=== PATIENT | female | born 1945 | race Caucasian/White ===

== ENCOUNTER 2016-12-07 18:54 | Inpatient (IN) | payer MEDICARE, OTHER ==
[~2016-12-07] VITALS: Ht 165.1 cm; Wt 126.6 kg
[~2016-12-07 18:54] MED LIST: ACET1TAB33 PO; CAPT12.52 PO; CARV3.12 PO; CARV3.122 PO; CLOP75TA PO; DIAZ2TAB PO; DIAZ5TAB PO; DIAZ5TAB4 PO; DIPH25CA58 PO; DULO60CA6 PO; FAMO-63 PO; FAMO20TA5 PO; FENO145T2 PO; FENO48TA16 PO; FURO-69 PO; FURO20TA3 PO; LANS30CA PO; LEXAPRO5 MG PO; POTA20TA12 PO; POTA20TA4 PO; POTA2IV.2 IV; PRED20TA PO; SIMV5TAB PO; SIMV5TAB5 PO; [UNRECOGNIZED DRUG - CODE] MC
[2016-12-07] MEDS ORDERED: IV NORMAL SALINE 1000ML BAG 1,000 ML IV ONE (19:30)
--- NOTE | 2016-12-07 19:30 | PHYS DOC ---
Past Medical History Past Medical History: CAD, CHF, GERD, Hypertension Past Surgical History: Other Additional Past Surgical Histo: COLOSTOMY Alcohol Use: None Drug Use: None Adult General Chief Complaint Chief Complaint: SHORTNESS OF BREATH HPI HPI Patient is a 71 year old female who presents with altered mental status and hypoxia from the fpc. Patient was transferred to us from [facility] for hypoxia with O2 saturations in the 70s. The fpc was a poor historian and does not know much about the patient. Reported no fevers. In the emergency room the patient was 77% on room air and on 4 L now patient's above 90 %. Patient had a left mastectomy and colostomy. Pertinent exam findings: Alert and oriented to person and place Tachycardia with no murmurs Decreased breath sounds bilaterally ED course: Patient was seen and evaluated and a septic workup was ordered 1915: EKG shows sinus tach rate of 104 no STEMI 2034: Discussed CC/HP/PMH with Dr. Merrill and recommends admit 2052: Pt PCP is Dr. Wyman who admits his own, therefore paged Dr. Wyman 2057: Discussed CC/HP/PMH with Dr. Wyman and recommends admit and consult pulmonary [] Pertinent results: Troponin negative CBC unremarkable CO2 of 40 CXR atelectasis at the bases CT angiogram pending MDM: After reviewing the chart, CC/HPI/PMH, physical exam, [lab results], [ radiological results], I will admit the patient for altered mental status and hypoxia and appears the patient has possible pneumonia on CT scan therefore we' ll start the patient on antibiotics. Review of Systems Review of Systems Review of systems are limited secondary to patient's clinical condition Current Medications Current Medications Current Medications Medications (Trade) Dose Ordered Sig/Meghana Start Time Stop Time Status Last Admin Dose Admin Iohexol (Omnipaque 300 Mg/ml) 75 ml 1X ONCE 12/07/16 20:15 12/07/16 20:17 DC 12/07/16 20:37 75 ML Sodium Chloride 1,000 ml @ 1,000 mls/hr 1X ONCE 12/07/16 19:30 12/07/16 20:29 DC 12/07/16 19:30 1,000 MLS/HR Allergies Allergies Allergies Coded Allergies Type Severity Reaction Last Updated Verified KAMERON Inhibitors Allergy Severe angioedema 07/09/16 Yes aspirin Allergy Intermediate 09/10/15 Yes Physical Exam Physical Exam GEN.: No apparent distress. Alert and oriented 2 HEENT: Head is normocephalic, atraumatic NECK: Supple. LUNGS: Decreased breath sounds bilaterally. HEART: Tachycardia, S1, S2 present. Peripheral pulses intact ABDOMEN: Soft, nontender. Positive bowel sounds. EXTREMITIES: Without any cyanosis. NEUROLOGIC: No focal neurological deficits PSYCHIATRIC: Confused. SKIN: No ulcerations, dry mucous membranes Current Patient Data Vital Signs Vital Signs Date Time Temp Pulse Resp B/P (MAP) Pulse Ox O2 Delivery O2 Flow Rate FiO2 12/07/16 18:59 98.6 107 24 143/96 (112) 77 Room Air 98.6 Lab Values Laboratory Tests Test 12/07/16 19:45 White Blood Count 10.4 x10^3/uL (4.0-11.0) Red Blood Count 4.69 x10^6/uL (3.50-5.40) Hemoglobin 13.2 g/dL (12.0-15.5) Hematocrit 40.1 % (36.0-47.0) Mean Corpuscular Volume 86 fL (79-100) Mean Corpuscular Hemoglobin 28 pg (25-35) Mean Corpuscular Hemoglobin Concent 33 g/dL (31-37) Red Cell Distribution Width 14.3 % (11.5-14.5) Platelet Count 315 x10^3/uL (140-400) Neutrophils (%) (Auto) 74 % (31-73) H Lymphocytes (%) (Auto) 14 % (24-48) L Monocytes (%) (Auto) 10 % (0-9) H Eosinophils (%) (Auto) 2 % (0-3) Basophils (%) (Auto) 1 % (0-3) Neutrophils # (Auto) 7.7 x10^3uL (1.8-7.7) Lymphocytes # (Auto) 1.5 x10^3/uL (1.0-4.8) Monocytes # (Auto) 1.1 x10^3/uL (0.0-1.1) Eosinophils # (Auto) 0.2 x10^3/uL (0.0-0.7) Basophils # (Auto) 0.1 x10^3/uL (0.0-0.2) Sodium Level 144 mmol/L (136-145) Potassium Level 3.8 mmol/L (3.5-5.1) Chloride Level 101 mmol/L (98-107) Carbon Dioxide Level 40 mmol/L (21-32) H Anion Gap 3 (6-14) L Blood Urea Nitrogen 12 mg/dL (7-20) Creatinine 0.7 mg/dL (0.6-1.0) Estimated GFR (Cockcroft-Gault) 82.0 BUN/Creatinine Ratio 17 (6-20) Glucose Level 134 mg/dL (70-99) H Lactic Acid Level 1.0 mmol/L (0.4-2.0) Calcium Level 8.6 mg/dL (8.5-10.1) Total Bilirubin 0.3 mg/dL (0.2-1.0) Aspartate Amino Transferase (AST) 14 U/L (15-37) L Alanine Aminotransferase (ALT) 21 U/L (14-59) Alkaline Phosphatase 74 U/L (46-116) Troponin I Quantitative < 0.017 ng/mL (0.000-0.055) Total Protein 6.8 g/dL (6.4-8.2) Albumin 2.8 g/dL (3.4-5.0) L Albumin/Globulin Ratio 0.7 (1.0-1.7) L Lipase 105 U/L (73-393) Laboratory Tests 12/07/16 19:45 Laboratory Tests 12/07/16 19:45 EKG EKG 1916: EKG shows sinus tach rate of 104 no STEMI[] Radiology/Procedures Radiology/Procedures Chest x-ray atelectasis bilaterally CTA of the chest pending [] Course & Med Decision Making Course & Med Decision Making Pertinent Labs and Imaging studies reviewed. (See chart for details) [] Dragon Disclaimer Dragon Disclaimer This electronic medical record was generated, in whole or in part, using a voice recognition dictation system. Departure Departure Impression: Primary Impression: Hypoxia Additional Impressions: Pneumonia Altered mental status Disposition: ADMITTED INPATIENT Admitting Physician: Sonia Wyman Condition: STABLE Referrals: SONIA WYMAN MD (PCP) Problem Qualifiers Additional Impressions: Pneumonia Pneumonia type: due to unspecified organism Laterality: bilateral Lung location: lower lobe of lung Qualified Codes: J18.9 - Pneumonia, unspecified organism Altered mental status Altered mental status type: unspecified Qualified Codes: R41.82 - Altered mental status, unspecified RAFAEL PITT DO Dec 07, 2016 19:30
[2016-12-07 19:56] LABS: BASO # 0.1 x10^3/uL (0.0-0.2); BASO % 1 % (0-3); EOS % 2 % (0-3); HEMATOCRIT 40.1 % (36.0-47.0); HEMOGLOBIN 13.2 g/dL (12.0-15.5); LYMPH # 1.5 x10^3/uL (1.0-4.8); LYMPH % 14 % (24-48); MEAN CORPUSCULAR HEMOGLOBIN 28 pg (25-35); MEAN CORPUSCULAR HGB CONC 33 g/dL (31-37); MEAN CORPUSCULAR VOLUME 86 fL (79-100); MONO % 10 % (0-9); NEUT % 74 % (31-73); PLATELET COUNT 315 x10^3/uL (140-400); RED BLOOD COUNT 4.69 x10^6/uL (3.50-5.40); RED CELL DISTRIBUTION WIDTH 14.3 % (11.5-14.5); WHITE BLOOD COUNT 10.4 x10^3/uL (4.0-11.0)
[2016-12-07 20:07] LABS: CALCIUM 8.6 mg/dL (8.5-10.1); CREATININE 0.7 mg/dL (0.6-1.0); POTASSIUM 3.8 mmol/L (3.5-5.1)
[2016-12-07 20:14] LABS: ALBUMIN 2.8 g/dL (3.4-5.0); ALBUMIN/GLOBULIN RATIO 0.7 (1.0-1.7); TOTAL BILIRUBIN 0.3 mg/dL (0.2-1.0); TOTAL PROTEIN 6.8 g/dL (6.4-8.2)
[2016-12-07] MEDS ORDERED: IOHEXOL 300 MG/ML 75 ML VIAL IV ONE (20:15)
[2016-12-07] MEDS ORDERED: MORPHINE SULFATE 4 MG/ML DISP.SYRIN. IV PRN (21:00)
[2016-12-07] MEDS ORDERED: ACETAMINOPHEN 325 MG TABLET. PO PRN (21:00)
[2016-12-07] MEDS ORDERED: ONDANSETRON PF 4 MG/2 ML VIAL. IV PRN (21:00)
--- NOTE | 2016-12-07 21:05 | RAD ---
Examination: CT angiography chest HISTORY: History of shortness of breath COMPARISON: None available TECHNIQUE: Axial CT scan images were performed with IV contrast. Coronal sagittal 3-D MIP reformats were performed Exposure: One or more of the following individualized dose reduction techniques were utilized for this examination: 1. Automated exposure control 2. Adjustment of the mA and/or kV according to patient size 3. Use of iterative reconstruction technique FINDINGS: Partially visualized enlarged appearing left thyroid lobe. The central airways are patent The caliber of the aorta grossly appears unremarkable. There is no evidence of filling defect identified in the main pulmonary arterial trunk and right and left main pulmonary arteries. The evaluation of the segmental branches of the pulmonary arteries is limited on this examination Patchy groundglass airspace opacities identified in the right upper lobe, right middle lobe and left upper lobe of the lung.. Bibasilar lung consolidation disease with air bronchograms identified left greater than right The visualized liver, spleen, adrenals grossly appears unremarkable Moderate degenerative changes thoracic spine IMPRESSION: 1. Bibasilar lung consolidation changes with air bronchograms likely pneumonia. Follow-up to resolution. 2. No evidence of central pulmonary embolism. 3. Patchy groundglass airspace opacities identified in the bilateral lungs likely atelectasis or pneumonitis. 4. Partially visualized enlarged left lobe of the thyroid gland. Electronically signed by: Manny Wharton MD (12/07/2016 9:03 PM)
[2016-12-07 21:06] LABS: BILIRUBIN,URINE NEGATIVE (NEG); GLUCOSE,URINE NEGATIVE (NEG); NITRITE,URINE NEGATIVE (NEG); PROTEIN,URINE NEGATIVE (NEG-TRACE)
[2016-12-07 21:15] LABS: BACTERIA,URINE 0 /HPF (0-FEW); RBC,URINE >40 /HPF (0-2); SQUAMOUS EPITHELIAL CELL,UR OCC /LPF; WBC,URINE 0 /HPF (0-4)
--- NOTE | 2016-12-07 21:25 | ACF ---
Admission Forms Criteria PNEUMONIA, COMMUNITY ACQUIRED Clinical Indications for Admission to Inpatient Care (Place 'X' for any and all applicable criteria): Admission to inpatient status for two midnights or more is indicated for ANY ONE of the following (1)(2)(3): [X]I. Hypoxia [ ]II. Hemodynamic instability [ ]III. Altered mental status that is severe or persistent [ ]IV. Dehydration that is severe or persistent. [ ]V. Bacteremia [X]. Moderate-risk or high-risk category patients (Pneumonia Severity Index ( PSI) class IV or V, or CURB-65 score of 3 or greater). [ ]VII. Intermediate-risk category patients (e.g., PSI class III or CURB-65 score 2) who do not improve with outpatient and observation care treatment [ ]VIII. Outpatient treatment failure as indicated by 1 or more of the following(9): [ ]a) Failure to respond to antibiotic (eg, resistant organism) [ ]b) Clinically significant adverse effects from medication (eg, vomiting) [ ]c) Complications of pneumonia (eg, empyema, bacteremia) [ ]d) Significant worsening of comorbid cond necessitating inpatient care (eg, chronic heart failure) [ ]IX. Appropriate diagnostic testing and treatment unavailable in outpatient or recovery facility (eg, testing or infection control measures unavailable) [ ]X. Respiratory finding (eg. tachypnea) that do not respond to outpatient observation care treatment [ ]XI. Complicated pleural effusions (eg, emphysema, exudative, loculated) [ ]XII. Immunocompromised patients (e.g., AIDS, chronic steroid use) at moderate or high risk based on clinical evaluation. Extended stay beyond goal length of stay may be needed for (20) [ ]a) Unclear diagnosis [ ]b) Pleural disease [ ]c) Severe pneumonia or treatment failure [ ]d) Respiratory failure [ ]e) New onset hyponatremia (serum Na concentration less than 135 mEq/L(mmol/ L) [ ]f) Clinically significant comorbid illness (eg, heart failure, atrial fibrillation with rapid heart rate, alcohol withdrawal, renal insufficiency)(34)(35) [ ]g) Comorbid acute exacerbation of COPD(36) [ ]h) Concomitant diagnosis of malignancy [ ]i) Concomitant altered mental status [ ]j) Culture-identified Gram-negative or antibiotic-resistant organism (eg, Pseudomonas, methicillin-resistant Staphylococcus aureus MRSA)(30) [ ]k) Healthcare-associated pneumonia (36) The original [facility] content created by [facility] has been revised. The portions of the content which have been revised are identified through the use of italic text, and [facility] has neither reviewed nor approved the modified material. All other unmodified content is copyright [facility]. Please see references footnoted in the original [facility] edition 2015 Admission Criteria Met?: Yes ARIANA ASKEW Dec 07, 2016 21:25
[2016-12-07] MEDS ORDERED: VANCOMYCIN 2 GM in IV NORMAL SALINE 500ML BAG 500 ML IV ONE (21:30)
[2016-12-07 21:45] VITALS: BP 138/72
[2016-12-07] MEDS: CEFEPIME HCL 1 GM in IV NORMAL SALINE 50ML 50 ML IV SCH (22:08)
[2016-12-07] MEDS ORDERED: ENOXAPARIN 40 MG/0.4 ML SYRINGE. SQ SCH (22:30)
[2016-12-07] MEDS ORDERED: ALBUTEROL SULFATE 2.5 MG/3 ML NEBU. NEB PRN (22:30)
[2016-12-07] MEDS: VANCOMYCIN PER PHARMACY MC PRN (22:58)
[2016-12-07 23:00] VITALS: BP 139/77
[2016-12-07 23:47] LABS: HCO3 ABG 31 mmol/L (21-28); PH ABG 7.31 (7.35-7.45); PO2 ABG 84 mmHg (65-108); SAT O2 ABG 94 % (92-99)
[2016-12-07 23:49] LABS: PCO2 ABG 63 mmHg (35-46)
[2016-12-08] VITALS (15 sets, daily range): BP systolic 112–177; BP diastolic 49–74
[2016-12-08] MEDS: FAMOTIDINE 20 MG TABLET. PO SCH ×2 (00:19→21:08)
[2016-12-08] MEDS: diazePAM 5 MG TABLET PO SCH ×2 (00:19→21:00)
[2016-12-08] MEDS: SIMVASTATIN 10 MG TABLET PO SCH ×2 (00:20→21:08)
[2016-12-08] MEDS: IV NORMAL SALINE 1000ML BAG 1,000 ML IV SCH ×2 (00:22→11:50)
[2016-12-08] MEDS: methylPREDNISolone SOD SUCC PF 125 MG/2 ML VIAL. IV SCH ×3 (05:31→21:08)
[2016-12-08] MEDS: CEFEPIME HCL 1 GM in IV NORMAL SALINE 50ML 50 ML IV SCH ×3 (05:33→22:00)
--- NOTE | 2016-12-08 07:08 | EKG ---
[facility] [address] [place] [address] Test Date: 2016-12-07 Test Time: 19:13:47 Pat Name: BLANCHE AGUILA Department: Room: Gender: F Director Custom: : 1945 Requested By: RAFAEL PITT Order Number: [id number] Reading MD: Measurements Intervals [place] Rate: 104 P: 32 MD: 152 QRS: 11 QRSD: 92 T: 28 QT: 326 QTc: 429 Interpretive Statements SINUS TACHYCARDIA QRS(T) CONTOUR ABNORMALITY CONSIDER ANTEROLATERAL MYOCARDIAL DAMAGE CONSISTENT WITH INFERIOR INFARCT PROBABLY OLD ABNORMAL ECG RI6.01 No previous ECG available for comparison
[2016-12-08] MEDS: IPRATRPIUM/ALBUTEROL 0.5/2.5MG 3 ML NEBU. NEB SCH ×4 (07:38→19:30)
--- NOTE | 2016-12-08 07:57 | RAD ---
Indication shortness of breath. Unresponsive patient. A single view of the chest was obtained and is compared to an exam 09/11/2015. There is mild generalized cardiomegaly. There is volume loss in the left lung base compatible with atelectasis or pneumonia. There is no gross congestive heart failure. There are degenerative changes about the right shoulder. IMPRESSION: Mild cardiomegaly, similar. Volume loss at the left lung base may reflect atelectasis or pneumonia.
[2016-12-08 08:06] LABS: OBC FLU VALID
[2016-12-08 08:39] LABS: HCO3 ABG 38 mmol/L (21-28); PH ABG 7.33 (7.35-7.45); PO2 ABG 58 mmHg (65-108); SAT O2 ABG 89 % (92-99)
[2016-12-08] MEDS: FUROSEMIDE 20 MG TABLET PO SCH (08:45)
[2016-12-08] MEDS: CARVEDILOL 3.125 MG TABLET. PO SCH ×2 (08:45→17:03)
[2016-12-08] MEDS: POTASSIUM CHLORIDE 20 MEQ TABLET.ER. PO SCH ×2 (08:46→17:03)
[2016-12-08] MEDS: DULoxetine HCL 30 MG CAPSULE.DR PO SCH (08:46)
[2016-12-08] MEDS: VANCOMYCIN 1.75 GM in IV NORMAL SALINE 500ML BAG 500 ML IV SCH ×2 (08:51→21:08)
[2016-12-08 09:09] LABS: BASO % 0 % (0-3); EOS % 1 % (0-3); HEMATOCRIT 40.7 % (36.0-47.0); HEMOGLOBIN 13.3 g/dL (12.0-15.5); LYMPH # 0.7 x10^3/uL (1.0-4.8); LYMPH % 8 % (24-48); MEAN CORPUSCULAR HEMOGLOBIN 28 pg (25-35); MEAN CORPUSCULAR HGB CONC 33 g/dL (31-37); MEAN CORPUSCULAR VOLUME 87 fL (79-100); MONO % 4 % (0-9); NEUT % 87 % (31-73); PLATELET COUNT 323 x10^3/uL (140-400); RED CELL DISTRIBUTION WIDTH 14.5 % (11.5-14.5); WHITE BLOOD COUNT 8.8 x10^3/uL (4.0-11.0)
[2016-12-08 09:32] LABS: CALCIUM 8.3 mg/dL (8.5-10.1); CREATININE 0.5 mg/dL (0.6-1.0); GFR 120.9; POTASSIUM 3.8 mmol/L (3.5-5.1)
--- NOTE | 2016-12-08 09:52 | PDOC1 ---
HISTORY AND PHYSICAL Chief Complaint Chief Complaint This year 71 yr old female has been admitted with a chief complaint of sob, mental status changes, found to have bilateral pneumonia.Pt was placed on BIPAP ,today more lethargic,will transfer to ICU. pt from [place] ,[facility], h/o severe copd.cough and congestion for last couple of days. Problems: Past Medical History Cardiovascular: CAD, HTN, Hyperlipidemia Pulmonary: COPD GI: Diverticulosis Heme/Onc: Cancer Renal/: Chronic renal insuff, UTI Past Surgical History Past Surgical History: Appendectomy, Mastectomy, Other (colostomy) Past Family History Family History: Family History Unknown Past Social History PSH ex smoker, no alcohol, [place] Review of Symptoms Review of Symptoms General ROS: positive for SOB. Psychological ROS: negative Ophthalmic ROS: negative ENT ROS: negative Allergy and Immunology ROS: negative Hematology and Lymphatic: negative Endocrine ROS: negative Cardiovascular ROS: no chest pain or dyspnea on exertion Gastrointestinal ROS: no abdominal pain, change in bowel habits, or black or bloody stools Genito-Urinary ROS: no dysuria, trouble voiding, or hematuria Musculoskeletal ROS: no pain Neurological ROS: negative Dermatological ROS: no rash Medications Current Medications Acetaminophen (Tylenol) 650 mg PRN Q4HRS PRN PO FEVER; Start 12/07/16 at 21:00; Stop 12/08/16 at 20:59 Acetaminophen/ Hydrocodone Bitart (Lortab 5/325) 1 tab PRN Q4HRS PRN PO MILD PAIN; Start 12/07/16 at 22:15 Albuterol Sulfate (Ventolin Neb Soln) 2.5 mg PRN QID PRN NEB SHORTNESS OF BREATH; Start 12/07/16 at 22:30 Albuterol/ Ipratropium (Duoneb) 3 ml RTQID NEB Last administered on 12/08/16 07 :38; Start 12/08/16 at 08:00 Carvedilol (Coreg) 3.125 mg BIDWMEALS PO Last administered on 12/08/16 08:45; Start 12/08/16 at 08:00 Cefepime HCl 1 gm/ Sodium Chloride 50 ml @ 100 mls/hr Q8HRS IV Last administered on 12/08/16 05:33; Start 12/07/16 at 22:00 Diazepam (Valium) 5 mg HS PO Last administered on 12/08/16 00:19; Start at 23:00 Duloxetine HCl (Cymbalta) 60 mg DAILY PO Last administered on 12/08/16 08:46; Start 12/08/16 at 09:00 Enoxaparin Sodium (Lovenox 40mg Syringe) 40 mg Q24H SQ Last administered on 12/08 00:21; Start 12/07/16 at 22:30 Famotidine (Pepcid) 20 mg HS PO Last administered on 12/08/16 00:19; Start 12/07 at 23:00 Furosemide (Lasix) 20 mg DAILY PO Last administered on 12/08/16 08:45; Start at 09:00 Iohexol (Omnipaque 300 Mg/ml) 75 ml 1X ONCE IV Last administered on 12/07/16 20:37; Start 12/07/16 at 20:15; Stop 12/07/16 at 20:17; Status DC Methylprednisolone Sodium Succinate (SOLU-Medrol 125MG VIAL) 80 mg Q8HRS IV Last administered on 12/08/16 05:31; Start 12/08/16 at 06:00 Morphine Sulfate 4 mg PRN Q2HR PRN IV PAIN; Start 12/07/16 at 21:00; Stop at 20:59 Ondansetron HCl (Zofran) 4 mg PRN Q8HRS PRN IV NAUSEA/VOMITING; Start 12/07/16 at 21:00; Stop 12/08/16 at 20:59 Potassium Chloride (Klor-Con) 20 meq BIDWMEALS PO Last administered on 08:46; Start 12/08/16 at 08:00 Simvastatin (Zocor) 5 mg HS PO Last administered on 12/08/16 00:20; Start at 21:00 Sodium Chloride 1,000 ml @ 75 mls/hr [id number] IV Last administered on 12/08/16 00:22; Start 12/07/16 at 22:30 Sodium Chloride 1,000 ml @ 1,000 mls/hr 1X ONCE IV Last administered on 19:30; Start 12/07/16 at 19:30; Stop 12/07/16 at 20:29; Status DC Vancomycin HCl 1 each 1X ONCE MC ; Start 12/09/16 at 09:30; Stop 12/09/16 at 09: 31 Vancomycin HCl (Vanco Per Pharmacy) 1 each PRN DAILY PRN MC SEE COMMENTS Last administered on 12/07/16 22:58; Start 12/07/16 at 21:00 Vancomycin HCl 1.75 gm/Sodium Chloride 500 ml @ 250 mls/hr Q12H IV Last administered on 12/08/16 08:51; Start 12/08/16 at 10:00 Vancomycin HCl 2 gm/Sodium Chloride 500 ml @ 250 mls/hr 1X ONCE IV Last administered on 12/07/16 22:08; Start 12/07/16 at 21:30; Stop 12/07/16 at 23:29; Status DC Allergy Allergies Coded Allergies Type Severity Reaction Last Updated Verified KAMERON Inhibitors Allergy Severe angioedema 07/09/16 Yes aspirin Allergy Intermediate 09/10/15 Yes Physical Exam Physical Exam General appearance - lethargy on BIPAP Mental Status - lethargic Head - prominent fore head and skull Chest - wheezes, present Heart - S1 and S2 normal Abdomen - soft, nontender,colostomy bag Neurological - lethargy Musculoskeletal - no muscular tenderness noted Extremities - no pedal edema Skin - warm and dry Labs Laboratory Tests Test 12/07/16 19:45 12/07/16 20:58 12/07/16 23:40 12/08/16 06:30 White Blood Count 10.4 x10^3/uL (4.0-11.0) Red Blood Count 4.69 x10^6/uL (3.50-5.40) Hemoglobin 13.2 g/dL (12.0-15.5) Hematocrit 40.1 % (36.0-47.0) Mean Corpuscular Volume 86 fL (79-100) Mean Corpuscular Hemoglobin 28 pg (25-35) Mean Corpuscular Hemoglobin Concent 33 g/dL (31-37) Red Cell Distribution Width 14.3 % (11.5-14.5) Platelet Count 315 x10^3/uL (140-400) Neutrophils (%) (Auto) 74 % (31-73) Lymphocytes (%) (Auto) 14 % (24-48) Monocytes (%) (Auto) 10 % (0-9) Eosinophils (%) (Auto) 2 % (0-3) Basophils (%) (Auto) 1 % (0-3) Neutrophils # (Auto) 7.7 x10^3uL (1.8-7.7) Lymphocytes # (Auto) 1.5 x10^3/uL (1.0-4.8) Monocytes # (Auto) 1.1 x10^3/uL (0.0-1.1) Eosinophils # (Auto) 0.2 x10^3/uL (0.0-0.7) Basophils # (Auto) 0.1 x10^3/uL (0.0-0.2) Sodium Level 144 mmol/L (136-145) Potassium Level 3.8 mmol/L (3.5-5.1) Chloride Level 101 mmol/L (98-107) Carbon Dioxide Level 40 mmol/L (21-32) Anion Gap 3 (6-14) Blood Urea Nitrogen 12 mg/dL (7-20) Creatinine 0.7 mg/dL (0.6-1.0) Estimated GFR (Cockcroft-Gault) 82.0 BUN/Creatinine Ratio 17 (6-20) Glucose Level 134 mg/dL (70-99) Lactic Acid Level 1.0 mmol/L (0.4-2.0) Calcium Level 8.6 mg/dL (8.5-10.1) Total Bilirubin 0.3 mg/dL (0.2-1.0) Aspartate Amino Transf (AST/SGOT) 14 U/L (15-37) Alanine Aminotransferase (ALT/SGPT) 21 U/L (14-59) Alkaline Phosphatase 74 U/L (46-116) Troponin I Quantitative < 0.017 ng/mL (0.000-0.055) Total Protein 6.8 g/dL (6.4-8.2) Albumin 2.8 g/dL (3.4-5.0) Albumin/Globulin Ratio 0.7 (1.0-1.7) Lipase 105 U/L (73-393) Urine Collection Type U cath Urine Color Yellow Urine Clarity Clear Urine pH 6.0 Urine Specific [place] >=1.030 Urine Protein Negative mg/dL (NEG-TRACE) Urine Glucose (UA) Negative mg/dL (NEG) Urine Ketones (Stick) Negative mg/dL (NEG) Urine Blood Large (NEG) Urine Nitrite Negative (NEG) Urine Bilirubin Negative (NEG) Urine Urobilinogen Dipstick 1.0 mg/dL (0.2 mg/dL) Urine Leukocyte Esterase Negative (NEG) Urine RBC >40 /HPF (0-2) Urine WBC 0 /HPF (0-4) Urine Squamous Epithelial Cells Occ /LPF Urine Transitional Epithelial Cells Occ /LPF Urine Bacteria 0 /HPF (0-FEW) Urine Mucus Slight /LPF O2 Saturation 94 % (92-99) Arterial Blood pH 7.31 (7.35-7.45) Arterial Blood pCO2 at Patient Temp 63 mmHg (35-46) Arterial Blood pO2 at Patient Temp 84 mmHg (65-108) Arterial Blood HCO3 31 mmol/L (21-28) Arterial Blood Base Excess 3 mmol/L (-3-3) FiO2 36.0 Influenza Type A Antigen Negative (NEGATIVE) Influenza Type B Antigen Negative (NEGATIVE) Test 12/08/16 07:40 White Blood Count 8.8 x10^3/uL (4.0-11.0) Red Blood Count 4.70 x10^6/uL (3.50-5.40) Hemoglobin 13.3 g/dL (12.0-15.5) Hematocrit 40.7 % (36.0-47.0) Mean Corpuscular Volume 87 fL (79-100) Mean Corpuscular Hemoglobin 28 pg (25-35) Mean Corpuscular Hemoglobin Concent 33 g/dL (31-37) Red Cell Distribution Width 14.5 % (11.5-14.5) Platelet Count 323 x10^3/uL (140-400) Neutrophils (%) (Auto) 87 % (31-73) Lymphocytes (%) (Auto) 8 % (24-48) Monocytes (%) (Auto) 4 % (0-9) Eosinophils (%) (Auto) 1 % (0-3) Basophils (%) (Auto) 0 % (0-3) Neutrophils # (Auto) 7.7 x10^3uL (1.8-7.7) Lymphocytes # (Auto) 0.7 x10^3/uL (1.0-4.8) Monocytes # (Auto) 0.3 x10^3/uL (0.0-1.1) Eosinophils # (Auto) 0.0 x10^3/uL (0.0-0.7) Basophils # (Auto) 0.0 x10^3/uL (0.0-0.2) Sodium Level 146 mmol/L (136-145) Potassium Level 3.8 mmol/L (3.5-5.1) Chloride Level 104 mmol/L (98-107) Carbon Dioxide Level 38 mmol/L (21-32) Anion Gap 4 (6-14) Blood Urea Nitrogen 12 mg/dL (7-20) Creatinine 0.5 mg/dL (0.6-1.0) Estimated GFR (Cockcroft-Gault) 120.9 Glucose Level 126 mg/dL (70-99) Calcium Level 8.3 mg/dL (8.5-10.1) Laboratory Tests Test 12/07/16 19:45 12/07/16 20:58 12/07/16 23:40 12/08/16 06:30 White Blood Count 10.4 x10^3/uL (4.0-11.0) Red Blood Count 4.69 x10^6/uL (3.50-5.40) Hemoglobin 13.2 g/dL (12.0-15.5) Hematocrit 40.1 % (36.0-47.0) Mean Corpuscular Volume 86 fL (79-100) Mean Corpuscular Hemoglobin 28 pg (25-35) Mean Corpuscular Hemoglobin Concent 33 g/dL (31-37) Red Cell Distribution Width 14.3 % (11.5-14.5) Platelet Count 315 x10^3/uL (140-400) Neutrophils (%) (Auto) 74 % (31-73) Lymphocytes (%) (Auto) 14 % (24-48) Monocytes (%) (Auto) 10 % (0-9) Eosinophils (%) (Auto) 2 % (0-3) Basophils (%) (Auto) 1 % (0-3) Neutrophils # (Auto) 7.7 x10^3uL (1.8-7.7) Lymphocytes # (Auto) 1.5 x10^3/uL (1.0-4.8) Monocytes # (Auto) 1.1 x10^3/uL (0.0-1.1) Eosinophils # (Auto) 0.2 x10^3/uL (0.0-0.7) Basophils # (Auto) 0.1 x10^3/uL (0.0-0.2) Sodium Level 144 mmol/L (136-145) Potassium Level 3.8 mmol/L (3.5-5.1) Chloride Level 101 mmol/L (98-107) Carbon Dioxide Level 40 mmol/L (21-32) Anion Gap 3 (6-14) Blood Urea Nitrogen 12 mg/dL (7-20) Creatinine 0.7 mg/dL (0.6-1.0) Estimated GFR (Cockcroft-Gault) 82.0 BUN/Creatinine Ratio 17 (6-20) Glucose Level 134 mg/dL (70-99) Lactic Acid Level 1.0 mmol/L (0.4-2.0) Calcium Level 8.6 mg/dL (8.5-10.1) Total Bilirubin 0.3 mg/dL (0.2-1.0) Aspartate Amino Transf (AST/SGOT) 14 U/L (15-37) Alanine Aminotransferase (ALT/SGPT) 21 U/L (14-59) Alkaline Phosphatase 74 U/L (46-116) Troponin I Quantitative < 0.017 ng/mL (0.000-0.055) Total Protein 6.8 g/dL (6.4-8.2) Albumin 2.8 g/dL (3.4-5.0) Albumin/Globulin Ratio 0.7 (1.0-1.7) Lipase 105 U/L (73-393) Urine Collection Type U cath Urine Color Yellow Urine Clarity Clear Urine pH 6.0 Urine Specific [place] >=1.030 Urine Protein Negative mg/dL (NEG-TRACE) Urine Glucose (UA) Negative mg/dL (NEG) Urine Ketones (Stick) Negative mg/dL (NEG) Urine Blood Large (NEG) Urine Nitrite Negative (NEG) Urine Bilirubin Negative (NEG) Urine Urobilinogen Dipstick 1.0 mg/dL (0.2 mg/dL) Urine Leukocyte Esterase Negative (NEG) Urine RBC >40 /HPF (0-2) Urine WBC 0 /HPF (0-4) Urine Squamous Epithelial Cells Occ /LPF Urine Transitional Epithelial Cells Occ /LPF Urine Bacteria 0 /HPF (0-FEW) Urine Mucus Slight /LPF O2 Saturation 94 % (92-99) Arterial Blood pH 7.31 (7.35-7.45) Arterial Blood pCO2 at Patient Temp 63 mmHg (35-46) Arterial Blood pO2 at Patient Temp 84 mmHg (65-108) Arterial Blood HCO3 31 mmol/L (21-28) Arterial Blood Base Excess 3 mmol/L (-3-3) FiO2 36.0 Influenza Type A Antigen Negative (NEGATIVE) Influenza Type B Antigen Negative (NEGATIVE) Test 12/08/16 07:40 White Blood Count 8.8 x10^3/uL (4.0-11.0) Red Blood Count 4.70 x10^6/uL (3.50-5.40) Hemoglobin 13.3 g/dL (12.0-15.5) Hematocrit 40.7 % (36.0-47.0) Mean Corpuscular Volume 87 fL (79-100) Mean Corpuscular Hemoglobin 28 pg (25-35) Mean Corpuscular Hemoglobin Concent 33 g/dL (31-37) Red Cell Distribution Width 14.5 % (11.5-14.5) Platelet Count 323 x10^3/uL (140-400) Neutrophils (%) (Auto) 87 % (31-73) Lymphocytes (%) (Auto) 8 % (24-48) Monocytes (%) (Auto) 4 % (0-9) Eosinophils (%) (Auto) 1 % (0-3) Basophils (%) (Auto) 0 % (0-3) Neutrophils # (Auto) 7.7 x10^3uL (1.8-7.7) Lymphocytes # (Auto) 0.7 x10^3/uL (1.0-4.8) Monocytes # (Auto) 0.3 x10^3/uL (0.0-1.1) Eosinophils # (Auto) 0.0 x10^3/uL (0.0-0.7) Basophils # (Auto) 0.0 x10^3/uL (0.0-0.2) Sodium Level 146 mmol/L (136-145) Potassium Level 3.8 mmol/L (3.5-5.1) Chloride Level 104 mmol/L (98-107) Carbon Dioxide Level 38 mmol/L (21-32) Anion Gap 4 (6-14) Blood Urea Nitrogen 12 mg/dL (7-20) Creatinine 0.5 mg/dL (0.6-1.0) Estimated GFR (Cockcroft-Gault) 120.9 Glucose Level 126 mg/dL (70-99) Calcium Level 8.3 mg/dL (8.5-10.1) Vitals Vital Signs Date Time Temp Pulse Resp B/P (MAP) Pulse Ox O2 Delivery O2 Flow Rate FiO2 12/08/16 08:45 102 177/66 12/08/16 08:00 Bi-pap 12/08/16 07:56 97.9 18 92 97.9 12/07/16 23:22 4.0 VTE Prophylaxis VTE Prophylaxis Devices: Yes VTE Pharmacological Prophylaxi: Yes Assessment Assessment 1.Acute resp failure with hypoxia and hypercapnia. 2.Health care associated Pneumonia. 3.Encephalopathy due to resp failure 4.Ch COPD 5.CAD stable 6.Left mastectomy for breast ca 7. H/o Colostomy for diverticular perforation Plan Plan BIPAP. Pulmonary consult. Vanco+cefepime. IV steroids Oxygen. DVT prevention move to ICU. critical care more than 30 mts coordinating care. For more details regarding further plans, please refer to the orders. YUE WYMAN MD Dec 08, 2016 09:52
[2016-12-08 10:32] LABS: FIO2 ABG 30; PCO2 ABG 73 mmHg (35-46)
[2016-12-08] MEDS: VANCOMYCIN PER PHARMACY MC PRN (10:34)
[2016-12-08 12:04] LABS: % EOS 1 % (0-5)
[2016-12-08 12:05] LABS: PLT ESTIMATE ADEQUATE (ADEQUATE)
[2016-12-08 12:39] LABS: HCO3 ABG 38 mmol/L (21-28); PH ABG 7.32 (7.35-7.45); PO2 ABG 63 mmHg (65-108); SAT O2 ABG 91 % (92-99)
--- NOTE | 2016-12-08 14:46 | PDOC2 ---
CONSULT Date of Consult Date of Consult DATE: 12/08/16 TIME: 14:44 Reason for Consult Reason for Consult: resp failure History of Present Illness Reason for Visit: PT CURRETNLY IN ICU ON BIPAP FOLLOWS COMMANDS NO CHEST PIN PRESENTED IWTH INCREASE SOA AND MENTAL STATUS CHANGE CT REVEIEWD NO PE BILATERAL PNEUMONIA PT WITH COUGH AND CONGESTION AT [place] Past Medical History Cardiovascular: CAD, HTN, Hyperlipidemia Pulmonary: COPD GI: Diverticulosis Heme/Onc: Cancer Renal/: Chronic renal insuff, UTI Past Surgical History Past Surgical History: Appendectomy, Mastectomy, Other (colostomy) Family History Family History UNKNOWN Family History: Family History Unknown Social History ALCOHOL: none Drugs: None Current Problem List Problem List Problems Medical Problems: (1) Pneumonia Status: Acute Current Medications Current Medications Current Medications Sodium Chloride 1,000 ml @ 1,000 mls/hr 1X ONCE IV Last administered on 19:30; Start 12/07/16 at 19:30; Stop 12/07/16 at 20:29; Status DC Iohexol (Omnipaque 300 Mg/ml) 75 ml 1X ONCE IV Last administered on 12/07/16 20:37; Start 12/07/16 at 20:15; Stop 12/07/16 at 20:17; Status DC Cefepime HCl 1 gm/ Sodium Chloride 50 ml @ 100 mls/hr Q8HRS IV Last administered on 12/08/16 14:00; Start 12/07/16 at 22:00 Vancomycin HCl (Vanco Per Pharmacy) 1 each PRN DAILY PRN MC SEE COMMENTS Last administered on 12/08/16 10:34; Start 12/07/16 at 21:00 Ondansetron HCl (Zofran) 4 mg PRN Q8HRS PRN IV NAUSEA/VOMITING; Start 12/07/16 at 21:00; Stop 12/08/16 at 20:59 Morphine Sulfate 4 mg PRN Q2HR PRN IV PAIN; Start 12/07/16 at 21:00; Stop at 20:59 Acetaminophen (Tylenol) 650 mg PRN Q4HRS PRN PO FEVER; Start 12/07/16 at 21:00; Stop 12/08/16 at 20:59 Vancomycin HCl 2 gm/Sodium Chloride 500 ml @ 250 mls/hr 1X ONCE IV Last administered on 12/07/16 22:08; Start 12/07/16 at 21:30; Stop 12/07/16 at 23:29; Status DC Albuterol/ Ipratropium (Duoneb) 3 ml RTQID NEB Last administered on 12/08/16 11 :25; Start 12/08/16 at 08:00 Albuterol Sulfate (Ventolin Neb Soln) 2.5 mg PRN QID PRN NEB SHORTNESS OF BREATH; Start 12/07/16 at 22:30 Sodium Chloride 1,000 ml @ 75 mls/hr [id number] IV Last administered on 12/08/16 11:50; Start 12/07/16 at 22:30 Methylprednisolone Sodium Succinate (SOLU-Medrol 125MG VIAL) 80 mg Q8HRS IV Last administered on 12/08/16 14:00; Start 12/08/16 at 06:00 Carvedilol (Coreg) 3.125 mg BIDWMEALS PO Last administered on 12/08/16 08:45; Start 12/08/16 at 08:00 Diazepam (Valium) 5 mg HS PO Last administered on 12/08/16 00:19; Start at 23:00 Famotidine (Pepcid) 20 mg HS PO Last administered on 12/08/16 00:19; Start 12/07 at 23:00 Furosemide (Lasix) 20 mg DAILY PO Last administered on 12/08/16 08:45; Start at 09:00 Potassium Chloride (Klor-Con) 20 meq BIDWMEALS PO Last administered on 08:46; Start 12/08/16 at 08:00 Simvastatin (Zocor) 5 mg HS PO Last administered on 12/08/16 00:20; Start at 21:00 Duloxetine HCl (Cymbalta) 60 mg DAILY PO Last administered on 12/08/16 08:46; Start 12/08/16 at 09:00 Acetaminophen/ Hydrocodone Bitart (Lortab 5/325) 1 tab PRN Q4HRS PRN PO MILD PAIN; Start 12/07/16 at 22:15 Enoxaparin Sodium (Lovenox 40mg Syringe) 40 mg Q24H SQ Last administered on 12/08 00:21; Start 12/07/16 at 22:30; Stop 12/08/16 at 10:29; Status DC Vancomycin HCl 1.75 gm/Sodium Chloride 500 ml @ 250 mls/hr Q12H IV Last administered on 12/08/16 08:51; Start 12/08/16 at 10:00 Vancomycin HCl 1 each 1X ONCE MC ; Start 12/09/16 at 09:30; Stop 12/09/16 at 09: 31 Enoxaparin Sodium (Lovenox 40mg Syringe) 40 mg BID SQ ; Start 12/08/16 at 21:00 Active Scripts Active Prednisone 20 Mg Tablet 50 Mg PO DAILY 5 Days Reported Diazepam 5 Mg Tablet 5 Mg PO HS Simvastatin 5 Mg Tablet 5 Mg PO HS Pepcid (Famotidine) 20 Mg Tablet 20 Mg PO HS Cymbalta (Duloxetine Hcl) 60 Mg Capsule.dr 60 Mg PO DAILY Carvedilol 3.125 Mg Tablet 1 Tab PO BID Klor-Con M20 (Potassium Chloride) 20 Meq Tab.er.prt 20 Meq PO BID Furosemide 20 Mg Tablet 20 Mg PO DAILY Allergies Allergies: Coded Allergies: KAMERON Inhibitors (Verified Allergy, Severe, angioedema, 07/09/16) aspirin (Verified Allergy, Intermediate, 09/10/15) ROS Review of System UNABLE TO OBTAIN Physical Exam General: Alert HEENT: EOMI Heart: Regular rate, Normal S1, Normal S2 Abdomen: Normal bowel sounds, Soft, No tenderness Extremities: No clubbing, No cyanosis Skin: No rashes, No breakdown Neuro: Other (ON BIAPA FOLLOW COMMMANDS) Vitals VITALS Vital Signs Date Time Temp Pulse Resp B/P (MAP) Pulse Ox O2 Delivery O2 Flow Rate FiO2 12/08/16 14:00 78 20 115/74 (88) 97 BiPAP/CPAP 12/08/16 12:00 99.1 99.1 12/07/16 23:22 4.0 Labs Labs Laboratory Tests Test 12/07/16 19:45 12/07/16 20:58 12/07/16 23:40 12/08/16 06:30 White Blood Count 10.4 x10^3/uL (4.0-11.0) Red Blood Count 4.69 x10^6/uL (3.50-5.40) Hemoglobin 13.2 g/dL (12.0-15.5) Hematocrit 40.1 % (36.0-47.0) Mean Corpuscular Volume 86 fL (79-100) Mean Corpuscular Hemoglobin 28 pg (25-35) Mean Corpuscular Hemoglobin Concent 33 g/dL (31-37) Red Cell Distribution Width 14.3 % (11.5-14.5) Platelet Count 315 x10^3/uL (140-400) Neutrophils (%) (Auto) 74 % (31-73) Lymphocytes (%) (Auto) 14 % (24-48) Monocytes (%) (Auto) 10 % (0-9) Eosinophils (%) (Auto) 2 % (0-3) Basophils (%) (Auto) 1 % (0-3) Neutrophils # (Auto) 7.7 x10^3uL (1.8-7.7) Lymphocytes # (Auto) 1.5 x10^3/uL (1.0-4.8) Monocytes # (Auto) 1.1 x10^3/uL (0.0-1.1) Eosinophils # (Auto) 0.2 x10^3/uL (0.0-0.7) Basophils # (Auto) 0.1 x10^3/uL (0.0-0.2) Sodium Level 144 mmol/L (136-145) Potassium Level 3.8 mmol/L (3.5-5.1) Chloride Level 101 mmol/L (98-107) Carbon Dioxide Level 40 mmol/L (21-32) Anion Gap 3 (6-14) Blood Urea Nitrogen 12 mg/dL (7-20) Creatinine 0.7 mg/dL (0.6-1.0) Estimated GFR (Cockcroft-Gault) 82.0 BUN/Creatinine Ratio 17 (6-20) Glucose Level 134 mg/dL (70-99) Lactic Acid Level 1.0 mmol/L (0.4-2.0) Calcium Level 8.6 mg/dL (8.5-10.1) Total Bilirubin 0.3 mg/dL (0.2-1.0) Aspartate Amino Transf (AST/SGOT) 14 U/L (15-37) Alanine Aminotransferase (ALT/SGPT) 21 U/L (14-59) Alkaline Phosphatase 74 U/L (46-116) Troponin I Quantitative < 0.017 ng/mL (0.000-0.055) Total Protein 6.8 g/dL (6.4-8.2) Albumin 2.8 g/dL (3.4-5.0) Albumin/Globulin Ratio 0.7 (1.0-1.7) Lipase 105 U/L (73-393) Urine Collection Type U cath Urine Color Yellow Urine Clarity Clear Urine pH 6.0 Urine Specific [place] >=1.030 Urine Protein Negative mg/dL (NEG-TRACE) Urine Glucose (UA) Negative mg/dL (NEG) Urine Ketones (Stick) Negative mg/dL (NEG) Urine Blood Large (NEG) Urine Nitrite Negative (NEG) Urine Bilirubin Negative (NEG) Urine Urobilinogen Dipstick 1.0 mg/dL (0.2 mg/dL) Urine Leukocyte Esterase Negative (NEG) Urine RBC >40 /HPF (0-2) Urine WBC 0 /HPF (0-4) Urine Squamous Epithelial Cells Occ /LPF Urine Transitional Epithelial Cells Occ /LPF Urine Bacteria 0 /HPF (0-FEW) Urine Mucus Slight /LPF O2 Saturation 94 % (92-99) Arterial Blood pH 7.31 (7.35-7.45) Arterial Blood pCO2 at Patient Temp 63 mmHg (35-46) Arterial Blood pO2 at Patient Temp 84 mmHg (65-108) Arterial Blood HCO3 31 mmol/L (21-28) Arterial Blood Base Excess 3 mmol/L (-3-3) FiO2 36.0 Influenza Type A Antigen Negative (NEGATIVE) Influenza Type B Antigen Negative (NEGATIVE) Test 12/08/16 07:40 12/08/16 08:00 12/08/16 11:55 White Blood Count 8.8 x10^3/uL (4.0-11.0) Red Blood Count 4.70 x10^6/uL (3.50-5.40) Hemoglobin 13.3 g/dL (12.0-15.5) Hematocrit 40.7 % (36.0-47.0) Mean Corpuscular Volume 87 fL (79-100) Mean Corpuscular Hemoglobin 28 pg (25-35) Mean Corpuscular Hemoglobin Concent 33 g/dL (31-37) Red Cell Distribution Width 14.5 % (11.5-14.5) Platelet Count 323 x10^3/uL (140-400) Neutrophils (%) (Auto) 87 % (31-73) Lymphocytes (%) (Auto) 8 % (24-48) Monocytes (%) (Auto) 4 % (0-9) Eosinophils (%) (Auto) 1 % (0-3) Basophils (%) (Auto) 0 % (0-3) Neutrophils # (Auto) 7.7 x10^3uL (1.8-7.7) Lymphocytes # (Auto) 0.7 x10^3/uL (1.0-4.8) Monocytes # (Auto) 0.3 x10^3/uL (0.0-1.1) Eosinophils # (Auto) 0.0 x10^3/uL (0.0-0.7) Basophils # (Auto) 0.0 x10^3/uL (0.0-0.2) Segmented Neutrophils % 69 % (35-66) Band Neutrophils % 20 % (0-9) Lymphocytes % 9 % (24-48) Monocytes % 1 % (0-10) Eosinophils % 1 % (0-5) Platelet Estimate Adequate (ADEQUATE) Large Platelets Present Sodium Level 146 mmol/L (136-145) Potassium Level 3.8 mmol/L (3.5-5.1) Chloride Level 104 mmol/L (98-107) Carbon Dioxide Level 38 mmol/L (21-32) Anion Gap 4 (6-14) Blood Urea Nitrogen 12 mg/dL (7-20) Creatinine 0.5 mg/dL (0.6-1.0) Estimated GFR (Cockcroft-Gault) 120.9 Glucose Level 126 mg/dL (70-99) Calcium Level 8.3 mg/dL (8.5-10.1) O2 Saturation 89 % (92-99) Arterial Blood pH 7.33 (7.35-7.45) Arterial Blood pCO2 at Patient Temp 73 mmHg (35-46) Arterial Blood pO2 at Patient Temp 58 mmHg (65-108) Arterial Blood HCO3 38 mmol/L (21-28) Arterial Blood Base Excess 9 mmol/L (-3-3) FiO2 30 Lactic Acid Level 1.0 mmol/L (0.4-2.0) Laboratory Tests Test 12/07/16 19:45 12/07/16 20:58 12/07/16 23:40 12/08/16 06:30 White Blood Count 10.4 x10^3/uL (4.0-11.0) Red Blood Count 4.69 x10^6/uL (3.50-5.40) Hemoglobin 13.2 g/dL (12.0-15.5) Hematocrit 40.1 % (36.0-47.0) Mean Corpuscular Volume 86 fL (79-100) Mean Corpuscular Hemoglobin 28 pg (25-35) Mean Corpuscular Hemoglobin Concent 33 g/dL (31-37) Red Cell Distribution Width 14.3 % (11.5-14.5) Platelet Count 315 x10^3/uL (140-400) Neutrophils (%) (Auto) 74 % (31-73) Lymphocytes (%) (Auto) 14 % (24-48) Monocytes (%) (Auto) 10 % (0-9) Eosinophils (%) (Auto) 2 % (0-3) Basophils (%) (Auto) 1 % (0-3) Neutrophils # (Auto) 7.7 x10^3uL (1.8-7.7) Lymphocytes # (Auto) 1.5 x10^3/uL (1.0-4.8) Monocytes # (Auto) 1.1 x10^3/uL (0.0-1.1) Eosinophils # (Auto) 0.2 x10^3/uL (0.0-0.7) Basophils # (Auto) 0.1 x10^3/uL (0.0-0.2) Sodium Level 144 mmol/L (136-145) Potassium Level 3.8 mmol/L (3.5-5.1) Chloride Level 101 mmol/L (98-107) Carbon Dioxide Level 40 mmol/L (21-32) Anion Gap 3 (6-14) Blood Urea Nitrogen 12 mg/dL (7-20) Creatinine 0.7 mg/dL (0.6-1.0) Estimated GFR (Cockcroft-Gault) 82.0 BUN/Creatinine Ratio 17 (6-20) Glucose Level 134 mg/dL (70-99) Lactic Acid Level 1.0 mmol/L (0.4-2.0) Calcium Level 8.6 mg/dL (8.5-10.1) Total Bilirubin 0.3 mg/dL (0.2-1.0) Aspartate Amino Transf (AST/SGOT) 14 U/L (15-37) Alanine Aminotransferase (ALT/SGPT) 21 U/L (14-59) Alkaline Phosphatase 74 U/L (46-116) Troponin I Quantitative < 0.017 ng/mL (0.000-0.055) Total Protein 6.8 g/dL (6.4-8.2) Albumin 2.8 g/dL (3.4-5.0) Albumin/Globulin Ratio 0.7 (1.0-1.7) Lipase 105 U/L (73-393) Urine Collection Type U cath Urine Color Yellow Urine Clarity Clear Urine pH 6.0 Urine Specific [place] >=1.030 Urine Protein Negative mg/dL (NEG-TRACE) Urine Glucose (UA) Negative mg/dL (NEG) Urine Ketones (Stick) Negative mg/dL (NEG) Urine Blood Large (NEG) Urine Nitrite Negative (NEG) Urine Bilirubin Negative (NEG) Urine Urobilinogen Dipstick 1.0 mg/dL (0.2 mg/dL) Urine Leukocyte Esterase Negative (NEG) Urine RBC >40 /HPF (0-2) Urine WBC 0 /HPF (0-4) Urine Squamous Epithelial Cells Occ /LPF Urine Transitional Epithelial Cells Occ /LPF Urine Bacteria 0 /HPF (0-FEW) Urine Mucus Slight /LPF O2 Saturation 94 % (92-99) Arterial Blood pH 7.31 (7.35-7.45) Arterial Blood pCO2 at Patient Temp 63 mmHg (35-46) Arterial Blood pO2 at Patient Temp 84 mmHg (65-108) Arterial Blood HCO3 31 mmol/L (21-28) Arterial Blood Base Excess 3 mmol/L (-3-3) FiO2 36.0 Influenza Type A Antigen Negative (NEGATIVE) Influenza Type B Antigen Negative (NEGATIVE) Test 12/08/16 07:40 12/08/16 08:00 12/08/16 11:55 White Blood Count 8.8 x10^3/uL (4.0-11.0) Red Blood Count 4.70 x10^6/uL (3.50-5.40) Hemoglobin 13.3 g/dL (12.0-15.5) Hematocrit 40.7 % (36.0-47.0) Mean Corpuscular Volume 87 fL (79-100) Mean Corpuscular Hemoglobin 28 pg (25-35) Mean Corpuscular Hemoglobin Concent 33 g/dL (31-37) Red Cell Distribution Width 14.5 % (11.5-14.5) Platelet Count 323 x10^3/uL (140-400) Neutrophils (%) (Auto) 87 % (31-73) Lymphocytes (%) (Auto) 8 % (24-48) Monocytes (%) (Auto) 4 % (0-9) Eosinophils (%) (Auto) 1 % (0-3) Basophils (%) (Auto) 0 % (0-3) Neutrophils # (Auto) 7.7 x10^3uL (1.8-7.7) Lymphocytes # (Auto) 0.7 x10^3/uL (1.0-4.8) Monocytes # (Auto) 0.3 x10^3/uL (0.0-1.1) Eosinophils # (Auto) 0.0 x10^3/uL (0.0-0.7) Basophils # (Auto) 0.0 x10^3/uL (0.0-0.2) Segmented Neutrophils % 69 % (35-66) Band Neutrophils % 20 % (0-9) Lymphocytes % 9 % (24-48) Monocytes % 1 % (0-10) Eosinophils % 1 % (0-5) Platelet Estimate Adequate (ADEQUATE) Large Platelets Present Sodium Level 146 mmol/L (136-145) Potassium Level 3.8 mmol/L (3.5-5.1) Chloride Level 104 mmol/L (98-107) Carbon Dioxide Level 38 mmol/L (21-32) Anion Gap 4 (6-14) Blood Urea Nitrogen 12 mg/dL (7-20) Creatinine 0.5 mg/dL (0.6-1.0) Estimated GFR (Cockcroft-Gault) 120.9 Glucose Level 126 mg/dL (70-99) Calcium Level 8.3 mg/dL (8.5-10.1) O2 Saturation 89 % (92-99) Arterial Blood pH 7.33 (7.35-7.45) Arterial Blood pCO2 at Patient Temp 73 mmHg (35-46) Arterial Blood pO2 at Patient Temp 58 mmHg (65-108) Arterial Blood HCO3 38 mmol/L (21-28) Arterial Blood Base Excess 9 mmol/L (-3-3) FiO2 30 Lactic Acid Level 1.0 mmol/L (0.4-2.0) Images Images IMPRESSION: 1. Bibasilar lung consolidation changes with air bronchograms likely pneumonia. Follow-up to resolution. 2. No evidence of central pulmonary embolism. 3. Patchy groundglass airspace opacities identified in the bilateral lungs likely atelectasis or pneumonitis. 4. Partially visualized enlarged left lobe of the thyroid gland. Assessment/Plan Assessment/Plan ACUTE CHRONIC HYPERCAPNEA RESP FAILURE AECOPD PNEUMONIA COVER FOR GRAM POS AND NEGATIVE BACTERIA POOJA/OHS METABOLIC AND TOXIC ENCE H.O COLOASOTMY SEC TO DIVERTICUALR PERFORATION BREAST CA S/P MAESTECTOMY NEGATIVE CT ANGIO NO PE PLAN BIPAP ABG NOTED WILL REPEAT LATER, NO NEED FOR INTUBATION AT THIS TIME ANTIBX STEROIDS DVT AND GI PROPH SEE ORDERS THANKS MELISSA GRIFFIN MD Dec 08, 2016 14:46
[2016-12-08 14:58] LABS: FIO2 ABG 30; PCO2 ABG 75 mmHg (35-46)
[2016-12-08 20:29] LABS: HCO3 ABG 32 mmol/L (21-28); PH ABG 7.33 (7.35-7.45); PO2 ABG 68 mmHg (65-108); SAT O2 ABG 92 % (92-99)
[2016-12-08 20:37] LABS: PCO2 ABG 62 mmHg (35-46)
[2016-12-08 20:38] LABS: FIO2 ABG 35
[2016-12-08] MEDS: ENOXAPARIN 40 MG/0.4 ML SYRINGE. SQ SCH (21:07)
[2016-12-08 22:57] LABS: HCO3 ABG 36 mmol/L (21-28); PO2 ABG 78 mmHg (65-108); SAT O2 ABG 95 % (92-99)
[2016-12-08 22:58] LABS: FIO2 ABG 32; PCO2 ABG 70 mmHg (35-46); PH ABG 7.33 (7.35-7.45)
[2016-12-09] VITALS (23 sets, daily range): BP systolic 85–145; BP diastolic 43–65
[2016-12-09] MEDS: IV NORMAL SALINE 1000ML BAG 1,000 ML IV SCH ×3 (01:10→21:25)
[2016-12-09 04:59] LABS: BASO % 0 % (0-3); EOS % 0 % (0-3); HEMATOCRIT 37.3 % (36.0-47.0); HEMOGLOBIN 11.8 g/dL (12.0-15.5); LYMPH # 0.9 x10^3/uL (1.0-4.8); LYMPH % 9 % (24-48); MEAN CORPUSCULAR HEMOGLOBIN 28 pg (25-35); MEAN CORPUSCULAR HGB CONC 32 g/dL (31-37); MEAN CORPUSCULAR VOLUME 88 fL (79-100); MONO % 3 % (0-9); NEUT % 88 % (31-73); PLATELET COUNT 325 x10^3/uL (140-400); RED BLOOD COUNT 4.24 x10^6/uL (3.50-5.40); RED CELL DISTRIBUTION WIDTH 14.5 % (11.5-14.5); WHITE BLOOD COUNT 9.9 x10^3/uL (4.0-11.0)
[2016-12-09 05:06] LABS: CALCIUM 8.1 mg/dL (8.5-10.1); CREATININE 0.5 mg/dL (0.6-1.0); GFR 120.9; POTASSIUM 4.7 mmol/L (3.5-5.1)
[2016-12-09] MEDS: CEFEPIME HCL 1 GM in IV NORMAL SALINE 50ML 50 ML IV SCH ×3 (06:07→21:21)
[2016-12-09] MEDS: methylPREDNISolone SOD SUCC PF 125 MG/2 ML VIAL. IV SCH ×3 (06:08→21:21)
[2016-12-09] MEDS: IPRATRPIUM/ALBUTEROL 0.5/2.5MG 3 ML NEBU. NEB SCH ×4 (07:07→19:49)
[2016-12-09] MEDS: CARVEDILOL 3.125 MG TABLET. PO SCH ×2 (08:00→17:00)
[2016-12-09 08:18] LABS: HCO3 ABG 36 mmol/L (21-28); PH ABG 7.29 (7.35-7.45); PO2 ABG 54 mmHg (65-108); SAT O2 ABG 85 % (92-99)
[2016-12-09 08:37] LABS: FIO2 ABG 35; PCO2 ABG 76 mmHg (35-46)
[2016-12-09] MEDS: ENOXAPARIN 40 MG/0.4 ML SYRINGE. SQ SCH ×2 (08:57→21:22)
[2016-12-09] MEDS: FUROSEMIDE 20 MG TABLET PO SCH (08:58)
[2016-12-09] MEDS: POTASSIUM CHLORIDE 20 MEQ TABLET.ER. PO SCH ×2 (08:58→17:22)
[2016-12-09] MEDS: DULoxetine HCL 30 MG CAPSULE.DR PO SCH (08:58)
--- NOTE | 2016-12-09 09:40 | RAD ---
Indication respiratory failure. A single view of the chest was obtained. Comparison is made to a study 2 days previously. Note is made of a CT examination of the chest 12/07/2016. Heart size is unchanged. There is no gross congestive heart failure. Aeration of the lung bases has improved slightly. A new finding is not seen. Chronic changes are noted about the shoulders. IMPRESSION: Slight interval improvement. No new finding seen
[2016-12-09] MEDS: VANCOMYCIN PER PHARMACY MC PRN (10:25)
--- NOTE | 2016-12-09 10:25 | PDOC ---
PROGRESS NOTES Subjective Subjective transferred to ICU for respiratory failure,placed on BIPAP Objective Objective Vital Signs Date Time Temp Pulse Resp B/P (MAP) Pulse Ox O2 Delivery O2 Flow Rate FiO2 12/09/16 10:10 87 26 131/51 (77) 97 BiPAP/CPAP 12/09/16 09:00 97.9 97.9 12/09/16 08:29 2.0 Intake and Output 12/09/16 07:00 Intake Total 2140 ml Balance 2140 ml Intake Oral 650 ml IV Total 1490 ml # Voids 2 # Bowel Movements 1 Physical Exam Abdomen: Normal bowel sounds, Soft, No tenderness Heart: Regular rate, Normal S1, Normal S2 Extremities: No clubbing, No cyanosis HEENT: EOMI Lungs: Other (linda wheezing) MUSCULOSKELETAL: No deformity, Osteoarthritic changes both hands Neuro: Other (ON BIAPA FOLLOW COMMMANDS) Skin: No rashes, No breakdown COMMENT BIPAP Diagnosis Problem List Problems Medical Problems: (1) Pneumonia Status: Acute Assessment Assessment Problems Medical Problems: (1) Pneumonia Status: Acute Assessment 1.Acute resp failure with hypoxia and hypercapnia. 2.Health care associated Pneumonia. 3.Encephalopathy due to resp failure 4.Ch COPD 5.CAD stable 6.Left mastectomy for breast ca 7. H/o Colostomy for diverticular perforation Plan Plan TPN after Picc line insertion BIPAP. Pulmonary consult appreciated. Vanco+cefepime. IV steroids Oxygen. DVT prevention moved to ICU. critical care less than 30 mts . For more details regarding further plans, please refer to the orders. Problems: Plan Plan of Care Problems Medical Problems: (1) Pneumonia Status: Acute Comment Review of Relevant I have reviewed the following items rivas (where applicable) has been applied. Labs Laboratory Tests Test 12/08/16 11:55 12/08/16 12:14 12/08/16 20:25 12/08/16 22:45 Lactic Acid Level 1.0 mmol/L (0.4-2.0) O2 Saturation 91 % (92-99) 92 % (92-99) 95 % (92-99) Arterial Blood pH 7.32 (7.35-7.45) 7.33 (7.35-7.45) 7.33 (7.35-7.45) Arterial Blood pCO2 at Patient Temp 75 mmHg (35-46) 62 mmHg (35-46) 70 mmHg (35-46) Arterial Blood pO2 at Patient Temp 63 mmHg (65-108) 68 mmHg (65-108) 78 mmHg (65-108) Arterial Blood HCO3 38 mmol/L (21-28) 32 mmol/L (21-28) 36 mmol/L (21-28) Arterial Blood Base Excess 9 mmol/L (-3-3) 4 mmol/L (-3-3) 8 mmol/L (-3-3) FiO2 30 35 32 Test 12/09/16 04:15 12/09/16 08:00 12/09/16 09:36 White Blood Count 9.9 x10^3/uL (4.0-11.0) Red Blood Count 4.24 x10^6/uL (3.50-5.40) Hemoglobin 11.8 g/dL (12.0-15.5) Hematocrit 37.3 % (36.0-47.0) Mean Corpuscular Volume 88 fL (79-100) Mean Corpuscular Hemoglobin 28 pg (25-35) Mean Corpuscular Hemoglobin Concent 32 g/dL (31-37) Red Cell Distribution Width 14.5 % (11.5-14.5) Platelet Count 325 x10^3/uL (140-400) Neutrophils (%) (Auto) 88 % (31-73) Lymphocytes (%) (Auto) 9 % (24-48) Monocytes (%) (Auto) 3 % (0-9) Eosinophils (%) (Auto) 0 % (0-3) Basophils (%) (Auto) 0 % (0-3) Neutrophils # (Auto) 8.8 x10^3uL (1.8-7.7) Lymphocytes # (Auto) 0.9 x10^3/uL (1.0-4.8) Monocytes # (Auto) 0.3 x10^3/uL (0.0-1.1) Eosinophils # (Auto) 0.0 x10^3/uL (0.0-0.7) Basophils # (Auto) 0.0 x10^3/uL (0.0-0.2) Sodium Level 147 mmol/L (136-145) Potassium Level 4.7 mmol/L (3.5-5.1) Chloride Level 107 mmol/L (98-107) Carbon Dioxide Level 37 mmol/L (21-32) Anion Gap 3 (6-14) Blood Urea Nitrogen 17 mg/dL (7-20) Creatinine 0.5 mg/dL (0.6-1.0) Estimated GFR (Cockcroft-Gault) 120.9 Glucose Level 147 mg/dL (70-99) Calcium Level 8.1 mg/dL (8.5-10.1) O2 Saturation 85 % (92-99) Arterial Blood pH 7.29 (7.35-7.45) Arterial Blood pCO2 at Patient Temp 76 mmHg (35-46) Arterial Blood pO2 at Patient Temp 54 mmHg (65-108) Arterial Blood HCO3 36 mmol/L (21-28) Arterial Blood Base Excess 7 mmol/L (-3-3) FiO2 35 Vancomycin Level Trough 14.2 mcg/mL (10.0-20.0) Vancomycin Last Dose Date 12/08/16 Vancomycin Last Dose Time 2200 Microbiology 12/07/16 Blood Culture - Preliminary, Resulted NO GROWTH AFTER 1 DAY 12/08/16 Gram Stain - Final, Complete Medications Current Medications Enoxaparin Sodium (Lovenox 40mg Syringe) 40 mg BID SQ Last administered on t 08:57; Start 12/08/16 at 21:00 Vancomycin HCl 1 each 1X ONCE MC ; Start 12/09/16 at 09:30; Stop 12/09/16 at 09: 31; Status DC Vitals/I & O Vital Sign - Last 24 Hours 12/08/16 12/08/16 12/08/16 12/08/16 11:00 11:00 11:20 12:00 Temp 99.1 99.1 Pulse 86 82 Resp 20 20 B/P (MAP) 140/59 (86) 118/56 (76) Pulse Ox 90 97 94 O2 Delivery BiPAP/CPAP Bi-pap BiPAP/CPAP BiPAP/CPAP 12/08/16 12/08/16 12/08/16 12/08/16 12:56 13:00 14:00 15:00 Pulse 86 78 78 Resp 22 20 22 B/P (MAP) 117/60 (79) 115/74 (88) 129/52 (77) Pulse Ox 94 94 97 97 O2 Delivery BiPAP/CPAP BiPAP/CPAP BiPAP/CPAP BiPAP/CPAP 12/08/16 12/08/16 12/08/163/17 15:19 16:00 17:02 17:03 Pulse 82 85 Resp 22 B/P (MAP) 144/57 (86) 144/57 Pulse Ox 96 93 96 O2 Delivery BiPAP/CPAP BiPAP/CPAP BiPAP/CPAP 12/08/16 12/08/16 12/08/16 12/08/16 17:04 18:11 19:00 19:30 Temp 98.6 98.6 Pulse 89 87 85 Resp 24 24 B/P (MAP) 120/61 (80) 112/49 (70) 112/59 (76) Pulse Ox 94 92 96 95 O2 Delivery BiPAP/CPAP BiPAP/CPAP BiPAP/CPAP BiPAP/CPAP 12/08/16 12/08/16 12/08/16 12/08/16 19:47 20:00 21:00 22:00 Temp 98.6 97.6 98.2 98.6 97.6 98.2 Pulse 86 86 94 Resp 24 16 18 B/P (MAP) 134/64 (87) 147/58 (87) 133/54 (80) Pulse Ox 92 92 O2 Delivery Bi-pap BiPAP/CPAP Nasal Cannula Nasal Cannula O2 Flow Rate 3.0 3.0 12/08/16 12/08/16 12/09/16 12/09/16 23:00 23:00 00:01 01:00 Temp 98.0 98.0 97.8 98.0 98.0 97.8 Pulse 80 82 86 Resp 22 B/P (MAP) 137/59 (85) 128/50 (76) 138/47 (77) Pulse Ox 96 95 93 93 O2 Delivery BiPAP/CPAP BiPAP/CPAP BiPAP/CPAP BiPAP/CPAP 12/09/16 12/09/16 12/09/16 12/09/16 01:15 02:00 03:00 04:00 Temp 98.0 97.8 98.0 98.0 97.8 98.0 Pulse 94 92 80 Resp 18 18 16 B/P (MAP) 123/47 (72) 115/54 (74) 112/58 (76) Pulse Ox 97 89 92 92 O2 Delivery BiPAP/CPAP BiPAP/CPAP Nasal Cannula O2 Flow Rate 2.0 2.0 12/09/16 12/09/16 12/09/16 12/09/16 05:00 06:00 07:00 07:07 Temp 98.4 97.8 98.4 97.8 Pulse 81 88 78 Resp 16 20 18 B/P (MAP) 108/63 (78) 115/61 (79) 85/43 (57) Pulse Ox 2 96 96 96 O2 Delivery Nasal Cannula BiPAP/CPAP BiPAP/CPAP BiPAP/CPAP 12/09/16 12/09/16 12/09/16 12/09/16 08:00 08:00 08:29 08:58 Pulse 97 88 Resp 20 B/P (MAP) 100/54 100/54 (69) Pulse Ox 94 96 O2 Delivery BiPAP/CPAP Bi-pap BiPAP/CPAP O2 Flow Rate 2.0 12/09/16 12/09/16 09:00 10:10 Temp 97.9 97.9 Pulse 94 87 Resp 22 26 B/P (MAP) 96/65 (75) 131/51 (77) Pulse Ox 97 97 O2 Delivery BiPAP/CPAP BiPAP/CPAP Intake and Output 12/08/16 12/08/16 12/09/16 15:00 23:00 07:00 Intake Total 0 ml 2140 ml Balance 0 ml 2140 ml YUE WYMAN MD Dec 09, 2016 10:25
[2016-12-09] MEDS: VANCOMYCIN 1.75 GM in IV NORMAL SALINE 500ML BAG 500 ML IV SCH ×2 (10:26→21:21)
[2016-12-09] MEDS ORDERED: AMINO AC 3%/ELECTROLYTE/GLYCER 1,000 ML IV SCH (10:30)
[2016-12-09 14:03] LABS: MAGNESIUM 2.1 mg/dL (1.8-2.4); PHOSPHORUS 3.7 mg/dL (2.6-4.7)
[2016-12-09] MEDS: TPN PER PHARMACY MC PRN (14:40)
[2016-12-09 16:32] LABS: HCO3 ABG 35 mmol/L (21-28); PH ABG 7.34 (7.35-7.45); PO2 ABG 75 mmHg (65-108); SAT O2 ABG 94 % (92-99)
--- NOTE | 2016-12-09 17:01 | PDOC ---
PULMONARY PROGRESS NOTES Subjective PT ON BIPAP FOLLOW COMMANDS Vitals Vital Signs Date Time Temp Pulse Resp B/P (MAP) Pulse Ox O2 Delivery O2 Flow Rate FiO2 12/09/16 15:58 Venturi Mask 9.0 12/09/16 15:10 84 28 125/55 (78) 100 12/09/16 09:00 97.9 97.9 ROS: No Nausea, No Chest Pain, No Abdominal Pain, No Increase Cough General: Alert Lungs: Clear, Crackles Cardiovascular: S1 Abdomen: Soft Neuro Exam: Alert Extremities: No Edema Labs Laboratory Tests Test 12/07/16 19:45 12/07/16 20:58 12/07/16 23:40 12/08/16 00:50 White Blood Count 10.4 x10^3/uL (4.0-11.0) Red Blood Count 4.69 x10^6/uL (3.50-5.40) Hemoglobin 13.2 g/dL (12.0-15.5) Hematocrit 40.1 % (36.0-47.0) Mean Corpuscular Volume 86 fL (79-100) Mean Corpuscular Hemoglobin 28 pg (25-35) Mean Corpuscular Hemoglobin Concent 33 g/dL (31-37) Red Cell Distribution Width 14.3 % (11.5-14.5) Platelet Count 315 x10^3/uL (140-400) Neutrophils (%) (Auto) 74 % (31-73) Lymphocytes (%) (Auto) 14 % (24-48) Monocytes (%) (Auto) 10 % (0-9) Eosinophils (%) (Auto) 2 % (0-3) Basophils (%) (Auto) 1 % (0-3) Neutrophils # (Auto) 7.7 x10^3uL (1.8-7.7) Lymphocytes # (Auto) 1.5 x10^3/uL (1.0-4.8) Monocytes # (Auto) 1.1 x10^3/uL (0.0-1.1) Eosinophils # (Auto) 0.2 x10^3/uL (0.0-0.7) Basophils # (Auto) 0.1 x10^3/uL (0.0-0.2) Sodium Level 144 mmol/L (136-145) Potassium Level 3.8 mmol/L (3.5-5.1) Chloride Level 101 mmol/L (98-107) Carbon Dioxide Level 40 mmol/L (21-32) Anion Gap 3 (6-14) Blood Urea Nitrogen 12 mg/dL (7-20) Creatinine 0.7 mg/dL (0.6-1.0) Estimated GFR (Cockcroft-Gault) 82.0 BUN/Creatinine Ratio 17 (6-20) Glucose Level 134 mg/dL (70-99) Lactic Acid Level 1.0 mmol/L (0.4-2.0) Calcium Level 8.6 mg/dL (8.5-10.1) Total Bilirubin 0.3 mg/dL (0.2-1.0) Aspartate Amino Transf (AST/SGOT) 14 U/L (15-37) Alanine Aminotransferase (ALT/SGPT) 21 U/L (14-59) Alkaline Phosphatase 74 U/L (46-116) Troponin I Quantitative < 0.017 ng/mL (0.000-0.055) Total Protein 6.8 g/dL (6.4-8.2) Albumin 2.8 g/dL (3.4-5.0) Albumin/Globulin Ratio 0.7 (1.0-1.7) Lipase 105 U/L (73-393) Urine Collection Type U cath Urine Color Yellow Urine Clarity Clear Urine pH 6.0 Urine Specific [place] >=1.030 Urine Protein Negative mg/dL (NEG-TRACE) Urine Glucose (UA) Negative mg/dL (NEG) Urine Ketones (Stick) Negative mg/dL (NEG) Urine Blood Large (NEG) Urine Nitrite Negative (NEG) Urine Bilirubin Negative (NEG) Urine Urobilinogen Dipstick 1.0 mg/dL (0.2 mg/dL) Urine Leukocyte Esterase Negative (NEG) Urine RBC >40 /HPF (0-2) Urine WBC 0 /HPF (0-4) Urine Squamous Epithelial Cells Occ /LPF Urine Transitional Epithelial Cells Occ /LPF Urine Bacteria 0 /HPF (0-FEW) Urine Mucus Slight /LPF O2 Saturation 94 % (92-99) Arterial Blood pH 7.31 (7.35-7.45) Arterial Blood pCO2 at Patient Temp 63 mmHg (35-46) Arterial Blood pO2 at Patient Temp 84 mmHg (65-108) Arterial Blood HCO3 31 mmol/L (21-28) Arterial Blood Base Excess 3 mmol/L (-3-3) FiO2 36.0 Nasal Screen MRSA (PCR) Negative (Negative) Test 12/08/16 06:30 12/08/16 07:40 12/08/16 08:00 12/08/16 11:55 Influenza Type A Antigen Negative (NEGATIVE) Influenza Type B Antigen Negative (NEGATIVE) White Blood Count 8.8 x10^3/uL (4.0-11.0) Red Blood Count 4.70 x10^6/uL (3.50-5.40) Hemoglobin 13.3 g/dL (12.0-15.5) Hematocrit 40.7 % (36.0-47.0) Mean Corpuscular Volume 87 fL (79-100) Mean Corpuscular Hemoglobin 28 pg (25-35) Mean Corpuscular Hemoglobin Concent 33 g/dL (31-37) Red Cell Distribution Width 14.5 % (11.5-14.5) Platelet Count 323 x10^3/uL (140-400) Neutrophils (%) (Auto) 87 % (31-73) Lymphocytes (%) (Auto) 8 % (24-48) Monocytes (%) (Auto) 4 % (0-9) Eosinophils (%) (Auto) 1 % (0-3) Basophils (%) (Auto) 0 % (0-3) Neutrophils # (Auto) 7.7 x10^3uL (1.8-7.7) Lymphocytes # (Auto) 0.7 x10^3/uL (1.0-4.8) Monocytes # (Auto) 0.3 x10^3/uL (0.0-1.1) Eosinophils # (Auto) 0.0 x10^3/uL (0.0-0.7) Basophils # (Auto) 0.0 x10^3/uL (0.0-0.2) Segmented Neutrophils % 69 % (35-66) Band Neutrophils % 20 % (0-9) Lymphocytes % 9 % (24-48) Monocytes % 1 % (0-10) Eosinophils % 1 % (0-5) Platelet Estimate Adequate (ADEQUATE) Large Platelets Present Sodium Level 146 mmol/L (136-145) Potassium Level 3.8 mmol/L (3.5-5.1) Chloride Level 104 mmol/L (98-107) Carbon Dioxide Level 38 mmol/L (21-32) Anion Gap 4 (6-14) Blood Urea Nitrogen 12 mg/dL (7-20) Creatinine 0.5 mg/dL (0.6-1.0) Estimated GFR (Cockcroft-Gault) 120.9 Glucose Level 126 mg/dL (70-99) Calcium Level 8.3 mg/dL (8.5-10.1) O2 Saturation 89 % (92-99) Arterial Blood pH 7.33 (7.35-7.45) Arterial Blood pCO2 at Patient Temp 73 mmHg (35-46) Arterial Blood pO2 at Patient Temp 58 mmHg (65-108) Arterial Blood HCO3 38 mmol/L (21-28) Arterial Blood Base Excess 9 mmol/L (-3-3) FiO2 30 Lactic Acid Level 1.0 mmol/L (0.4-2.0) Test 12/08/16 12:14 12/08/16 20:25 12/08/16 22:45 12/09/16 04:15 O2 Saturation 91 % (92-99) 92 % (92-99) 95 % (92-99) Arterial Blood pH 7.32 (7.35-7.45) 7.33 (7.35-7.45) 7.33 (7.35-7.45) Arterial Blood pCO2 at Patient Temp 75 mmHg (35-46) 62 mmHg (35-46) 70 mmHg (35-46) Arterial Blood pO2 at Patient Temp 63 mmHg (65-108) 68 mmHg (65-108) 78 mmHg (65-108) Arterial Blood HCO3 38 mmol/L (21-28) 32 mmol/L (21-28) 36 mmol/L (21-28) Arterial Blood Base Excess 9 mmol/L (-3-3) 4 mmol/L (-3-3) 8 mmol/L (-3-3) FiO2 30 35 32 White Blood Count 9.9 x10^3/uL (4.0-11.0) Red Blood Count 4.24 x10^6/uL (3.50-5.40) Hemoglobin 11.8 g/dL (12.0-15.5) Hematocrit 37.3 % (36.0-47.0) Mean Corpuscular Volume 88 fL (79-100) Mean Corpuscular Hemoglobin 28 pg (25-35) Mean Corpuscular Hemoglobin Concent 32 g/dL (31-37) Red Cell Distribution Width 14.5 % (11.5-14.5) Platelet Count 325 x10^3/uL (140-400) Neutrophils (%) (Auto) 88 % (31-73) Lymphocytes (%) (Auto) 9 % (24-48) Monocytes (%) (Auto) 3 % (0-9) Eosinophils (%) (Auto) 0 % (0-3) Basophils (%) (Auto) 0 % (0-3) Neutrophils # (Auto) 8.8 x10^3uL (1.8-7.7) Lymphocytes # (Auto) 0.9 x10^3/uL (1.0-4.8) Monocytes # (Auto) 0.3 x10^3/uL (0.0-1.1) Eosinophils # (Auto) 0.0 x10^3/uL (0.0-0.7) Basophils # (Auto) 0.0 x10^3/uL (0.0-0.2) Sodium Level 147 mmol/L (136-145) Potassium Level 4.7 mmol/L (3.5-5.1) Chloride Level 107 mmol/L (98-107) Carbon Dioxide Level 37 mmol/L (21-32) Anion Gap 3 (6-14) Blood Urea Nitrogen 17 mg/dL (7-20) Creatinine 0.5 mg/dL (0.6-1.0) Estimated GFR (Cockcroft-Gault) 120.9 Glucose Level 147 mg/dL (70-99) Calcium Level 8.1 mg/dL (8.5-10.1) Phosphorus Level 3.7 mg/dL (2.6-4.7) Magnesium Level 2.1 mg/dL (1.8-2.4) Test 12/09/16 08:00 12/09/16 09:36 O2 Saturation 85 % (92-99) Arterial Blood pH 7.29 (7.35-7.45) Arterial Blood pCO2 at Patient Temp 76 mmHg (35-46) Arterial Blood pO2 at Patient Temp 54 mmHg (65-108) Arterial Blood HCO3 36 mmol/L (21-28) Arterial Blood Base Excess 7 mmol/L (-3-3) FiO2 35 Vancomycin Level Trough 14.2 mcg/mL (10.0-20.0) Vancomycin Last Dose Date 12/08/16 Vancomycin Last Dose Time 2200 Laboratory Tests Test 12/08/16 20:25 12/08/16 22:45 12/09/16 04:15 12/09/16 08:00 O2 Saturation 92 % (92-99) 95 % (92-99) 85 % (92-99) Arterial Blood pH 7.33 (7.35-7.45) 7.33 (7.35-7.45) 7.29 (7.35-7.45) Arterial Blood pCO2 at Patient Temp 62 mmHg (35-46) 70 mmHg (35-46) 76 mmHg (35-46) Arterial Blood pO2 at Patient Temp 68 mmHg (65-108) 78 mmHg (65-108) 54 mmHg (65-108) Arterial Blood HCO3 32 mmol/L (21-28) 36 mmol/L (21-28) 36 mmol/L (21-28) Arterial Blood Base Excess 4 mmol/L (-3-3) 8 mmol/L (-3-3) 7 mmol/L (-3-3) FiO2 35 32 35 White Blood Count 9.9 x10^3/uL (4.0-11.0) Red Blood Count 4.24 x10^6/uL (3.50-5.40) Hemoglobin 11.8 g/dL (12.0-15.5) Hematocrit 37.3 % (36.0-47.0) Mean Corpuscular Volume 88 fL (79-100) Mean Corpuscular Hemoglobin 28 pg (25-35) Mean Corpuscular Hemoglobin Concent 32 g/dL (31-37) Red Cell Distribution Width 14.5 % (11.5-14.5) Platelet Count 325 x10^3/uL (140-400) Neutrophils (%) (Auto) 88 % (31-73) Lymphocytes (%) (Auto) 9 % (24-48) Monocytes (%) (Auto) 3 % (0-9) Eosinophils (%) (Auto) 0 % (0-3) Basophils (%) (Auto) 0 % (0-3) Neutrophils # (Auto) 8.8 x10^3uL (1.8-7.7) Lymphocytes # (Auto) 0.9 x10^3/uL (1.0-4.8) Monocytes # (Auto) 0.3 x10^3/uL (0.0-1.1) Eosinophils # (Auto) 0.0 x10^3/uL (0.0-0.7) Basophils # (Auto) 0.0 x10^3/uL (0.0-0.2) Sodium Level 147 mmol/L (136-145) Potassium Level 4.7 mmol/L (3.5-5.1) Chloride Level 107 mmol/L (98-107) Carbon Dioxide Level 37 mmol/L (21-32) Anion Gap 3 (6-14) Blood Urea Nitrogen 17 mg/dL (7-20) Creatinine 0.5 mg/dL (0.6-1.0) Estimated GFR (Cockcroft-Gault) 120.9 Glucose Level 147 mg/dL (70-99) Calcium Level 8.1 mg/dL (8.5-10.1) Phosphorus Level 3.7 mg/dL (2.6-4.7) Magnesium Level 2.1 mg/dL (1.8-2.4) Test 12/09/16 09:36 Vancomycin Level Trough 14.2 mcg/mL (10.0-20.0) Vancomycin Last Dose Date 12/08/16 Vancomycin Last Dose Time 2200 Medications Active Scripts Medications Dose Route/Sig Max Daily Dose Days Date Category Prednisone 20 Mg Tablet 50 Mg PO DAILY 5 07/09/16 Rx Diazepam 5 Mg Tablet 5 Mg PO HS 07/06/16 Reported Simvastatin 5 Mg Tablet 5 Mg PO HS 07/06/16 Reported Pepcid (Famotidine) 20 Mg Tablet 20 Mg PO HS 07/06/16 Reported Cymbalta (Duloxetine Hcl) 60 Mg Capsule.dr 60 Mg PO DAILY 07/06/16 Reported Carvedilol 3.125 Mg Tablet 1 Tab PO BID 07/06/16 Reported Klor-Con M20 (Potassium Chloride) 20 Meq Tab.er.prt 20 Meq PO BID 07/06/16 Reported Furosemide 20 Mg Tablet 20 Mg PO DAILY 07/06/16 Reported Comments IMPRESSION: Slight interval improvement. No new finding seen CXR 12/09 Impression . 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 ABG NOTED WILL D/C BIPAP PT AWAKE AND ALERT REPEAT ABG NOTED CO2 DOWN WILL REPEAT ABG AT 8 PM ANTIBX STEROIDS DVT AND GI PROPH SEE ORDERS MELISSA GRIFFIN MD Dec 09, 2016 17:01
[2016-12-09 17:34] LABS: PCO2 ABG 66 mmHg (35-46)
[2016-12-09 17:35] LABS: FIO2 ABG 35
[2016-12-09 20:12] LABS: HCO3 ABG 30 mmol/L (21-28); PCO2 ABG 50 mmHg (35-46); PO2 ABG 59 mmHg (65-108); SAT O2 ABG 91 % (92-99)
[2016-12-09 20:21] LABS: FIO2 ABG 28
--- NOTE | 2016-12-09 20:27 | RAD ---
Indication assess PICC line placement. A single view of the chest was obtained. Note is made of a CT examination of the chest two days ago. No prior plain film imaging of the chest is available. There is mild enlargement of the cardiac silhouette. There may be mild pulmonary vascular congestion. Mild volume loss at the right lung base likely reflects atelectasis although underlying pneumonia is not entirely excluded. Significant pleural fluid in either lung is not seen. There is no pneumothorax. There are degenerative changes about the shoulders. A left PICC line is noted and has its tip appropriately positioned in the mid SVC. IMPRESSION: Appropriately positioned left PICC line. Moderate cardiomegaly. Suspect mild pulmonary vascular congestion. Modest volume loss in the right mid-lower lung field may reflect atelectasis. Underlying pneumonia not entirely excluded. Electronically signed by: Aric Doe MD (12/09/2016 8:23 PM)
[2016-12-09] MEDS: diazePAM 5 MG TABLET PO SCH (21:00)
[2016-12-09] MEDS: FAMOTIDINE 20 MG TABLET. PO SCH (21:21)
[2016-12-09] MEDS: SIMVASTATIN 10 MG TABLET PO SCH (21:22)
[2016-12-09] MEDS ORDERED: TOTAL PARENTERAL NUTRITION IV SCH ×10 (22:00)
[2016-12-09] MEDS ORDERED: [UNRECOGNIZED DRUG - OTHER] IV SCH ×10 (22:00)
[2016-12-09] MEDS ORDERED: DEXTROSE 70% IV SCH ×10 (22:00)
[2016-12-09] MEDS ORDERED: AMINO ACIDS IV SCH ×10 (22:00)
[2016-12-10] VITALS (24 sets, daily range): BP systolic 96–140; BP diastolic 46–93
[2016-12-10] MEDS: CEFEPIME HCL 1 GM in IV NORMAL SALINE 50ML 50 ML IV SCH ×3 (05:34→21:33)
[2016-12-10] MEDS: methylPREDNISolone SOD SUCC PF 125 MG/2 ML VIAL. IV SCH ×3 (05:34→22:40)
[2016-12-10 06:25] LABS: CALCIUM 8.7 mg/dL (8.5-10.1); CREATININE 0.5 mg/dL (0.6-1.0); GFR 120.9; MAGNESIUM 2.4 mg/dL (1.8-2.4); PHOSPHORUS 2.7 mg/dL (2.6-4.7); POTASSIUM 4.5 mmol/L (3.5-5.1)
[2016-12-10] MEDS: CARVEDILOL 3.125 MG TABLET. PO SCH ×2 (08:00→18:22)
[2016-12-10] MEDS: IPRATRPIUM/ALBUTEROL 0.5/2.5MG 3 ML NEBU. NEB SCH ×4 (08:07→20:13)
[2016-12-10 08:16] LABS: HCO3 ABG 31 mmol/L (21-28); PCO2 ABG 56 mmHg (35-46); PH ABG 7.37 (7.35-7.45); PO2 ABG 80 mmHg (65-108); SAT O2 ABG 95 % (92-99)
--- NOTE | 2016-12-10 09:28 | RAD ---
Portable chest, 12/10/2016: History: Respiratory failure Comparison is made to yesterday's study. A left PICC remains in place extending into the superior vena cava. The heart is mildly enlarged. The pulmonary vascularity is at the upper limits of normal. There are mild bilateral perihilar and infrahilar opacities compatible with atelectasis/infiltrate. A similar appearance was present on the previous study. No pleural fluid is seen. There is no evidence of pneumothorax. IMPRESSION: 1. Mild cardiomegaly. 2. Mild ongoing bilateral infrahilar atelectasis and/or pneumonitis.
[2016-12-10] MEDS: DULoxetine HCL 30 MG CAPSULE.DR PO SCH (09:50)
[2016-12-10] MEDS: VANCOMYCIN 1.75 GM in IV NORMAL SALINE 500ML BAG 500 ML IV SCH ×2 (09:50→22:40)
[2016-12-10] MEDS: POTASSIUM CHLORIDE 20 MEQ TABLET.ER. PO SCH ×2 (09:50→18:21)
[2016-12-10] MEDS: FUROSEMIDE 20 MG TABLET PO SCH (09:50)
[2016-12-10] MEDS: ENOXAPARIN 40 MG/0.4 ML SYRINGE. SQ SCH ×2 (09:50→21:32)
[2016-12-10] MEDS: VANCOMYCIN PER PHARMACY MC PRN (09:59)
[2016-12-10] MEDS: TPN PER PHARMACY MC PRN (13:22)
--- NOTE | 2016-12-10 15:25 | PDOC ---
PULMONARY PROGRESS NOTES Subjective OFF BIPAP ON 2 LITER NO COMPLAINTS Vitals Vital Signs Date Time Temp Pulse Resp B/P (MAP) Pulse Ox O2 Delivery O2 Flow Rate FiO2 12/10/16 15:11 84 20 126/53 (77) 95 Nasal Cannula 2.0 12/10/16 12:00 98.0 98.0 ROS: No Nausea, No Chest Pain, No Abdominal Pain, No Increase Cough General: Alert Lungs: Clear Cardiovascular: S1 Abdomen: Soft Neuro Exam: Alert Extremities: No Edema Labs Laboratory Tests Test 12/08/16 20:25 12/08/16 22:45 12/09/16 04:15 12/09/16 08:00 O2 Saturation 92 % (92-99) 95 % (92-99) 85 % (92-99) Arterial Blood pH 7.33 (7.35-7.45) 7.33 (7.35-7.45) 7.29 (7.35-7.45) Arterial Blood pCO2 at Patient Temp 62 mmHg (35-46) 70 mmHg (35-46) 76 mmHg (35-46) Arterial Blood pO2 at Patient Temp 68 mmHg (65-108) 78 mmHg (65-108) 54 mmHg (65-108) Arterial Blood HCO3 32 mmol/L (21-28) 36 mmol/L (21-28) 36 mmol/L (21-28) Arterial Blood Base Excess 4 mmol/L (-3-3) 8 mmol/L (-3-3) 7 mmol/L (-3-3) FiO2 35 32 35 White Blood Count 9.9 x10^3/uL (4.0-11.0) Red Blood Count 4.24 x10^6/uL (3.50-5.40) Hemoglobin 11.8 g/dL (12.0-15.5) Hematocrit 37.3 % (36.0-47.0) Mean Corpuscular Volume 88 fL (79-100) Mean Corpuscular Hemoglobin 28 pg (25-35) Mean Corpuscular Hemoglobin Concent 32 g/dL (31-37) Red Cell Distribution Width 14.5 % (11.5-14.5) Platelet Count 325 x10^3/uL (140-400) Neutrophils (%) (Auto) 88 % (31-73) Lymphocytes (%) (Auto) 9 % (24-48) Monocytes (%) (Auto) 3 % (0-9) Eosinophils (%) (Auto) 0 % (0-3) Basophils (%) (Auto) 0 % (0-3) Neutrophils # (Auto) 8.8 x10^3uL (1.8-7.7) Lymphocytes # (Auto) 0.9 x10^3/uL (1.0-4.8) Monocytes # (Auto) 0.3 x10^3/uL (0.0-1.1) Eosinophils # (Auto) 0.0 x10^3/uL (0.0-0.7) Basophils # (Auto) 0.0 x10^3/uL (0.0-0.2) Sodium Level 147 mmol/L (136-145) Potassium Level 4.7 mmol/L (3.5-5.1) Chloride Level 107 mmol/L (98-107) Carbon Dioxide Level 37 mmol/L (21-32) Anion Gap 3 (6-14) Blood Urea Nitrogen 17 mg/dL (7-20) Creatinine 0.5 mg/dL (0.6-1.0) Estimated GFR (Cockcroft-Gault) 120.9 Glucose Level 147 mg/dL (70-99) Calcium Level 8.1 mg/dL (8.5-10.1) Phosphorus Level 3.7 mg/dL (2.6-4.7) Magnesium Level 2.1 mg/dL (1.8-2.4) Test 12/09/16 09:36 12/09/16 15:52 12/09/16 20:10 12/10/16 05:30 Vancomycin Level Trough 14.2 mcg/mL (10.0-20.0) Vancomycin Last Dose Date 12/08/16 Vancomycin Last Dose Time 2200 O2 Saturation 94 % (92-99) 91 % (92-99) Arterial Blood pH 7.34 (7.35-7.45) 7.40 (7.35-7.45) Arterial Blood pCO2 at Patient Temp 66 mmHg (35-46) 50 mmHg (35-46) Arterial Blood pO2 at Patient Temp 75 mmHg (65-108) 59 mmHg (65-108) Arterial Blood HCO3 35 mmol/L (21-28) 30 mmol/L (21-28) Arterial Blood Base Excess 7 mmol/L (-3-3) 4 mmol/L (-3-3) FiO2 35 28 Sodium Level 141 mmol/L (136-145) Potassium Level 4.5 mmol/L (3.5-5.1) Chloride Level 104 mmol/L (98-107) Carbon Dioxide Level 34 mmol/L (21-32) Anion Gap 3 (6-14) Blood Urea Nitrogen 24 mg/dL (7-20) Creatinine 0.5 mg/dL (0.6-1.0) Estimated GFR (Cockcroft-Gault) 120.9 Glucose Level 184 mg/dL (70-99) Calcium Level 8.7 mg/dL (8.5-10.1) Phosphorus Level 2.7 mg/dL (2.6-4.7) Magnesium Level 2.4 mg/dL (1.8-2.4) Test 12/10/16 08:05 O2 Saturation 95 % (92-99) Arterial Blood pH 7.37 (7.35-7.45) Arterial Blood pCO2 at Patient Temp 56 mmHg (35-46) Arterial Blood pO2 at Patient Temp 80 mmHg (65-108) Arterial Blood HCO3 31 mmol/L (21-28) Arterial Blood Base Excess 5 mmol/L (-3-3) FiO2 2 lpm nc Laboratory Tests Test 12/09/16 15:52 12/09/16 20:10 12/10/16 05:30 12/10/16 08:05 O2 Saturation 94 % (92-99) 91 % (92-99) 95 % (92-99) Arterial Blood pH 7.34 (7.35-7.45) 7.40 (7.35-7.45) 7.37 (7.35-7.45) Arterial Blood pCO2 at Patient Temp 66 mmHg (35-46) 50 mmHg (35-46) 56 mmHg (35-46) Arterial Blood pO2 at Patient Temp 75 mmHg (65-108) 59 mmHg (65-108) 80 mmHg (65-108) Arterial Blood HCO3 35 mmol/L (21-28) 30 mmol/L (21-28) 31 mmol/L (21-28) Arterial Blood Base Excess 7 mmol/L (-3-3) 4 mmol/L (-3-3) 5 mmol/L (-3-3) FiO2 35 28 2 lpm nc Sodium Level 141 mmol/L (136-145) Potassium Level 4.5 mmol/L (3.5-5.1) Chloride Level 104 mmol/L (98-107) Carbon Dioxide Level 34 mmol/L (21-32) Anion Gap 3 (6-14) Blood Urea Nitrogen 24 mg/dL (7-20) Creatinine 0.5 mg/dL (0.6-1.0) Estimated GFR (Cockcroft-Gault) 120.9 Glucose Level 184 mg/dL (70-99) Calcium Level 8.7 mg/dL (8.5-10.1) Phosphorus Level 2.7 mg/dL (2.6-4.7) Magnesium Level 2.4 mg/dL (1.8-2.4) Medications Active Scripts Medications Dose Route/Sig Max Daily Dose Days Date Category Prednisone 20 Mg Tablet 50 Mg PO DAILY 5 07/09/16 Rx Diazepam 5 Mg Tablet 5 Mg PO HS 07/06/16 Reported Simvastatin 5 Mg Tablet 5 Mg PO HS 07/06/16 Reported Pepcid (Famotidine) 20 Mg Tablet 20 Mg PO HS 07/06/16 Reported Cymbalta (Duloxetine Hcl) 60 Mg Capsule.dr 60 Mg PO DAILY 07/06/16 Reported Carvedilol 3.125 Mg Tablet 1 Tab PO BID 07/06/16 Reported Klor-Con M20 (Potassium Chloride) 20 Meq Tab.er.prt 20 Meq PO BID 07/06/16 Reported Furosemide 20 Mg Tablet 20 Mg PO DAILY 07/06/16 Reported Comments IMPRESSION: 1. Mild cardiomegaly. 2. Mild ongoing bilateral infrahilar atelectasis and/or pneumonitis. Impression . 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 DOING WELL ON 2 LITER PRN BIPAP NO NEED FOR BIPAP QHS UNLESS PT IN DISTRESS ANTIBX STEROIDS DVT AND GI PROPH MELISSA GRIFFIN MD Dec 10, 2016 15:25
--- NOTE | 2016-12-10 16:46 | PDOC ---
PROGRESS NOTES Subjective Subjective off BIPAP, much improved Objective Objective Vital Signs Date Time Temp Pulse Resp B/P (MAP) Pulse Ox O2 Delivery O2 Flow Rate FiO2 12/10/16 16:00 86 22 104/48 (66) 96 Nasal Cannula 2.0 12/10/16 12:00 98.0 98.0 Intake and Output 12/10/16 06:59 Intake Total 3782 ml Output Total 100 ml Balance 3682 ml Intake Oral 600 ml IV Total 3182 ml Output Stool Total 100 ml # Voids 4 Physical Exam Abdomen: Normal bowel sounds, Soft, No tenderness Heart: Regular rate, Normal S1, Normal S2 Extremities: No clubbing, No cyanosis HEENT: EOMI Lungs: Other (linda wheezing) MUSCULOSKELETAL: No deformity, Osteoarthritic changes both hands Neuro: Other (ON BIAPA FOLLOW COMMMANDS) Skin: No rashes, No breakdown COMMENT off BIPAP Diagnosis Problem List Problems Medical Problems: (1) Pneumonia Status: Acute Assessment Assessment Problems Medical Problems: (1) Pneumonia Status: Acute Assessment 1.Acute resp failure with hypoxia and hypercapnia. 2.Health care associated Pneumonia. 3.Encephalopathy due to resp failure 4.Ch COPD 5.CAD stable 6.Left mastectomy for breast ca 7. H/o Colostomy for diverticular perforation Plan Plan: doing well transfer out of ICU tomorrow TPN after Picc line insertion Off BIPAP. Pulmonary consult appreciated. Vanco+cefepime. IV steroids Oxygen. DVT prevention moved to ICU. critical care less than 30 mts . For more details regarding further plans, please refer to the orders. Problems: Plan Plan of Care Problems Medical Problems: (1) Pneumonia Status: Acute Comment Review of Relevant I have reviewed the following items rivas (where applicable) has been applied. Labs Laboratory Tests Test 12/09/16 20:10 12/10/16 05:30 12/10/16 08:05 O2 Saturation 91 % (92-99) 95 % (92-99) Arterial Blood pH 7.40 (7.35-7.45) 7.37 (7.35-7.45) Arterial Blood pCO2 at Patient Temp 50 mmHg (35-46) 56 mmHg (35-46) Arterial Blood pO2 at Patient Temp 59 mmHg (65-108) 80 mmHg (65-108) Arterial Blood HCO3 30 mmol/L (21-28) 31 mmol/L (21-28) Arterial Blood Base Excess 4 mmol/L (-3-3) 5 mmol/L (-3-3) FiO2 28 2 lpm nc Sodium Level 141 mmol/L (136-145) Potassium Level 4.5 mmol/L (3.5-5.1) Chloride Level 104 mmol/L (98-107) Carbon Dioxide Level 34 mmol/L (21-32) Anion Gap 3 (6-14) Blood Urea Nitrogen 24 mg/dL (7-20) Creatinine 0.5 mg/dL (0.6-1.0) Estimated GFR (Cockcroft-Gault) 120.9 Glucose Level 184 mg/dL (70-99) Calcium Level 8.7 mg/dL (8.5-10.1) Phosphorus Level 2.7 mg/dL (2.6-4.7) Magnesium Level 2.4 mg/dL (1.8-2.4) Microbiology 12/07/16 Blood Culture - Preliminary, Resulted NO GROWTH AFTER 2 DAYS 12/08/16 Gram Stain - Final, Complete Medications Current Medications Sodium Chloride 40 meq/Potassium Chloride 40 meq/ Potassium Phosphate 13.6 mmol/ Magnesium Sulfate 10 meq/ Calcium Gluconate 10 meq/ Multivitamins 10 ml/Chromium / Copper/Manganese/ Seleni/Zn 1 ml/ Total Parenteral Nutrition/Amino Acids/ Dextrose/ Fat Emulsion Intravenous 1,512 ml @ 63 mls/hr TPN CONT IV Last administered on 12/09/16t 22:48; Start 12/09/16 at 22:00; Stop 12/10/16 at 21:59 Sodium Chloride 40 meq/Potassium Chloride 40 meq/ Potassium Phosphate 13.6 mmol/ Magnesium Sulfate 10 meq/ Calcium Gluconate 10 meq/ Multivitamins 10 ml/Chromium / Copper/Manganese/ Seleni/Zn 1 ml/ Total Parenteral Nutrition/Amino Acids/ Dextrose/ Fat Emulsion Intravenous 1,512 ml @ 63 mls/hr TPN CONT IV ; Start at 22:00; Stop 12/11/16 at 21:59 Vitals/I & O Vital Sign - Last 24 Hours 12/09/16 12/09/16 12/09/16 12/09/16 17:00 17:17 18:00 19:00 Pulse 90 92 96 95 Resp 32 20 B/P (MAP) 106/43 93/44 (60) 106/43 (64) Pulse Ox 94 94 O2 Delivery Venturi Mask Venturi Mask O2 Flow Rate 9.0 9.0 12/09/16 12/09/16 12/09/16 12/09/16 19:49 20:00 20:00 21:00 Temp 98.4 98.4 Pulse 97 100 Resp B/P (MAP) 137/50 (79) 135/65 (88) Pulse Ox 92 99 96 O2 Delivery Venturi Mask Nasal Cannula Nasal Cannula Nasal Cannula O2 Flow Rate 6.0 2.0 2.0 2.0 12/09/16 12/09/16 12/10/16 12/10/16 22:00 23:00 00:00 00:00 Temp 98.7 98.7 Pulse 94 91 88 Resp B/P (MAP) 118/52 (74) 134/58 (83) 134/59 (84) Pulse Ox 97 98 96 O2 Delivery Nasal Cannula Nasal Cannula Nasal Cannula Nasal Cannula O2 Flow Rate 2.0 2.0 2.0 2.0 12/10/16 12/10/16 12/10/16 12/10/16 01:00 02:00 03:00 04:00 Pulse 85 83 84 Resp B/P (MAP) 129/52 (77) 109/51 (70) 107/57 (74) Pulse Ox 93 93 96 O2 Delivery Nasal Cannula Nasal Cannula Nasal Cannula Nasal Cannula O2 Flow Rate 2.0 2.0 2.0 2.0 12/10/16 12/10/16 12/10/16 12/10/16 04:00 05:00 06:00 07:00 Temp 97.8 97.8 Pulse 89 82 84 84 Resp B/P (MAP) 106/58 (74) 117/67 (84) 111/55 (73) 123/70 (87) Pulse Ox 94 95 96 96 O2 Delivery Nasal Cannula Nasal Cannula Nasal Cannula Nasal Cannula O2 Flow Rate 2.0 2.0 2.0 2.0 12/10/16 12/10/16 12/10/16 12/10/16 08:00 08:00 08:00 08:09 Temp 98.2 98.2 Pulse 80 80 Resp 20 B/P (MAP) 96/66 96/66 (76) Pulse Ox 97 O2 Delivery Nasal Cannula Nasal Cannula Nasal Cannula O2 Flow Rate 2.0 2.0 2.0 12/10/16 12/10/16 12/10/16 12/10/16 09:00 10:00 11:00 11:44 Pulse 83 79 62 Resp 18 20 22 B/P (MAP) 121/65 (83) 134/63 (86) 127/59 (81) Pulse Ox 98 98 94 O2 Delivery Nasal Cannula Nasal Cannula Nasal Cannula Nasal Cannula O2 Flow Rate 2.0 2.0 2.0 2.0 12/10/16 12/10/16 12/10/16 12/10/16 12:00 12:00 13:00 14:17 Temp 98.0 98.0 Pulse 97 80 84 Resp 20 20 18 B/P (MAP) 140/69 (92) 135/59 (84) 99/58 (72) Pulse Ox 95 95 94 O2 Delivery Nasal Cannula Nasal Cannula Nasal Cannula Nasal Cannula O2 Flow Rate 2.0 2.0 2.0 2.0 12/10/16 12/10/16 12/10/16 12/10/16 15:11 15:46 15:47 16:00 Pulse 84 86 Resp 20 22 B/P (MAP) 126/53 (77) 104/48 (66) Pulse Ox 95 95 96 O2 Delivery Nasal Cannula Nasal Cannula Nasal Cannula Nasal Cannula O2 Flow Rate 2.0 2.0 2.0 2.0 Intake and Output 12/09/16 12/09/16 12/10/16 14:59 22:59 06:59 Intake Total 550 ml 1667 ml 1565 ml Output Total 100 ml Balance 550 ml 1667 ml 1465 ml YUE WYMAN MD Dec 10, 2016 16:46
[2016-12-10] MEDS: IV NORMAL SALINE 1000ML BAG 1,000 ML IV SCH (18:26)
[2016-12-10] MEDS: SIMVASTATIN 10 MG TABLET PO SCH (21:32)
[2016-12-10] MEDS: diazePAM 5 MG TABLET PO SCH (21:32)
[2016-12-10] MEDS: FAMOTIDINE 20 MG TABLET. PO SCH (21:32)
[2016-12-10] MEDS ORDERED: AMINO ACIDS IV SCH ×10 (22:00)
[2016-12-10] MEDS ORDERED: DEXTROSE 70% IV SCH ×10 (22:00)
[2016-12-10] MEDS ORDERED: [UNRECOGNIZED DRUG - OTHER] IV SCH ×10 (22:00)
[2016-12-10] MEDS ORDERED: TOTAL PARENTERAL NUTRITION IV SCH ×10 (22:00)
[2016-12-11] VITALS (17 sets, daily range): BP systolic 86–140; BP diastolic 44–74
[2016-12-11 04:48] LABS: BASO % 0 % (0-3); EOS % 0 % (0-3); HEMATOCRIT 38.7 % (36.0-47.0); HEMOGLOBIN 12.3 g/dL (12.0-15.5); LYMPH # 0.6 x10^3/uL (1.0-4.8); LYMPH % 6 % (24-48); MEAN CORPUSCULAR HEMOGLOBIN 28 pg (25-35); MEAN CORPUSCULAR HGB CONC 32 g/dL (31-37); MEAN CORPUSCULAR VOLUME 88 fL (79-100); MONO % 2 % (0-9); NEUT % 92 % (31-73); PLATELET COUNT 319 x10^3/uL (140-400); RED BLOOD COUNT 4.41 x10^6/uL (3.50-5.40); RED CELL DISTRIBUTION WIDTH 14.2 % (11.5-14.5); WHITE BLOOD COUNT 10.7 x10^3/uL (4.0-11.0)
[2016-12-11 05:17] LABS: CALCIUM 8.4 mg/dL (8.5-10.1); CREATININE 0.5 mg/dL (0.6-1.0); GFR 120.9; POTASSIUM 4.5 mmol/L (3.5-5.1)
[2016-12-11] MEDS: CEFEPIME HCL 1 GM in IV NORMAL SALINE 50ML 50 ML IV SCH ×3 (05:55→20:49)
[2016-12-11] MEDS: IV NORMAL SALINE 1000ML BAG 1,000 ML IV SCH (05:55)
[2016-12-11] MEDS: methylPREDNISolone SOD SUCC PF 125 MG/2 ML VIAL. IV SCH ×3 (05:55→20:51)
[2016-12-11] MEDS: IPRATRPIUM/ALBUTEROL 0.5/2.5MG 3 ML NEBU. NEB SCH ×4 (08:03→20:15)
--- NOTE | 2016-12-11 08:36 | RAD ---
Indication respiratory failure. A single view of the chest was obtained and is compared to an examination one day earlier. There is unchanged cardiomegaly. Volume loss at the left lung base compatible with atelectasis or pneumonia persists and appears similar. A significant change in the appearance of the chest is not seen. Left PICC line is noted. IMPRESSION: No significant change compared to yesterday's study
[2016-12-11] MEDS: POTASSIUM CHLORIDE 20 MEQ TABLET.ER. PO SCH ×2 (09:03→18:32)
[2016-12-11] MEDS: DULoxetine HCL 30 MG CAPSULE.DR PO SCH (09:03)
[2016-12-11] MEDS: FUROSEMIDE 20 MG TABLET PO SCH (09:03)
[2016-12-11] MEDS: CARVEDILOL 3.125 MG TABLET. PO SCH ×2 (09:04→17:00)
[2016-12-11] MEDS: HYDROcodone/APAP 5/325MG 1 TAB TABLET PO PRN ×2 (09:06→22:02)
[2016-12-11] MEDS: ENOXAPARIN 40 MG/0.4 ML SYRINGE. SQ SCH ×2 (09:07→20:51)
[2016-12-11] MEDS: VANCOMYCIN 1.75 GM in IV NORMAL SALINE 500ML BAG 500 ML IV SCH ×2 (09:59→22:02)
[2016-12-11] MEDS: TPN PER PHARMACY MC PRN ×2 (10:47→10:50)
[2016-12-11] MEDS: VANCOMYCIN PER PHARMACY MC PRN (13:03)
--- NOTE | 2016-12-11 14:52 | PDOC ---
PULMONARY PROGRESS NOTES Subjective PT ON 02 N/C NO COMPLAINTS Vitals Vital Signs Date Time Temp Pulse Resp B/P (MAP) Pulse Ox O2 Delivery O2 Flow Rate FiO2 12/11/16 14:04 87 17 92/48 (63) 91 2.0 12/11/16 12:30 Nasal Cannula 12/11/16 06:00 97.9 97.9 ROS: No Nausea, No Chest Pain, No Abdominal Pain, No Increase Cough General: Alert Lungs: Clear Cardiovascular: S1 Abdomen: Soft Neuro Exam: Alert Extremities: No Edema Labs Laboratory Tests Test 12/09/16 15:52 12/09/16 20:10 12/10/16 05:30 12/10/16 08:05 O2 Saturation 94 % (92-99) 91 % (92-99) 95 % (92-99) Arterial Blood pH 7.34 (7.35-7.45) 7.40 (7.35-7.45) 7.37 (7.35-7.45) Arterial Blood pCO2 at Patient Temp 66 mmHg (35-46) 50 mmHg (35-46) 56 mmHg (35-46) Arterial Blood pO2 at Patient Temp 75 mmHg (65-108) 59 mmHg (65-108) 80 mmHg (65-108) Arterial Blood HCO3 35 mmol/L (21-28) 30 mmol/L (21-28) 31 mmol/L (21-28) Arterial Blood Base Excess 7 mmol/L (-3-3) 4 mmol/L (-3-3) 5 mmol/L (-3-3) FiO2 35 28 2 lpm nc Sodium Level 141 mmol/L (136-145) Potassium Level 4.5 mmol/L (3.5-5.1) Chloride Level 104 mmol/L (98-107) Carbon Dioxide Level 34 mmol/L (21-32) Anion Gap 3 (6-14) Blood Urea Nitrogen 24 mg/dL (7-20) Creatinine 0.5 mg/dL (0.6-1.0) Estimated GFR (Cockcroft-Gault) 120.9 Glucose Level 184 mg/dL (70-99) Calcium Level 8.7 mg/dL (8.5-10.1) Phosphorus Level 2.7 mg/dL (2.6-4.7) Magnesium Level 2.4 mg/dL (1.8-2.4) Test 12/11/16 04:45 White Blood Count 10.7 x10^3/uL (4.0-11.0) Red Blood Count 4.41 x10^6/uL (3.50-5.40) Hemoglobin 12.3 g/dL (12.0-15.5) Hematocrit 38.7 % (36.0-47.0) Mean Corpuscular Volume 88 fL (79-100) Mean Corpuscular Hemoglobin 28 pg (25-35) Mean Corpuscular Hemoglobin Concent 32 g/dL (31-37) Red Cell Distribution Width 14.2 % (11.5-14.5) Platelet Count 319 x10^3/uL (140-400) Neutrophils (%) (Auto) 92 % (31-73) Lymphocytes (%) (Auto) 6 % (24-48) Monocytes (%) (Auto) 2 % (0-9) Eosinophils (%) (Auto) 0 % (0-3) Basophils (%) (Auto) 0 % (0-3) Neutrophils # (Auto) 9.9 x10^3uL (1.8-7.7) Lymphocytes # (Auto) 0.6 x10^3/uL (1.0-4.8) Monocytes # (Auto) 0.2 x10^3/uL (0.0-1.1) Eosinophils # (Auto) 0.0 x10^3/uL (0.0-0.7) Basophils # (Auto) 0.0 x10^3/uL (0.0-0.2) Sodium Level 142 mmol/L (136-145) Potassium Level 4.5 mmol/L (3.5-5.1) Chloride Level 105 mmol/L (98-107) Carbon Dioxide Level 36 mmol/L (21-32) Anion Gap 1 (6-14) Blood Urea Nitrogen 21 mg/dL (7-20) Creatinine 0.5 mg/dL (0.6-1.0) Estimated GFR (Cockcroft-Gault) 120.9 Glucose Level 151 mg/dL (70-99) Calcium Level 8.4 mg/dL (8.5-10.1) Laboratory Tests Test 12/11/16 04:45 White Blood Count 10.7 x10^3/uL (4.0-11.0) Red Blood Count 4.41 x10^6/uL (3.50-5.40) Hemoglobin 12.3 g/dL (12.0-15.5) Hematocrit 38.7 % (36.0-47.0) Mean Corpuscular Volume 88 fL (79-100) Mean Corpuscular Hemoglobin 28 pg (25-35) Mean Corpuscular Hemoglobin Concent 32 g/dL (31-37) Red Cell Distribution Width 14.2 % (11.5-14.5) Platelet Count 319 x10^3/uL (140-400) Neutrophils (%) (Auto) 92 % (31-73) Lymphocytes (%) (Auto) 6 % (24-48) Monocytes (%) (Auto) 2 % (0-9) Eosinophils (%) (Auto) 0 % (0-3) Basophils (%) (Auto) 0 % (0-3) Neutrophils # (Auto) 9.9 x10^3uL (1.8-7.7) Lymphocytes # (Auto) 0.6 x10^3/uL (1.0-4.8) Monocytes # (Auto) 0.2 x10^3/uL (0.0-1.1) Eosinophils # (Auto) 0.0 x10^3/uL (0.0-0.7) Basophils # (Auto) 0.0 x10^3/uL (0.0-0.2) Sodium Level 142 mmol/L (136-145) Potassium Level 4.5 mmol/L (3.5-5.1) Chloride Level 105 mmol/L (98-107) Carbon Dioxide Level 36 mmol/L (21-32) Anion Gap 1 (6-14) Blood Urea Nitrogen 21 mg/dL (7-20) Creatinine 0.5 mg/dL (0.6-1.0) Estimated GFR (Cockcroft-Gault) 120.9 Glucose Level 151 mg/dL (70-99) Calcium Level 8.4 mg/dL (8.5-10.1) Medications Active Scripts Medications Dose Route/Sig Max Daily Dose Days Date Category Prednisone 20 Mg Tablet 50 Mg PO DAILY 5 07/09/16 Rx Diazepam 5 Mg Tablet 5 Mg PO HS 07/06/16 Reported Simvastatin 5 Mg Tablet 5 Mg PO HS 07/06/16 Reported Pepcid (Famotidine) 20 Mg Tablet 20 Mg PO HS 07/06/16 Reported Cymbalta (Duloxetine Hcl) 60 Mg Capsule.dr 60 Mg PO DAILY 07/06/16 Reported Carvedilol 3.125 Mg Tablet 1 Tab PO BID 07/06/16 Reported Klor-Con M20 (Potassium Chloride) 20 Meq Tab.er.prt 20 Meq PO BID 07/06/16 Reported Furosemide 20 Mg Tablet 20 Mg PO DAILY 07/06/16 Reported Comments IMPRESSION: 1. Mild cardiomegaly. 2. Mild ongoing bilateral infrahilar atelectasis and/or pneumonitis. Impression . 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 TRANSFER TO FLOOR SPOKE WITH RN LOOKS GOOD DOING WELL ON 2 LITER PRN BIPAP NO NEED FOR BIPAP QHS UNLESS PT IN DISTRESS ANTIBX STEROIDS DVT AND GI PROPH MELISSA GRIFFIN MD Dec 11, 2016 14:52
--- NOTE | 2016-12-11 16:14 | PDOC ---
PROGRESS NOTES Subjective Subjective more awake and talking Objective Objective Vital Signs Date Time Temp Pulse Resp B/P (MAP) Pulse Ox O2 Delivery O2 Flow Rate FiO2 12/11/16 15:45 96 Nasal Cannula 2.0 12/11/16 14:04 87 17 92/48 (63) 12/11/16 06:00 97.9 97.9 Intake and Output 12/11/16 07:00 Intake Total 2648 ml Balance 2648 ml Intake Oral 720 ml IV Total 1928 ml # Voids 3 Physical Exam Abdomen: Normal bowel sounds, Soft, No tenderness Heart: Regular rate, Normal S1, Normal S2 Extremities: No clubbing, No cyanosis HEENT: EOMI Lungs: Other (linda wheezing) MUSCULOSKELETAL: No deformity, Osteoarthritic changes both hands Neuro: Other (ON BIAPA FOLLOW COMMMANDS) Skin: No rashes, No breakdown COMMENT off BIPAP Diagnosis Problem List Problems Medical Problems: (1) Pneumonia Status: Acute Assessment Assessment Problems Medical Problems: (1) Pneumonia Status: Acute Assessment 1.Acute resp failure with hypoxia and hypercapnia. 2.Health care associated Pneumonia. 3.Encephalopathy due to resp failure 4.Ch COPD 5.CAD stable 6.Left mastectomy for breast ca 7. H/o Colostomy for diverticular perforation Plan Plan: doing well taper steroids transfer out of ICU today d/c TPN . Off BIPAP. Pulmonary consult appreciated. Vanco+cefepime.streamline antibiotics IV steroids Oxygen. DVT prevention moved out of ICU. critical care less than 30 mts . For more details regarding further plans, please refer to the orders. Problems: Plan Plan of Care Problems Medical Problems: (1) Pneumonia Status: Acute Comment Review of Relevant I have reviewed the following items rivas (where applicable) has been applied. Labs Laboratory Tests Test 12/11/16 04:45 White Blood Count 10.7 x10^3/uL (4.0-11.0) Red Blood Count 4.41 x10^6/uL (3.50-5.40) Hemoglobin 12.3 g/dL (12.0-15.5) Hematocrit 38.7 % (36.0-47.0) Mean Corpuscular Volume 88 fL (79-100) Mean Corpuscular Hemoglobin 28 pg (25-35) Mean Corpuscular Hemoglobin Concent 32 g/dL (31-37) Red Cell Distribution Width 14.2 % (11.5-14.5) Platelet Count 319 x10^3/uL (140-400) Neutrophils (%) (Auto) 92 % (31-73) Lymphocytes (%) (Auto) 6 % (24-48) Monocytes (%) (Auto) 2 % (0-9) Eosinophils (%) (Auto) 0 % (0-3) Basophils (%) (Auto) 0 % (0-3) Neutrophils # (Auto) 9.9 x10^3uL (1.8-7.7) Lymphocytes # (Auto) 0.6 x10^3/uL (1.0-4.8) Monocytes # (Auto) 0.2 x10^3/uL (0.0-1.1) Eosinophils # (Auto) 0.0 x10^3/uL (0.0-0.7) Basophils # (Auto) 0.0 x10^3/uL (0.0-0.2) Sodium Level 142 mmol/L (136-145) Potassium Level 4.5 mmol/L (3.5-5.1) Chloride Level 105 mmol/L (98-107) Carbon Dioxide Level 36 mmol/L (21-32) Anion Gap 1 (6-14) Blood Urea Nitrogen 21 mg/dL (7-20) Creatinine 0.5 mg/dL (0.6-1.0) Estimated GFR (Cockcroft-Gault) 120.9 Glucose Level 151 mg/dL (70-99) Calcium Level 8.4 mg/dL (8.5-10.1) Microbiology 12/07/16 Blood Culture - Preliminary, Resulted NO GROWTH AFTER 3 DAYS 12/08/16 Gram Stain - Final, Complete Medications Current Medications Sodium Chloride 40 meq/Potassium Chloride 40 meq/ Potassium Phosphate 13.6 mmol/ Magnesium Sulfate 10 meq/ Calcium Gluconate 10 meq/ Multivitamins 10 ml/Chromium / Copper/Manganese/ Seleni/Zn 1 ml/ Total Parenteral Nutrition/Amino Acids/ Dextrose/ Fat Emulsion Intravenous 1,512 ml @ 63 mls/hr TPN CONT IV ; Start at 22:00; Stop 12/11/16 at 13:19; Status DC Vitals/I & O Vital Sign - Last 24 Hours 7/5/17 7/5/17 7/5/17 7/5/17 17:00 18:03 18:22 19:00 Temp 97.6 97.6 Pulse 83 92 89 87 Resp 19 27 B/P (MAP) 119/71 (87) 117/51 (73) 116/51 102/46 (64) Pulse Ox 95 94 O2 Delivery Nasal Cannula O2 Flow Rate 2.0 12/10/16 12/10/16 12/10/16 12/10/16 19:30 20:00 20:14 21:00 Pulse 84 78 Resp 28 38 B/P (MAP) 109/50 (69) 103/55 (71) Pulse Ox 95 O2 Delivery Nasal Cannula Nasal Cannula O2 Flow Rate 2.0 2.0 12/10/16 12/10/16 12/11/16 12/11/16 22:00 23:00 00:01 00:03 Pulse 79 75 78 Resp 26 B/P (MAP) 103/55 (71) 132/93 (106) 115/59 (77) Pulse Ox 94 96 95 O2 Delivery Nasal Cannula Nasal Cannula Nasal Cannula O2 Flow Rate 2.0 2.0 2.0 2.0 12/11/16 12/11/16 12/11/16 12/11/16 01:05 02:00 03:02 04:05 Pulse 74 77 80 77 Resp 27 16 18 18 B/P (MAP) 127/74 (91) 125/69 (87) 115/74 (88) 138/58 (84) Pulse Ox 95 94 94 95 O2 Delivery Nasal Cannula Nasal Cannula Nasal Cannula O2 Flow Rate 2.0 2.0 2.0 2.0 12/11/16 12/11/16 12/11/16 12/11/16 04:10 05:05 06:00 07:27 Temp 97.9 97.9 Pulse 70 78 71 Resp 23 20 27 B/P (MAP) 140/60 (86) 117/60 (79) 111/53 (72) Pulse Ox 96 95 95 O2 Delivery Nasal Cannula Nasal Cannula Nasal Cannula O2 Flow Rate 2.0 2.0 2.0 2.0 12/11/16 12/11/16 12/11/16 12/11/16 08:02 08:11 08:11 09:04 Pulse 62 88 Resp 30 B/P (MAP) 104/66 (79) 112/48 Pulse Ox 93 96 O2 Delivery Nasal Cannula Nasal Cannula Nasal Cannula O2 Flow Rate 2.0 2.0 2.0 12/11/16 12/11/16 12/11/16 12/11/16 09:07 10:07 11:04 11:57 Pulse 88 80 84 Resp 26 29 18 B/P (MAP) 112/48 (69) 104/44 (64) 104/44 (64) Pulse Ox 99 96 93 96 O2 Delivery Nasal Cannula Nasal Cannula Nasal Cannula O2 Flow Rate 2.0 2.0 2.0 2.0 12/11/16 12/11/16 12/11/16 12/11/16 12:01 12:30 12:30 14:04 Pulse 82 83 87 Resp 15 25 17 B/P (MAP) 97/56 (70) 86/49 (61) 92/48 (63) Pulse Ox 94 95 91 O2 Delivery Nasal Cannula O2 Flow Rate 2.0 2.0 2.0 2.0 12/11/16 15:45 Pulse Ox 96 O2 Delivery Nasal Cannula O2 Flow Rate 2.0 Intake and Output 12/10/16 12/10/16 12/11/16 15:00 23:00 07:00 Intake Total 150 ml 2048 ml 450 ml Balance 150 ml 2048 ml 450 ml YUE WYMAN MD Dec 11, 2016 16:14
--- NOTE | 2016-12-11 17:04 | PDOC2 ---
CONSULT Date of Consult Date of Consult DATE: 12/11/16 TIME: 16:53 Reason for Consult Reason for Consult: rehab evaluation Referring Physician Referring Physician: Identification/Chief Complaint Chief Complaint weakness Problems: History of Present Illness Reason for Visit: She was admitted with altered mental status from [facility] and is being treated for pneumonia. Past Medical History Cardiovascular: CAD, HTN, Hyperlipidemia Pulmonary: COPD GI: Diverticulosis Heme/Onc: Cancer Musculoskeletal: low back pain, Osteoarthritis, Weakness, Stiffness Renal/: Chronic renal insuff, UTI Past Surgical History Past Surgical History: Appendectomy, Mastectomy, Other (colostomy) Family History Family History: Family History Unknown Social History ALCOHOL: none Drugs: None Lives: [facility] Current Problem List Problem List Problems Medical Problems: (1) Pneumonia Status: Acute Current Medications Current Medications Current Medications Sodium Chloride 1,000 ml @ 1,000 mls/hr 1X ONCE IV Last administered on 19:30; Start 12/07/16 at 19:30; Stop 12/07/16 at 20:29; Status DC Iohexol (Omnipaque 300 Mg/ml) 75 ml 1X ONCE IV Last administered on 12/07/16 20:37; Start 12/07/16 at 20:15; Stop 12/07/16 at 20:17; Status DC Cefepime HCl 1 gm/ Sodium Chloride 50 ml @ 100 mls/hr Q8HRS IV Last administered on 12/11/16 14:40; Start 12/07/16 at 22:00 Vancomycin HCl (Vanco Per Pharmacy) 1 each PRN DAILY PRN MC SEE COMMENTS Last administered on 12/11/16 13:03; Start 12/07/16 at 21:00 Ondansetron HCl (Zofran) 4 mg PRN Q8HRS PRN IV NAUSEA/VOMITING; Start 12/07/16 at 21:00; Stop 12/08/16 at 20:59; Status DC Morphine Sulfate 4 mg PRN Q2HR PRN IV PAIN; Start 12/07/16 at 21:00; Stop at 20:59; Status DC Acetaminophen (Tylenol) 650 mg PRN Q4HRS PRN PO FEVER; Start 12/07/16 at 21:00; Stop 12/08/16 at 20:59; Status DC Vancomycin HCl 2 gm/Sodium Chloride 500 ml @ 250 mls/hr 1X ONCE IV Last administered on 12/07/16 22:08; Start 12/07/16 at 21:30; Stop 12/07/16 at 23:29; Status DC Albuterol/ Ipratropium (Duoneb) 3 ml RTQID NEB Last administered on 12/11/16 15 :45; Start 12/08/16 at 08:00 Albuterol Sulfate (Ventolin Neb Soln) 2.5 mg PRN QID PRN NEB SHORTNESS OF BREATH; Start 12/07/16 at 22:30 Sodium Chloride 1,000 ml @ 75 mls/hr [id number] IV Last administered on 12/10/16 18:26; Start 12/07/16 at 22:30; Stop 12/11/16 at 13:18; Status DC Methylprednisolone Sodium Succinate (SOLU-Medrol 125MG VIAL) 80 mg Q8HRS IV Last administered on 12/11/16 14:40; Start 12/08/16 at 06:00; Stop 12/11/16 at 16: 16; Status DC Carvedilol (Coreg) 3.125 mg BIDWMEALS PO Last administered on 12/11/16 09:04; Start 12/08/16 at 08:00 Diazepam (Valium) 5 mg HS PO Last administered on 12/10/16 21:32; Start at 23:00 Famotidine (Pepcid) 20 mg HS PO Last administered on 12/10/16 21:32; Start 12/07 at 23:00 Furosemide (Lasix) 20 mg DAILY PO Last administered on 12/11/16 09:03; Start at 09:00 Potassium Chloride (Klor-Con) 20 meq BIDWMEALS PO Last administered on 09:03; Start 12/08/16 at 08:00 Simvastatin (Zocor) 5 mg HS PO Last administered on 12/10/16 21:32; Start at 21:00 Duloxetine HCl (Cymbalta) 60 mg DAILY PO Last administered on 12/11/16 09:03; Start 12/08/16 at 09:00 Acetaminophen/ Hydrocodone Bitart (Lortab 5/325) 1 tab PRN Q4HRS PRN PO MILD PAIN Last administered on 12/11/16 09:06; Start 12/07/16 at 22:15 Enoxaparin Sodium (Lovenox 40mg Syringe) 40 mg Q24H SQ Last administered on 12/08 00:21; Start 12/07/16 at 22:30; Stop 12/08/16 at 10:29; Status DC Vancomycin HCl 1.75 gm/Sodium Chloride 500 ml @ 250 mls/hr Q12H IV Last administered on 12/11/16 09:59; Start 12/08/16 at 10:00 Vancomycin HCl 1 each 1X ONCE MC ; Start 12/09/16 at 09:30; Stop 12/09/16 at 09: 31; Status DC Enoxaparin Sodium (Lovenox 40mg Syringe) 40 mg BID SQ Last administered on 09:07; Start 12/08/16 at 21:00 Amino Acids/ Glycerin/ Electrolytes 1,000 ml @ 80 mls/hr [id number] IV ; Start 12/09/16 at 10:30; Stop 12/09/16 at 21:59; Status DC Info 1 each PRN DAILY PRN MC SEE COMMENTS Last administered on 12/11/16 10:50; Start 12/09/16 at 10:30; Stop 12/11/16 at 13:18; Status DC Sodium Chloride 40 meq/Potassium Chloride 40 meq/ Potassium Phosphate 13.6 mmol/ Magnesium Sulfate 10 meq/ Calcium Gluconate 10 meq/ Multivitamins 10 ml/Chromium / Copper/Manganese/ Seleni/Zn 1 ml/ Total Parenteral Nutrition/Amino Acids/ Dextrose/ Fat Emulsion Intravenous 1,512 ml @ 63 mls/hr TPN CONT IV Last administered on 12/09/16 22:48; Start 12/09/16 at 22:00; Stop 12/10/16 at 21:59; Status DC Sodium Chloride 40 meq/Potassium Chloride 40 meq/ Potassium Phosphate 13.6 mmol/ Magnesium Sulfate 10 meq/ Calcium Gluconate 10 meq/ Multivitamins 10 ml/Chromium / Copper/Manganese/ Seleni/Zn 1 ml/ Total Parenteral Nutrition/Amino Acids/ Dextrose/ Fat Emulsion Intravenous 1,512 ml @ 63 mls/hr TPN CONT IV ; Start at 22:00; Stop 12/11/16 at 13:19; Status DC Methylprednisolone Sodium Succinate (SOLU-Medrol 125MG VIAL) 80 mg BID IV ; Start 12/11/16 at 21:00 Active Scripts Active Prednisone 20 Mg Tablet 50 Mg PO DAILY 5 Days Reported Diazepam 5 Mg Tablet 5 Mg PO HS Simvastatin 5 Mg Tablet 5 Mg PO HS Pepcid (Famotidine) 20 Mg Tablet 20 Mg PO HS Cymbalta (Duloxetine Hcl) 60 Mg Capsule.dr 60 Mg PO DAILY Carvedilol 3.125 Mg Tablet 1 Tab PO BID Klor-Con M20 (Potassium Chloride) 20 Meq Tab.er.prt 20 Meq PO BID Furosemide 20 Mg Tablet 20 Mg PO DAILY Allergies Allergies: Coded Allergies: KAMERON Inhibitors (Verified Allergy, Severe, angioedema, 07/09/16) aspirin (Verified Allergy, Intermediate, 09/10/15) Physical Exam General: Alert, Oriented X3, Cooperative, No acute distress HEENT: PERRLA, Mucous membr. moist/pink, Other (severe decreased acuity of hearing of long standing duration.) Lungs: Other (she is receiving oxygen by nasal canula.) Neuro: Cranial nerves 3-12 NL (she is with generalized muscle weakness,more so of her lower extremiites and she had absent knee and ankle jerks and she requires maximal help with bed mobility and she is requiring Randall lift for transfers at [place].), Other Psych/Mental Status: Mental status NL, Mood NL MUSCULOSKELETAL: Other (she had crepitus on ROM of her knees and she had tenderness to palpation over lumbar area and SLR test is negative bilaterally.) Vitals VITALS Vital Signs Date Time Temp Pulse Resp B/P (MAP) Pulse Ox O2 Delivery O2 Flow Rate FiO2 12/11/16 15:45 96 Nasal Cannula 2.0 12/11/16 14:04 87 17 92/48 (63) 12/11/16 06:00 97.9 97.9 Labs Labs Laboratory Tests Test 12/09/16 20:10 12/10/16 05:30 12/10/16 08:05 12/11/16 04:45 O2 Saturation 91 % (92-99) 95 % (92-99) Arterial Blood pH 7.40 (7.35-7.45) 7.37 (7.35-7.45) Arterial Blood pCO2 at Patient Temp 50 mmHg (35-46) 56 mmHg (35-46) Arterial Blood pO2 at Patient Temp 59 mmHg (65-108) 80 mmHg (65-108) Arterial Blood HCO3 30 mmol/L (21-28) 31 mmol/L (21-28) Arterial Blood Base Excess 4 mmol/L (-3-3) 5 mmol/L (-3-3) FiO2 28 2 lpm nc Sodium Level 141 mmol/L (136-145) 142 mmol/L (136-145) Potassium Level 4.5 mmol/L (3.5-5.1) 4.5 mmol/L (3.5-5.1) Chloride Level 104 mmol/L (98-107) 105 mmol/L (98-107) Carbon Dioxide Level 34 mmol/L (21-32) 36 mmol/L (21-32) Anion Gap 3 (6-14) 1 (6-14) Blood Urea Nitrogen 24 mg/dL (7-20) 21 mg/dL (7-20) Creatinine 0.5 mg/dL (0.6-1.0) 0.5 mg/dL (0.6-1.0) Estimated GFR (Cockcroft-Gault) 120.9 120.9 Glucose Level 184 mg/dL (70-99) 151 mg/dL (70-99) Calcium Level 8.7 mg/dL (8.5-10.1) 8.4 mg/dL (8.5-10.1) Phosphorus Level 2.7 mg/dL (2.6-4.7) Magnesium Level 2.4 mg/dL (1.8-2.4) White Blood Count 10.7 x10^3/uL (4.0-11.0) Red Blood Count 4.41 x10^6/uL (3.50-5.40) Hemoglobin 12.3 g/dL (12.0-15.5) Hematocrit 38.7 % (36.0-47.0) Mean Corpuscular Volume 88 fL (79-100) Mean Corpuscular Hemoglobin 28 pg (25-35) Mean Corpuscular Hemoglobin Concent 32 g/dL (31-37) Red Cell Distribution Width 14.2 % (11.5-14.5) Platelet Count 319 x10^3/uL (140-400) Neutrophils (%) (Auto) 92 % (31-73) Lymphocytes (%) (Auto) 6 % (24-48) Monocytes (%) (Auto) 2 % (0-9) Eosinophils (%) (Auto) 0 % (0-3) Basophils (%) (Auto) 0 % (0-3) Neutrophils # (Auto) 9.9 x10^3uL (1.8-7.7) Lymphocytes # (Auto) 0.6 x10^3/uL (1.0-4.8) Monocytes # (Auto) 0.2 x10^3/uL (0.0-1.1) Eosinophils # (Auto) 0.0 x10^3/uL (0.0-0.7) Basophils # (Auto) 0.0 x10^3/uL (0.0-0.2) Laboratory Tests Test 12/11/16 04:45 White Blood Count 10.7 x10^3/uL (4.0-11.0) Red Blood Count 4.41 x10^6/uL (3.50-5.40) Hemoglobin 12.3 g/dL (12.0-15.5) Hematocrit 38.7 % (36.0-47.0) Mean Corpuscular Volume 88 fL (79-100) Mean Corpuscular Hemoglobin 28 pg (25-35) Mean Corpuscular Hemoglobin Concent 32 g/dL (31-37) Red Cell Distribution Width 14.2 % (11.5-14.5) Platelet Count 319 x10^3/uL (140-400) Neutrophils (%) (Auto) 92 % (31-73) Lymphocytes (%) (Auto) 6 % (24-48) Monocytes (%) (Auto) 2 % (0-9) Eosinophils (%) (Auto) 0 % (0-3) Basophils (%) (Auto) 0 % (0-3) Neutrophils # (Auto) 9.9 x10^3uL (1.8-7.7) Lymphocytes # (Auto) 0.6 x10^3/uL (1.0-4.8) Monocytes # (Auto) 0.2 x10^3/uL (0.0-1.1) Eosinophils # (Auto) 0.0 x10^3/uL (0.0-0.7) Basophils # (Auto) 0.0 x10^3/uL (0.0-0.2) Sodium Level 142 mmol/L (136-145) Potassium Level 4.5 mmol/L (3.5-5.1) Chloride Level 105 mmol/L (98-107) Carbon Dioxide Level 36 mmol/L (21-32) Anion Gap 1 (6-14) Blood Urea Nitrogen 21 mg/dL (7-20) Creatinine 0.5 mg/dL (0.6-1.0) Estimated GFR (Cockcroft-Gault) 120.9 Glucose Level 151 mg/dL (70-99) Calcium Level 8.4 mg/dL (8.5-10.1) Assessment/Plan Assessment/Plan Mobility and self care limitations from chronic low back pain,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 Physical and occupational therapy felt that she is not a candidate for rehab as she has been dependent for her care at [place]. TONYA BONILLA MD Dec 11, 2016 17:04
[2016-12-11] MEDS: diazePAM 5 MG TABLET PO SCH (20:50)
[2016-12-11] MEDS: SIMVASTATIN 10 MG TABLET PO SCH (20:50)
[2016-12-11] MEDS: FAMOTIDINE 20 MG TABLET. PO SCH (20:50)
[2016-12-12] VITALS (8 sets, daily range): BP systolic 114–141; BP diastolic 47–75
[2016-12-12] MEDS: CEFEPIME HCL 1 GM in IV NORMAL SALINE 50ML 50 ML IV SCH ×3 (05:40→21:10)
[2016-12-12] MEDS: IPRATRPIUM/ALBUTEROL 0.5/2.5MG 3 ML NEBU. NEB SCH ×4 (07:08→19:17)
--- NOTE | 2016-12-12 08:05 | RAD ---
Portable chest, 12/12/2016: History: Respiratory failure Comparison is made to yesterday's study. A left PICC remains in place extending into the superior vena cava. The heart is mildly enlarged. The pulmonary vascularity is within normal limits. There are mild persistent bibasilar linear opacities compatible with atelectasis and/or scarring. No new pulmonary abnormality is seen. There is no evidence of pleural fluid. IMPRESSION: No significant change since yesterday's study.
[2016-12-12] MEDS: ENOXAPARIN 40 MG/0.4 ML SYRINGE. SQ SCH ×2 (08:46→21:10)
[2016-12-12] MEDS: methylPREDNISolone SOD SUCC PF 125 MG/2 ML VIAL. IV SCH (08:47)
[2016-12-12] MEDS: POTASSIUM CHLORIDE 20 MEQ TABLET.ER. PO SCH ×2 (08:47→17:00)
[2016-12-12] MEDS: FUROSEMIDE 20 MG TABLET PO SCH (08:48)
[2016-12-12] MEDS: DULoxetine HCL 30 MG CAPSULE.DR PO SCH (08:48)
[2016-12-12] MEDS: CARVEDILOL 3.125 MG TABLET. PO SCH ×2 (08:49→17:49)
--- NOTE | 2016-12-12 09:53 | PDOC ---
PROGRESS NOTES Subjective Subjective She had no new complaints. Objective Objective Vital Signs Date Time Temp Pulse Resp B/P (MAP) Pulse Ox O2 Delivery O2 Flow Rate FiO2 12/12/16 08:49 69 136/61 12/12/16 08:00 Nasal Cannula 2.0 12/12/16 07:08 98 12/12/16 07:00 97.5 16 97.5 Intake and Output 12/12/16 07:00 Intake Total 1200 ml Output Total 0 ml Balance 1200 ml Intake Oral 600 ml IV Total 600 ml Output Urine Total 0 ml # Voids 2 # Bowel Movements 1 Physical Exam Physical Exam She is awake and talking,supine in bed,receiving oxygen by nasal canula and she continues with generalized muscle weakness and joint stiffness and requires maximal help with mobility. Assessment Assessment Problems Medical Problems: (1) Pneumonia Status: Acute Plan Plan of Care To NH when medically stable. Comment Review of Relevant I have reviewed the following items rivas (where applicable) has been applied. Labs Laboratory Tests Test 12/11/16 04:45 White Blood Count 10.7 x10^3/uL (4.0-11.0) Red Blood Count 4.41 x10^6/uL (3.50-5.40) Hemoglobin 12.3 g/dL (12.0-15.5) Hematocrit 38.7 % (36.0-47.0) Mean Corpuscular Volume 88 fL (79-100) Mean Corpuscular Hemoglobin 28 pg (25-35) Mean Corpuscular Hemoglobin Concent 32 g/dL (31-37) Red Cell Distribution Width 14.2 % (11.5-14.5) Platelet Count 319 x10^3/uL (140-400) Neutrophils (%) (Auto) 92 % (31-73) Lymphocytes (%) (Auto) 6 % (24-48) Monocytes (%) (Auto) 2 % (0-9) Eosinophils (%) (Auto) 0 % (0-3) Basophils (%) (Auto) 0 % (0-3) Neutrophils # (Auto) 9.9 x10^3uL (1.8-7.7) Lymphocytes # (Auto) 0.6 x10^3/uL (1.0-4.8) Monocytes # (Auto) 0.2 x10^3/uL (0.0-1.1) Eosinophils # (Auto) 0.0 x10^3/uL (0.0-0.7) Basophils # (Auto) 0.0 x10^3/uL (0.0-0.2) Sodium Level 142 mmol/L (136-145) Potassium Level 4.5 mmol/L (3.5-5.1) Chloride Level 105 mmol/L (98-107) Carbon Dioxide Level 36 mmol/L (21-32) Anion Gap 1 (6-14) Blood Urea Nitrogen 21 mg/dL (7-20) Creatinine 0.5 mg/dL (0.6-1.0) Estimated GFR (Cockcroft-Gault) 120.9 Glucose Level 151 mg/dL (70-99) Calcium Level 8.4 mg/dL (8.5-10.1) Microbiology 12/07/16 Blood Culture - Preliminary, Resulted NO GROWTH AFTER 4 DAYS 12/08/16 Gram Stain - Final, Complete Medications Current Medications Sodium Chloride 1,000 ml @ 1,000 mls/hr 1X ONCE IV Last administered on 19:30; Start 12/07/16 at 19:30; Stop 12/07/16 at 20:29; Status DC Iohexol (Omnipaque 300 Mg/ml) 75 ml 1X ONCE IV Last administered on 12/07/16 20:37; Start 12/07/16 at 20:15; Stop 12/07/16 at 20:17; Status DC Cefepime HCl 1 gm/ Sodium Chloride 50 ml @ 100 mls/hr Q8HRS IV Last administered on 12/12/16 05:40; Start 12/07/16 at 22:00 Vancomycin HCl (Vanco Per Pharmacy) 1 each PRN DAILY PRN MC SEE COMMENTS Last administered on 12/11/16 13:03; Start 12/07/16 at 21:00 Ondansetron HCl (Zofran) 4 mg PRN Q8HRS PRN IV NAUSEA/VOMITING; Start 12/07/16 at 21:00; Stop 12/08/16 at 20:59; Status DC Morphine Sulfate 4 mg PRN Q2HR PRN IV PAIN; Start 12/07/16 at 21:00; Stop at 20:59; Status DC Acetaminophen (Tylenol) 650 mg PRN Q4HRS PRN PO FEVER; Start 12/07/16 at 21:00; Stop 12/08/16 at 20:59; Status DC Vancomycin HCl 2 gm/Sodium Chloride 500 ml @ 250 mls/hr 1X ONCE IV Last administered on 12/07/16 22:08; Start 12/07/16 at 21:30; Stop 12/07/16 at 23:29; Status DC Albuterol/ Ipratropium (Duoneb) 3 ml RTQID NEB Last administered on 12/12/16 07 :08; Start 12/08/16 at 08:00 Albuterol Sulfate (Ventolin Neb Soln) 2.5 mg PRN QID PRN NEB SHORTNESS OF BREATH; Start 12/07/16 at 22:30 Sodium Chloride 1,000 ml @ 75 mls/hr [id number] IV Last administered on 12/10/16 18:26; Start 12/07/16 at 22:30; Stop 12/11/16 at 13:18; Status DC Methylprednisolone Sodium Succinate (SOLU-Medrol 125MG VIAL) 80 mg Q8HRS IV Last administered on 12/11/16 14:40; Start 12/08/16 at 06:00; Stop 12/11/16 at 16: 16; Status DC Carvedilol (Coreg) 3.125 mg BIDWMEALS PO Last administered on 12/12/16 08:49; Start 12/08/16 at 08:00 Diazepam (Valium) 5 mg HS PO Last administered on 12/11/16 20:50; Start at 23:00 Famotidine (Pepcid) 20 mg HS PO Last administered on 12/11/16 20:50; Start 12/07 at 23:00 Furosemide (Lasix) 20 mg DAILY PO Last administered on 12/12/16 08:48; Start at 09:00 Potassium Chloride (Klor-Con) 20 meq BIDWMEALS PO Last administered on 08:47; Start 12/08/16 at 08:00 Simvastatin (Zocor) 5 mg HS PO Last administered on 12/11/16 20:50; Start at 21:00 Duloxetine HCl (Cymbalta) 60 mg DAILY PO Last administered on 12/12/16 08:48; Start 12/08/16 at 09:00 Acetaminophen/ Hydrocodone Bitart (Lortab 5/325) 1 tab PRN Q4HRS PRN PO MILD PAIN Last administered on 12/11/16 22:02; Start 12/07/16 at 22:15 Enoxaparin Sodium (Lovenox 40mg Syringe) 40 mg Q24H SQ Last administered on 12/08 00:21; Start 12/07/16 at 22:30; Stop 12/08/16 at 10:29; Status DC Vancomycin HCl 1.75 gm/Sodium Chloride 500 ml @ 250 mls/hr Q12H IV Last administered on 12/11/16 22:02; Start 12/08/16 at 10:00 Vancomycin HCl 1 each 1X ONCE MC ; Start 12/09/16 at 09:30; Stop 12/09/16 at 09: 31; Status DC Enoxaparin Sodium (Lovenox 40mg Syringe) 40 mg BID SQ Last administered on 08:46; Start 12/08/16 at 21:00 Amino Acids/ Glycerin/ Electrolytes 1,000 ml @ 80 mls/hr [id number] IV ; Start 12/09/16 at 10:30; Stop 12/09/16 at 21:59; Status DC Info 1 each PRN DAILY PRN MC SEE COMMENTS Last administered on 12/11/16 10:50; Start 12/09/16 at 10:30; Stop 12/11/16 at 13:18; Status DC Sodium Chloride 40 meq/Potassium Chloride 40 meq/ Potassium Phosphate 13.6 mmol/ Magnesium Sulfate 10 meq/ Calcium Gluconate 10 meq/ Multivitamins 10 ml/Chromium / Copper/Manganese/ Seleni/Zn 1 ml/ Total Parenteral Nutrition/Amino Acids/ Dextrose/ Fat Emulsion Intravenous 1,512 ml @ 63 mls/hr TPN CONT IV Last administered on 12/09/16 22:48; Start 12/09/16 at 22:00; Stop 12/10/16 at 21:59; Status DC Sodium Chloride 40 meq/Potassium Chloride 40 meq/ Potassium Phosphate 13.6 mmol/ Magnesium Sulfate 10 meq/ Calcium Gluconate 10 meq/ Multivitamins 10 ml/Chromium / Copper/Manganese/ Seleni/Zn 1 ml/ Total Parenteral Nutrition/Amino Acids/ Dextrose/ Fat Emulsion Intravenous 1,512 ml @ 63 mls/hr TPN CONT IV ; Start at 22:00; Stop 12/11/16 at 13:19; Status DC Methylprednisolone Sodium Succinate (SOLU-Medrol 125MG VIAL) 80 mg BID IV Last administered on 12/12/16t 08:47; Start 12/11/16 at 21:00 Active Scripts Active Prednisone 20 Mg Tablet 50 Mg PO DAILY 5 Days Reported Diazepam 5 Mg Tablet 5 Mg PO HS Simvastatin 5 Mg Tablet 5 Mg PO HS Pepcid (Famotidine) 20 Mg Tablet 20 Mg PO HS Cymbalta (Duloxetine Hcl) 60 Mg Capsule.dr 60 Mg PO DAILY Carvedilol 3.125 Mg Tablet 1 Tab PO BID Klor-Con M20 (Potassium Chloride) 20 Meq Tab.er.prt 20 Meq PO BID Furosemide 20 Mg Tablet 20 Mg PO DAILY Vitals/I & O Vital Sign - Last 24 Hours 12/11/16 12/11/16 12/11/16 12/11/16 10:07 11:04 11:57 12:01 Pulse 80 84 82 Resp 29 18 15 B/P (MAP) 104/44 (64) 104/44 (64) 97/56 (70) Pulse Ox 96 93 96 94 O2 Delivery Nasal Cannula Nasal Cannula O2 Flow Rate 2.0 2.0 2.0 2.0 12/11/16 12/11/16 12/11/16 12/11/16 12:30 12:30 14:04 15:00 Temp 97.9 97.9 Pulse 83 87 80 Resp 25 17 18 B/P (MAP) 86/49 (61) 92/48 (63) 112/63 (79) Pulse Ox 95 91 94 O2 Delivery Nasal Cannula Room Air O2 Flow Rate 2.0 2.0 2.0 12/11/16 12/11/16 12/11/16 12/11/16 15:45 17:00 20:15 21:00 Pulse 76 B/P (MAP) 106/56 Pulse Ox 96 95 O2 Delivery Nasal Cannula Nasal Cannula Nasal Cannula O2 Flow Rate 2.0 2.0 2.0 12/11/16 12/11/16 12/12/16 12/12/16 22:02 23:00 03:42 07:00 Temp 97.5 97.7 97.5 97.5 97.7 97.5 Pulse 73 71 69 Resp 22 20 20 16 B/P (MAP) 131/59 (83) 141/75 (97) 136/61 (86) Pulse Ox 95 95 97 O2 Delivery Nasal Cannula 12/12/16 12/12/16 12/12/16 07:08 08:00 08:49 Pulse 69 B/P (MAP) 136/61 Pulse Ox 98 O2 Delivery Nasal Cannula Nasal Cannula O2 Flow Rate 2.0 2.0 Intake and Output 12/11/16 12/11/16 12/12/16 15:00 23:00 07:00 Intake Total 180 ml 230 ml 790 ml Output Total 0 ml Balance 180 ml 230 ml 790 ml TONYA BONILLA MD Dec 12, 2016 09:53
[2016-12-12] MEDS: VANCOMYCIN PER PHARMACY MC PRN (12:33)
[2016-12-12] MEDS: VANCOMYCIN 1.75 GM in IV NORMAL SALINE 500ML BAG 500 ML IV SCH (12:45)
[2016-12-12] MEDS: HYDROcodone/APAP 5/325MG 1 TAB TABLET PO PRN (12:47)
--- NOTE | 2016-12-12 13:23 | PDOC ---
PROGRESS NOTES Subjective Subjective The patient is very hard of hearing but definitely more awake She denied any complaints Objective Objective Vital Signs Date Time Temp Pulse Resp B/P (MAP) Pulse Ox O2 Delivery O2 Flow Rate FiO2 12/12/16 11:15 Nasal Cannula 2.0 12/12/16 11:00 97.9 72 16 125/58 (80) 95 97.9 Intake and Output 12/12/16 07:00 Intake Total 1200 ml Output Total 0 ml Balance 1200 ml Intake Oral 600 ml IV Total 600 ml Output Urine Total 0 ml # Voids 2 # Bowel Movements 1 Physical Exam Abdomen: Normal bowel sounds, Soft, No tenderness, No masses Heart: Regular rate, Normal S1, Normal S2, No murmurs Extremities: No clubbing, No cyanosis, No edema General: Alert, Oriented X3, Cooperative, No acute distress HEENT: Atraumatic, PERRLA, EOMI Lungs: Clear to auscultation MUSCULOSKELETAL: No joint tenderness, Abnormal active ROM of Neck: Supple, No JVD, No thyromegaly Neuro: Normal gait, Normal tone Psych/Mental Status: Mental status NL Diagnosis Other To continue with the current plan of management Plan Plan of Care Problems Medical Problems: (1) Pneumonia Status: Acute Comment Labs Laboratory Tests Test 12/11/16 04:45 White Blood Count 10.7 x10^3/uL (4.0-11.0) Red Blood Count 4.41 x10^6/uL (3.50-5.40) Hemoglobin 12.3 g/dL (12.0-15.5) Hematocrit 38.7 % (36.0-47.0) Mean Corpuscular Volume 88 fL (79-100) Mean Corpuscular Hemoglobin 28 pg (25-35) Mean Corpuscular Hemoglobin Concent 32 g/dL (31-37) Red Cell Distribution Width 14.2 % (11.5-14.5) Platelet Count 319 x10^3/uL (140-400) Neutrophils (%) (Auto) 92 % (31-73) Lymphocytes (%) (Auto) 6 % (24-48) Monocytes (%) (Auto) 2 % (0-9) Eosinophils (%) (Auto) 0 % (0-3) Basophils (%) (Auto) 0 % (0-3) Neutrophils # (Auto) 9.9 x10^3uL (1.8-7.7) Lymphocytes # (Auto) 0.6 x10^3/uL (1.0-4.8) Monocytes # (Auto) 0.2 x10^3/uL (0.0-1.1) Eosinophils # (Auto) 0.0 x10^3/uL (0.0-0.7) Basophils # (Auto) 0.0 x10^3/uL (0.0-0.2) Sodium Level 142 mmol/L (136-145) Potassium Level 4.5 mmol/L (3.5-5.1) Chloride Level 105 mmol/L (98-107) Carbon Dioxide Level 36 mmol/L (21-32) Anion Gap 1 (6-14) Blood Urea Nitrogen 21 mg/dL (7-20) Creatinine 0.5 mg/dL (0.6-1.0) Estimated GFR (Cockcroft-Gault) 120.9 Glucose Level 151 mg/dL (70-99) Calcium Level 8.4 mg/dL (8.5-10.1) Microbiology 12/07/16 Blood Culture - Preliminary, Resulted NO GROWTH AFTER 4 DAYS 12/08/16 Gram Stain - Final, Complete Medications Current Medications Sodium Chloride 1,000 ml @ 1,000 mls/hr 1X ONCE IV Last administered on 19:30; Start 12/07/16 at 19:30; Stop 12/07/16 at 20:29; Status DC Iohexol (Omnipaque 300 Mg/ml) 75 ml 1X ONCE IV Last administered on 12/07/16 20:37; Start 12/07/16 at 20:15; Stop 12/07/16 at 20:17; Status DC Cefepime HCl 1 gm/ Sodium Chloride 50 ml @ 100 mls/hr Q8HRS IV Last administered on 12/12/16 05:40; Start 12/07/16 at 22:00 Vancomycin HCl (Vanco Per Pharmacy) 1 each PRN DAILY PRN MC SEE COMMENTS Last administered on 12/12/16 12:33; Start 12/07/16 at 21:00 Ondansetron HCl (Zofran) 4 mg PRN Q8HRS PRN IV NAUSEA/VOMITING; Start 12/07/16 at 21:00; Stop 12/08/16 at 20:59; Status DC Morphine Sulfate 4 mg PRN Q2HR PRN IV PAIN; Start 12/07/16 at 21:00; Stop at 20:59; Status DC Acetaminophen (Tylenol) 650 mg PRN Q4HRS PRN PO FEVER; Start 12/07/16 at 21:00; Stop 12/08/16 at 20:59; Status DC Vancomycin HCl 2 gm/Sodium Chloride 500 ml @ 250 mls/hr 1X ONCE IV Last administered on 12/07/16 22:08; Start 12/07/16 at 21:30; Stop 12/07/16 at 23:29; Status DC Albuterol/ Ipratropium (Duoneb) 3 ml RTQID NEB Last administered on 12/12/16 11 :15; Start 12/08/16 at 08:00 Albuterol Sulfate (Ventolin Neb Soln) 2.5 mg PRN QID PRN NEB SHORTNESS OF BREATH; Start 12/07/16 at 22:30 Sodium Chloride 1,000 ml @ 75 mls/hr [id number] IV Last administered on 12/10/16 18:26; Start 12/07/16 at 22:30; Stop 12/11/16 at 13:18; Status DC Methylprednisolone Sodium Succinate (SOLU-Medrol 125MG VIAL) 80 mg Q8HRS IV Last administered on 12/11/16 14:40; Start 12/08/16 at 06:00; Stop 12/11/16 at 16: 16; Status DC Carvedilol (Coreg) 3.125 mg BIDWMEALS PO Last administered on 12/12/16 08:49; Start 12/08/16 at 08:00 Diazepam (Valium) 5 mg HS PO Last administered on 12/11/16 20:50; Start at 23:00 Famotidine (Pepcid) 20 mg HS PO Last administered on 12/11/16 20:50; Start 12/07 at 23:00 Furosemide (Lasix) 20 mg DAILY PO Last administered on 12/12/16 08:48; Start at 09:00 Potassium Chloride (Klor-Con) 20 meq BIDWMEALS PO Last administered on 08:47; Start 12/08/16 at 08:00 Simvastatin (Zocor) 5 mg HS PO Last administered on 12/11/16 20:50; Start at 21:00 Duloxetine HCl (Cymbalta) 60 mg DAILY PO Last administered on 12/12/16 08:48; Start 12/08/16 at 09:00 Acetaminophen/ Hydrocodone Bitart (Lortab 5/325) 1 tab PRN Q4HRS PRN PO MILD PAIN Last administered on 12/12/16 12:47; Start 12/07/16 at 22:15 Enoxaparin Sodium (Lovenox 40mg Syringe) 40 mg Q24H SQ Last administered on 12/08 00:21; Start 12/07/16 at 22:30; Stop 12/08/16 at 10:29; Status DC Vancomycin HCl 1.75 gm/Sodium Chloride 500 ml @ 250 mls/hr Q12H IV Last administered on 12/12/16 12:45; Start 12/08/16 at 10:00 Vancomycin HCl 1 each 1X ONCE MC ; Start 12/09/16 at 09:30; Stop 12/09/16 at 09: 31; Status DC Enoxaparin Sodium (Lovenox 40mg Syringe) 40 mg BID SQ Last administered on 08:46; Start 12/08/16 at 21:00 Amino Acids/ Glycerin/ Electrolytes 1,000 ml @ 80 mls/hr [id number] IV ; Start 12/09/16 at 10:30; Stop 12/09/16 at 21:59; Status DC Info 1 each PRN DAILY PRN MC SEE COMMENTS Last administered on 12/11/16 10:50; Start 12/09/16 at 10:30; Stop 12/11/16 at 13:18; Status DC Sodium Chloride 40 meq/Potassium Chloride 40 meq/ Potassium Phosphate 13.6 mmol/ Magnesium Sulfate 10 meq/ Calcium Gluconate 10 meq/ Multivitamins 10 ml/Chromium / Copper/Manganese/ Seleni/Zn 1 ml/ Total Parenteral Nutrition/Amino Acids/ Dextrose/ Fat Emulsion Intravenous 1,512 ml @ 63 mls/hr TPN CONT IV Last administered on 12/09/16 22:48; Start 12/09/16 at 22:00; Stop 12/10/16 at 21:59; Status DC Sodium Chloride 40 meq/Potassium Chloride 40 meq/ Potassium Phosphate 13.6 mmol/ Magnesium Sulfate 10 meq/ Calcium Gluconate 10 meq/ Multivitamins 10 ml/Chromium / Copper/Manganese/ Seleni/Zn 1 ml/ Total Parenteral Nutrition/Amino Acids/ Dextrose/ Fat Emulsion Intravenous 1,512 ml @ 63 mls/hr TPN CONT IV ; Start at 22:00; Stop 12/11/16 at 13:19; Status DC Methylprednisolone Sodium Succinate (SOLU-Medrol 125MG VIAL) 80 mg BID IV Last administered on 12/12/16t 08:47; Start 12/11/16 at 21:00 Active Scripts Active Prednisone 20 Mg Tablet 50 Mg PO DAILY 5 Days Reported Diazepam 5 Mg Tablet 5 Mg PO HS Simvastatin 5 Mg Tablet 5 Mg PO HS Pepcid (Famotidine) 20 Mg Tablet 20 Mg PO HS Cymbalta (Duloxetine Hcl) 60 Mg Capsule.dr 60 Mg PO DAILY Carvedilol 3.125 Mg Tablet 1 Tab PO BID Klor-Con M20 (Potassium Chloride) 20 Meq Tab.er.prt 20 Meq PO BID Furosemide 20 Mg Tablet 20 Mg PO DAILY Vitals/I & O Vital Sign - Last 24 Hours 12/11/16 12/11/16 12/11/16 12/11/16 14:04 15:00 15:45 17:00 Temp 97.9 97.9 Pulse 87 80 76 Resp 17 18 B/P (MAP) 92/48 (63) 112/63 (79) 106/56 Pulse Ox 91 94 96 O2 Delivery Room Air Nasal Cannula O2 Flow Rate 2.0 2.0 12/11/16 12/11/16 12/11/16 12/11/16 20:15 21:00 22:02 23:00 Temp 97.5 97.5 Pulse 73 Resp 22 20 B/P (MAP) 131/59 (83) Pulse Ox 95 95 O2 Delivery Nasal Cannula Nasal Cannula Nasal Cannula O2 Flow Rate 2.0 2.0 12/12/16 12/12/16 12/12/16 12/12/16 03:42 07:00 07:08 08:00 Temp 97.7 97.5 97.7 97.5 Pulse 71 69 Resp 20 16 B/P (MAP) 141/75 (97) 136/61 (86) Pulse Ox 95 97 98 O2 Delivery Nasal Cannula Nasal Cannula O2 Flow Rate 2.0 2.0 12/12/16 12/12/16 12/12/16 08:49 11:00 11:15 Temp 97.9 97.9 Pulse 69 72 Resp 16 B/P (MAP) 136/61 125/58 (80) Pulse Ox 95 O2 Delivery Nasal Cannula O2 Flow Rate 2.0 Intake and Output 12/11/16 12/11/16 12/12/16 15:00 23:00 07:00 Intake Total 180 ml 230 ml 790 ml Output Total 0 ml Balance 180 ml 230 ml 790 ml GEOVANNA BARRON MD Dec 12, 2016 13:23
--- NOTE | 2016-12-12 16:18 | PDOC ---
PULMONARY PROGRESS NOTES Subjective PT ON 02 N/C NO COMPLAINTS Vitals Vital Signs Date Time Temp Pulse Resp B/P (MAP) Pulse Ox O2 Delivery O2 Flow Rate FiO2 12/12/16 15:10 95 Nasal Cannula 2.0 12/12/16 14:45 97.5 73 18 131/74 (93) 97.5 ROS: No Nausea, No Chest Pain, No Abdominal Pain, No Increase Cough General: Alert Lungs: Clear Cardiovascular: S1 Abdomen: Soft Neuro Exam: Alert Extremities: No Edema Labs Laboratory Tests Test 12/11/16 04:45 White Blood Count 10.7 x10^3/uL (4.0-11.0) Red Blood Count 4.41 x10^6/uL (3.50-5.40) Hemoglobin 12.3 g/dL (12.0-15.5) Hematocrit 38.7 % (36.0-47.0) Mean Corpuscular Volume 88 fL (79-100) Mean Corpuscular Hemoglobin 28 pg (25-35) Mean Corpuscular Hemoglobin Concent 32 g/dL (31-37) Red Cell Distribution Width 14.2 % (11.5-14.5) Platelet Count 319 x10^3/uL (140-400) Neutrophils (%) (Auto) 92 % (31-73) Lymphocytes (%) (Auto) 6 % (24-48) Monocytes (%) (Auto) 2 % (0-9) Eosinophils (%) (Auto) 0 % (0-3) Basophils (%) (Auto) 0 % (0-3) Neutrophils # (Auto) 9.9 x10^3uL (1.8-7.7) Lymphocytes # (Auto) 0.6 x10^3/uL (1.0-4.8) Monocytes # (Auto) 0.2 x10^3/uL (0.0-1.1) Eosinophils # (Auto) 0.0 x10^3/uL (0.0-0.7) Basophils # (Auto) 0.0 x10^3/uL (0.0-0.2) Sodium Level 142 mmol/L (136-145) Potassium Level 4.5 mmol/L (3.5-5.1) Chloride Level 105 mmol/L (98-107) Carbon Dioxide Level 36 mmol/L (21-32) Anion Gap 1 (6-14) Blood Urea Nitrogen 21 mg/dL (7-20) Creatinine 0.5 mg/dL (0.6-1.0) Estimated GFR (Cockcroft-Gault) 120.9 Glucose Level 151 mg/dL (70-99) Calcium Level 8.4 mg/dL (8.5-10.1) Medications Active Scripts Medications Dose Route/Sig Max Daily Dose Days Date Category Prednisone 20 Mg Tablet 50 Mg PO DAILY 5 07/09/16 Rx Diazepam 5 Mg Tablet 5 Mg PO HS 07/06/16 Reported Simvastatin 5 Mg Tablet 5 Mg PO HS 07/06/16 Reported Pepcid (Famotidine) 20 Mg Tablet 20 Mg PO HS 07/06/16 Reported Cymbalta (Duloxetine Hcl) 60 Mg Capsule.dr 60 Mg PO DAILY 07/06/16 Reported Carvedilol 3.125 Mg Tablet 1 Tab PO BID 07/06/16 Reported Klor-Con M20 (Potassium Chloride) 20 Meq Tab.er.prt 20 Meq PO BID 07/06/16 Reported Furosemide 20 Mg Tablet 20 Mg PO DAILY 07/06/16 Reported Comments IMPRESSION: 1. Mild cardiomegaly. 2. Mild ongoing bilateral infrahilar atelectasis and/or pneumonitis. Impression . 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 PT DOING BETTER OK TO TRANSFER SPOKE WITH RN LOOKS GOOD DOING WELL ON 2 LITER PRN BIPAP NO NEED FOR BIPAP QHS UNLESS PT IN DISTRESS ANTIBX STEROIDS DVT AND GI PROPH MELISSA GRIFFIN MD Dec 12, 2016 16:18
[2016-12-12] MEDS: SIMVASTATIN 10 MG TABLET PO SCH (21:08)
[2016-12-12] MEDS: diazePAM 5 MG TABLET PO SCH (21:09)
[2016-12-12] MEDS: FAMOTIDINE 20 MG TABLET. PO SCH (21:09)
[2016-12-13 02:54] VITALS: BP 129/64
[2016-12-13] MEDS: CEFEPIME HCL 1 GM in IV NORMAL SALINE 50ML 50 ML IV SCH ×3 (05:28→21:19)
[2016-12-13 06:36] LABS: BASO % 0 % (0-3); EOS % 0 % (0-3); HEMATOCRIT 37.9 % (36.0-47.0); HEMOGLOBIN 12.3 g/dL (12.0-15.5); LYMPH # 1.6 x10^3/uL (1.0-4.8); LYMPH % 16 % (24-48); MEAN CORPUSCULAR HEMOGLOBIN 28 pg (25-35); MEAN CORPUSCULAR HGB CONC 32 g/dL (31-37); MEAN CORPUSCULAR VOLUME 86 fL (79-100); MONO % 7 % (0-9); NEUT % 76 % (31-73); PLATELET COUNT 278 x10^3/uL (140-400); RED BLOOD COUNT 4.41 x10^6/uL (3.50-5.40); RED CELL DISTRIBUTION WIDTH 14.4 % (11.5-14.5); WHITE BLOOD COUNT 9.9 x10^3/uL (4.0-11.0)
[2016-12-13 06:48] LABS: ALBUMIN 2.3 g/dL (3.4-5.0); ALBUMIN/GLOBULIN RATIO 0.8 (1.0-1.7); CALCIUM 8.2 mg/dL (8.5-10.1); CREATININE 0.4 mg/dL (0.6-1.0); GFR 156.5; POTASSIUM 4.1 mmol/L (3.5-5.1); TOTAL BILIRUBIN 0.3 mg/dL (0.2-1.0); TOTAL PROTEIN 5.1 g/dL (6.4-8.2)
[2016-12-13 07:08] VITALS: BP 149/47
[2016-12-13] MEDS: IPRATRPIUM/ALBUTEROL 0.5/2.5MG 3 ML NEBU. NEB SCH ×4 (07:47→19:36)
--- NOTE | 2016-12-13 08:08 | RAD ---
Examination: Single frontal view chest. History: History of respiratory failure. Comparison: 12/12/2016. Findings: Left-sided PICC line in place. Mild cardiomegaly. Minimal bibasal lung atelectasis. Impression: 1. Unchanged mild bibasal lung atelectasis. 2. Mild cardio megaly unchanged.
[2016-12-13] MEDS: DULoxetine HCL 30 MG CAPSULE.DR PO SCH (08:40)
[2016-12-13] MEDS: POTASSIUM CHLORIDE 20 MEQ TABLET.ER. PO SCH ×2 (08:41→17:35)
[2016-12-13] MEDS: predniSONE 20 MG TABLET PO SCH (08:41)
[2016-12-13] MEDS: FUROSEMIDE 20 MG TABLET PO SCH (08:41)
[2016-12-13] MEDS: CARVEDILOL 3.125 MG TABLET. PO SCH ×2 (08:41→17:35)
[2016-12-13] MEDS: ENOXAPARIN 40 MG/0.4 ML SYRINGE. SQ SCH ×2 (08:42→21:22)
--- NOTE | 2016-12-13 10:00 | PDOC ---
PROGRESS NOTES Subjective Subjective No new complaints. Objective Objective Vital Signs Date Time Temp Pulse Resp B/P (MAP) Pulse Ox O2 Delivery O2 Flow Rate FiO2 12/13/16 08:41 72 149/47 12/13/16 07:55 97 Nasal Cannula 2.0 12/13/16 07:08 97.5 19 97.5 Intake and Output 12/13/16 07:00 Intake Total 1000 ml Balance 1000 ml Intake Oral 1000 ml # Voids 6 Physical Exam Physical Exam She is alert,eating breakfast in bed and does not seem to be in any acute distress.She continues to be dependent for mobility. Assessment Assessment Problems Medical Problems: (1) Pneumonia Status: Acute Plan [facility]. Comment Review of Relevant I have reviewed the following items rivas (where applicable) has been applied. Labs Laboratory Tests Test 12/13/16 05:30 White Blood Count 9.9 x10^3/uL (4.0-11.0) Red Blood Count 4.41 x10^6/uL (3.50-5.40) Hemoglobin 12.3 g/dL (12.0-15.5) Hematocrit 37.9 % (36.0-47.0) Mean Corpuscular Volume 86 fL (79-100) Mean Corpuscular Hemoglobin 28 pg (25-35) Mean Corpuscular Hemoglobin Concent 32 g/dL (31-37) Red Cell Distribution Width 14.4 % (11.5-14.5) Platelet Count 278 x10^3/uL (140-400) Neutrophils (%) (Auto) 76 % (31-73) Lymphocytes (%) (Auto) 16 % (24-48) Monocytes (%) (Auto) 7 % (0-9) Eosinophils (%) (Auto) 0 % (0-3) Basophils (%) (Auto) 0 % (0-3) Neutrophils # (Auto) 7.5 x10^3uL (1.8-7.7) Lymphocytes # (Auto) 1.6 x10^3/uL (1.0-4.8) Monocytes # (Auto) 0.7 x10^3/uL (0.0-1.1) Eosinophils # (Auto) 0.0 x10^3/uL (0.0-0.7) Basophils # (Auto) 0.0 x10^3/uL (0.0-0.2) Sodium Level 142 mmol/L (136-145) Potassium Level 4.1 mmol/L (3.5-5.1) Chloride Level 104 mmol/L (98-107) Carbon Dioxide Level 38 mmol/L (21-32) Anion Gap 0 (6-14) Blood Urea Nitrogen 20 mg/dL (7-20) Creatinine 0.4 mg/dL (0.6-1.0) Estimated GFR (Cockcroft-Gault) 156.5 BUN/Creatinine Ratio 50 (6-20) Glucose Level 89 mg/dL (70-99) Calcium Level 8.2 mg/dL (8.5-10.1) Total Bilirubin 0.3 mg/dL (0.2-1.0) Aspartate Amino Transf (AST/SGOT) 37 U/L (15-37) Alanine Aminotransferase (ALT/SGPT) 101 U/L (14-59) Alkaline Phosphatase 51 U/L (46-116) Total Protein 5.1 g/dL (6.4-8.2) Albumin 2.3 g/dL (3.4-5.0) Albumin/Globulin Ratio 0.8 (1.0-1.7) Laboratory Tests Test 12/13/16 05:30 White Blood Count 9.9 x10^3/uL (4.0-11.0) Red Blood Count 4.41 x10^6/uL (3.50-5.40) Hemoglobin 12.3 g/dL (12.0-15.5) Hematocrit 37.9 % (36.0-47.0) Mean Corpuscular Volume 86 fL (79-100) Mean Corpuscular Hemoglobin 28 pg (25-35) Mean Corpuscular Hemoglobin Concent 32 g/dL (31-37) Red Cell Distribution Width 14.4 % (11.5-14.5) Platelet Count 278 x10^3/uL (140-400) Neutrophils (%) (Auto) 76 % (31-73) Lymphocytes (%) (Auto) 16 % (24-48) Monocytes (%) (Auto) 7 % (0-9) Eosinophils (%) (Auto) 0 % (0-3) Basophils (%) (Auto) 0 % (0-3) Neutrophils # (Auto) 7.5 x10^3uL (1.8-7.7) Lymphocytes # (Auto) 1.6 x10^3/uL (1.0-4.8) Monocytes # (Auto) 0.7 x10^3/uL (0.0-1.1) Eosinophils # (Auto) 0.0 x10^3/uL (0.0-0.7) Basophils # (Auto) 0.0 x10^3/uL (0.0-0.2) Sodium Level 142 mmol/L (136-145) Potassium Level 4.1 mmol/L (3.5-5.1) Chloride Level 104 mmol/L (98-107) Carbon Dioxide Level 38 mmol/L (21-32) Anion Gap 0 (6-14) Blood Urea Nitrogen 20 mg/dL (7-20) Creatinine 0.4 mg/dL (0.6-1.0) Estimated GFR (Cockcroft-Gault) 156.5 BUN/Creatinine Ratio 50 (6-20) Glucose Level 89 mg/dL (70-99) Calcium Level 8.2 mg/dL (8.5-10.1) Total Bilirubin 0.3 mg/dL (0.2-1.0) Aspartate Amino Transf (AST/SGOT) 37 U/L (15-37) Alanine Aminotransferase (ALT/SGPT) 101 U/L (14-59) Alkaline Phosphatase 51 U/L (46-116) Total Protein 5.1 g/dL (6.4-8.2) Albumin 2.3 g/dL (3.4-5.0) Albumin/Globulin Ratio 0.8 (1.0-1.7) Microbiology 12/07/16 Blood Culture - Final, Complete NO GROWTH AFTER 5 DAYS 12/08/16 Gram Stain - Final, Complete Medications Current Medications Sodium Chloride 1,000 ml @ 1,000 mls/hr 1X ONCE IV Last administered on 19:30; Start 12/07/16 at 19:30; Stop 12/07/16 at 20:29; Status DC Iohexol (Omnipaque 300 Mg/ml) 75 ml 1X ONCE IV Last administered on 12/07/16 20:37; Start 12/07/16 at 20:15; Stop 12/07/16 at 20:17; Status DC Cefepime HCl 1 gm/ Sodium Chloride 50 ml @ 100 mls/hr Q8HRS IV Last administered on 12/13/16 05:28; Start 12/07/16 at 22:00 Vancomycin HCl (Vanco Per Pharmacy) 1 each PRN DAILY PRN MC SEE COMMENTS Last administered on 12/12/16 12:33; Start 12/07/16 at 21:00; Stop 12/12/16 at 16:21; Status DC Ondansetron HCl (Zofran) 4 mg PRN Q8HRS PRN IV NAUSEA/VOMITING; Start 12/07/16 at 21:00; Stop 12/08/16 at 20:59; Status DC Morphine Sulfate 4 mg PRN Q2HR PRN IV PAIN; Start 12/07/16 at 21:00; Stop at 20:59; Status DC Acetaminophen (Tylenol) 650 mg PRN Q4HRS PRN PO FEVER; Start 12/07/16 at 21:00; Stop 12/08/16 at 20:59; Status DC Vancomycin HCl 2 gm/Sodium Chloride 500 ml @ 250 mls/hr 1X ONCE IV Last administered on 12/07/16 22:08; Start 12/07/16 at 21:30; Stop 12/07/16 at 23:29; Status DC Albuterol/ Ipratropium (Duoneb) 3 ml RTQID NEB Last administered on 12/13/16 07 :47; Start 12/08/16 at 08:00 Albuterol Sulfate (Ventolin Neb Soln) 2.5 mg PRN QID PRN NEB SHORTNESS OF BREATH; Start 12/07/16 at 22:30 Sodium Chloride 1,000 ml @ 75 mls/hr [id number] IV Last administered on 12/10/16 18:26; Start 12/07/16 at 22:30; Stop 12/11/16 at 13:18; Status DC Methylprednisolone Sodium Succinate (SOLU-Medrol 125MG VIAL) 80 mg Q8HRS IV Last administered on 12/11/16 14:40; Start 12/08/16 at 06:00; Stop 12/11/16 at 16: 16; Status DC Carvedilol (Coreg) 3.125 mg BIDWMEALS PO Last administered on 12/13/16 08:41; Start 12/08/16 at 08:00 Diazepam (Valium) 5 mg HS PO Last administered on 12/12/16 21:09; Start at 23:00 Famotidine (Pepcid) 20 mg HS PO Last administered on 12/12/16 21:09; Start 12/07 at 23:00 Furosemide (Lasix) 20 mg DAILY PO Last administered on 12/13/16 08:41; Start at 09:00 Potassium Chloride (Klor-Con) 20 meq BIDWMEALS PO Last administered on 08:41; Start 12/08/16 at 08:00 Simvastatin (Zocor) 5 mg HS PO Last administered on 12/12/16 21:08; Start at 21:00 Duloxetine HCl (Cymbalta) 60 mg DAILY PO Last administered on 12/13/16 08:40; Start 12/08/16 at 09:00 Acetaminophen/ Hydrocodone Bitart (Lortab 5/325) 1 tab PRN Q4HRS PRN PO MILD PAIN Last administered on 12/12/16 12:47; Start 12/07/16 at 22:15 Enoxaparin Sodium (Lovenox 40mg Syringe) 40 mg Q24H SQ Last administered on 12/08 00:21; Start 12/07/16 at 22:30; Stop 12/08/16 at 10:29; Status DC Vancomycin HCl 1.75 gm/Sodium Chloride 500 ml @ 250 mls/hr Q12H IV Last administered on 12/12/16 12:45; Start 12/08/16 at 10:00; Stop 12/12/16 at 16:17; Status DC Vancomycin HCl 1 each 1X ONCE MC ; Start 12/09/16 at 09:30; Stop 12/09/16 at 09: 31; Status DC Enoxaparin Sodium (Lovenox 40mg Syringe) 40 mg BID SQ Last administered on 08:42; Start 12/08/16 at 21:00 Amino Acids/ Glycerin/ Electrolytes 1,000 ml @ 80 mls/hr [id number] IV ; Start 12/09/16 at 10:30; Stop 12/09/16 at 21:59; Status DC Info 1 each PRN DAILY PRN MC SEE COMMENTS Last administered on 12/11/16 10:50; Start 12/09/16 at 10:30; Stop 12/11/16 at 13:18; Status DC Sodium Chloride 40 meq/Potassium Chloride 40 meq/ Potassium Phosphate 13.6 mmol/ Magnesium Sulfate 10 meq/ Calcium Gluconate 10 meq/ Multivitamins 10 ml/Chromium / Copper/Manganese/ Seleni/Zn 1 ml/ Total Parenteral Nutrition/Amino Acids/ Dextrose/ Fat Emulsion Intravenous 1,512 ml @ 63 mls/hr TPN CONT IV Last administered on 12/09/16 22:48; Start 12/09/16 at 22:00; Stop 12/10/16 at 21:59; Status DC Sodium Chloride 40 meq/Potassium Chloride 40 meq/ Potassium Phosphate 13.6 mmol/ Magnesium Sulfate 10 meq/ Calcium Gluconate 10 meq/ Multivitamins 10 ml/Chromium / Copper/Manganese/ Seleni/Zn 1 ml/ Total Parenteral Nutrition/Amino Acids/ Dextrose/ Fat Emulsion Intravenous 1,512 ml @ 63 mls/hr TPN CONT IV ; Start at 22:00; Stop 12/11/16 at 13:19; Status DC Methylprednisolone Sodium Succinate (SOLU-Medrol 125MG VIAL) 80 mg BID IV Last administered on 12/12/16 08:47; Start 12/11/16 at 21:00; Stop 12/12/16 at 16:17; Status DC Prednisone (Prednisone) 20 mg DAILY PO Last administered on 12/13/16 08:41; Start 12/13/16 at 09:00 Active Scripts Active Prednisone 20 Mg Tablet 50 Mg PO DAILY 5 Days Reported Diazepam 5 Mg Tablet 5 Mg PO HS Simvastatin 5 Mg Tablet 5 Mg PO HS Pepcid (Famotidine) 20 Mg Tablet 20 Mg PO HS Cymbalta (Duloxetine Hcl) 60 Mg Capsule.dr 60 Mg PO DAILY Carvedilol 3.125 Mg Tablet 1 Tab PO BID Klor-Con M20 (Potassium Chloride) 20 Meq Tab.er.prt 20 Meq PO BID Furosemide 20 Mg Tablet 20 Mg PO DAILY Vitals/I & O Vital Sign - Last 24 Hours 12/12/16 12/12/16 12/12/16 12/12/16 11:00 11:15 15:00 15:06 Temp 97.9 97.5 97.9 97.5 Pulse 72 73 Resp 16 18 B/P (MAP) 125/58 (80) 131/74 (93) Pulse Ox 95 95 O2 Delivery Nasal Cannula Nasal Cannula O2 Flow Rate 2.0 2.0 12/12/16 12/12/16 12/12/16 12/12/16 15:10 17:49 19:18 19:43 Temp 97.9 97.9 Pulse 73 73 Resp 20 B/P (MAP) 131/74 114/47 (69) Pulse Ox 95 96 O2 Delivery Nasal Cannula Nasal Cannula Nasal Cannula O2 Flow Rate 2.0 2.0 12/12/16 12/12/16 12/13/16 12/13/16 20:00 23:00 02:54 07:08 Temp 98.3 98.1 97.5 98.3 98.1 97.5 Pulse 69 64 72 Resp 20 20 19 B/P (MAP) 126/65 (85) 129/64 (85) 149/47 (81) Pulse Ox 96 96 99 O2 Delivery Nasal Cannula Nasal Cannula Nasal Cannula Nasal Cannula O2 Flow Rate 2.0 3.0 2.0 2.0 12/13/16 12/13/16 07:55 08:41 Pulse 72 B/P (MAP) 149/47 Pulse Ox 97 O2 Delivery Nasal Cannula O2 Flow Rate 2.0 Intake and Output 12/12/16 12/12/16 12/13/16 15:00 23:00 07:00 Intake Total 1000 ml Balance 1000 ml TONYA BONILLA MD Dec 13, 2016 10:00
[2016-12-13 11:11] VITALS: BP 119/55
[2016-12-13 15:06] VITALS: BP 112/55
--- NOTE | 2016-12-13 15:56 | PDOC ---
SUBJECTIVE Subjective The patient is more awake and alert t very [place] [employer] denied any complaints OBJECTIVE Objective Looked well definitely more awake alert responding properly Vital Signs Vital Signs Date Time Temp Pulse Resp B/P (MAP) Pulse Ox O2 Delivery O2 Flow Rate FiO2 12/13/16 15:20 Nasal Cannula 2.0 12/13/16 15:06 97.7 81 19 112/55 (74) 96 Nasal Cannula 2.0 97.7 12/13/16 11:26 Nasal Cannula 2.0 12/13/16 11:11 97.5 61 19 119/55 (76) 97 Nasal Cannula 2.0 97.5 12/13/16 08:41 72 149/47 12/13/16 08:00 Nasal Cannula 2.0 12/13/16 07:55 97 Nasal Cannula 2.0 12/13/16 07:08 97.5 72 19 149/47 (81) 99 Nasal Cannula 2.0 97.5 12/13/16 02:54 98.1 64 20 129/64 (85) 96 Nasal Cannula 2.0 98.1 12/12/16 23:00 98.3 69 20 126/65 (85) 96 Nasal Cannula 3.0 98.3 12/12/16 20:00 Nasal Cannula 2.0 12/12/16 19:43 97.9 73 20 114/47 (69) 96 Nasal Cannula 97.9 12/12/16 19:18 Nasal Cannula 2.0 12/12/16 17:49 73 131/74 I & O Intake and Output 12/13/16 07:00 Intake Total 1000 ml Balance 1000 ml Intake Oral 1000 ml # Voids 6 PHYSICAL EXAM Physical Exam VSS PE is stable and unchanged ASSESSMENT/PLAN Assessment/Plan acute respiratory failure resolved AMS resolved Problems: COMMENT Lab Laboratory Tests Test 12/13/16 05:30 White Blood Count 9.9 x10^3/uL (4.0-11.0) Red Blood Count 4.41 x10^6/uL (3.50-5.40) Hemoglobin 12.3 g/dL (12.0-15.5) Hematocrit 37.9 % (36.0-47.0) Mean Corpuscular Volume 86 fL (79-100) Mean Corpuscular Hemoglobin 28 pg (25-35) Mean Corpuscular Hemoglobin Concent 32 g/dL (31-37) Red Cell Distribution Width 14.4 % (11.5-14.5) Platelet Count 278 x10^3/uL (140-400) Neutrophils (%) (Auto) 76 % (31-73) Lymphocytes (%) (Auto) 16 % (24-48) Monocytes (%) (Auto) 7 % (0-9) Eosinophils (%) (Auto) 0 % (0-3) Basophils (%) (Auto) 0 % (0-3) Neutrophils # (Auto) 7.5 x10^3uL (1.8-7.7) Lymphocytes # (Auto) 1.6 x10^3/uL (1.0-4.8) Monocytes # (Auto) 0.7 x10^3/uL (0.0-1.1) Eosinophils # (Auto) 0.0 x10^3/uL (0.0-0.7) Basophils # (Auto) 0.0 x10^3/uL (0.0-0.2) Sodium Level 142 mmol/L (136-145) Potassium Level 4.1 mmol/L (3.5-5.1) Chloride Level 104 mmol/L (98-107) Carbon Dioxide Level 38 mmol/L (21-32) Anion Gap 0 (6-14) Blood Urea Nitrogen 20 mg/dL (7-20) Creatinine 0.4 mg/dL (0.6-1.0) Estimated GFR (Cockcroft-Gault) 156.5 BUN/Creatinine Ratio 50 (6-20) Glucose Level 89 mg/dL (70-99) Calcium Level 8.2 mg/dL (8.5-10.1) Total Bilirubin 0.3 mg/dL (0.2-1.0) Aspartate Amino Transf (AST/SGOT) 37 U/L (15-37) Alanine Aminotransferase (ALT/SGPT) 101 U/L (14-59) Alkaline Phosphatase 51 U/L (46-116) Total Protein 5.1 g/dL (6.4-8.2) Albumin 2.3 g/dL (3.4-5.0) Albumin/Globulin Ratio 0.8 (1.0-1.7) GEOVANNA BARRON MD Dec 13, 2016 15:55
--- NOTE | 2016-12-13 16:24 | PDOC ---
PULMONARY PROGRESS NOTES Subjective PT ON 02 N/C NO COMPLAINTS Vitals Vital Signs Date Time Temp Pulse Resp B/P (MAP) Pulse Ox O2 Delivery O2 Flow Rate FiO2 12/13/16 15:20 Nasal Cannula 2.0 12/13/16 15:06 97.7 81 19 112/55 (74) 96 97.7 ROS: No Nausea, No Chest Pain, No Abdominal Pain, No Increase Cough General: Alert Lungs: Clear Cardiovascular: S1 Abdomen: Soft Neuro Exam: Alert Extremities: No Edema Labs Laboratory Tests Test 12/13/16 05:30 White Blood Count 9.9 x10^3/uL (4.0-11.0) Red Blood Count 4.41 x10^6/uL (3.50-5.40) Hemoglobin 12.3 g/dL (12.0-15.5) Hematocrit 37.9 % (36.0-47.0) Mean Corpuscular Volume 86 fL (79-100) Mean Corpuscular Hemoglobin 28 pg (25-35) Mean Corpuscular Hemoglobin Concent 32 g/dL (31-37) Red Cell Distribution Width 14.4 % (11.5-14.5) Platelet Count 278 x10^3/uL (140-400) Neutrophils (%) (Auto) 76 % (31-73) Lymphocytes (%) (Auto) 16 % (24-48) Monocytes (%) (Auto) 7 % (0-9) Eosinophils (%) (Auto) 0 % (0-3) Basophils (%) (Auto) 0 % (0-3) Neutrophils # (Auto) 7.5 x10^3uL (1.8-7.7) Lymphocytes # (Auto) 1.6 x10^3/uL (1.0-4.8) Monocytes # (Auto) 0.7 x10^3/uL (0.0-1.1) Eosinophils # (Auto) 0.0 x10^3/uL (0.0-0.7) Basophils # (Auto) 0.0 x10^3/uL (0.0-0.2) Sodium Level 142 mmol/L (136-145) Potassium Level 4.1 mmol/L (3.5-5.1) Chloride Level 104 mmol/L (98-107) Carbon Dioxide Level 38 mmol/L (21-32) Anion Gap 0 (6-14) Blood Urea Nitrogen 20 mg/dL (7-20) Creatinine 0.4 mg/dL (0.6-1.0) Estimated GFR (Cockcroft-Gault) 156.5 BUN/Creatinine Ratio 50 (6-20) Glucose Level 89 mg/dL (70-99) Calcium Level 8.2 mg/dL (8.5-10.1) Total Bilirubin 0.3 mg/dL (0.2-1.0) Aspartate Amino Transf (AST/SGOT) 37 U/L (15-37) Alanine Aminotransferase (ALT/SGPT) 101 U/L (14-59) Alkaline Phosphatase 51 U/L (46-116) Total Protein 5.1 g/dL (6.4-8.2) Albumin 2.3 g/dL (3.4-5.0) Albumin/Globulin Ratio 0.8 (1.0-1.7) Laboratory Tests Test 12/13/16 05:30 White Blood Count 9.9 x10^3/uL (4.0-11.0) Red Blood Count 4.41 x10^6/uL (3.50-5.40) Hemoglobin 12.3 g/dL (12.0-15.5) Hematocrit 37.9 % (36.0-47.0) Mean Corpuscular Volume 86 fL (79-100) Mean Corpuscular Hemoglobin 28 pg (25-35) Mean Corpuscular Hemoglobin Concent 32 g/dL (31-37) Red Cell Distribution Width 14.4 % (11.5-14.5) Platelet Count 278 x10^3/uL (140-400) Neutrophils (%) (Auto) 76 % (31-73) Lymphocytes (%) (Auto) 16 % (24-48) Monocytes (%) (Auto) 7 % (0-9) Eosinophils (%) (Auto) 0 % (0-3) Basophils (%) (Auto) 0 % (0-3) Neutrophils # (Auto) 7.5 x10^3uL (1.8-7.7) Lymphocytes # (Auto) 1.6 x10^3/uL (1.0-4.8) Monocytes # (Auto) 0.7 x10^3/uL (0.0-1.1) Eosinophils # (Auto) 0.0 x10^3/uL (0.0-0.7) Basophils # (Auto) 0.0 x10^3/uL (0.0-0.2) Sodium Level 142 mmol/L (136-145) Potassium Level 4.1 mmol/L (3.5-5.1) Chloride Level 104 mmol/L (98-107) Carbon Dioxide Level 38 mmol/L (21-32) Anion Gap 0 (6-14) Blood Urea Nitrogen 20 mg/dL (7-20) Creatinine 0.4 mg/dL (0.6-1.0) Estimated GFR (Cockcroft-Gault) 156.5 BUN/Creatinine Ratio 50 (6-20) Glucose Level 89 mg/dL (70-99) Calcium Level 8.2 mg/dL (8.5-10.1) Total Bilirubin 0.3 mg/dL (0.2-1.0) Aspartate Amino Transf (AST/SGOT) 37 U/L (15-37) Alanine Aminotransferase (ALT/SGPT) 101 U/L (14-59) Alkaline Phosphatase 51 U/L (46-116) Total Protein 5.1 g/dL (6.4-8.2) Albumin 2.3 g/dL (3.4-5.0) Albumin/Globulin Ratio 0.8 (1.0-1.7) Medications Active Scripts Medications Dose Route/Sig Max Daily Dose Days Date Category Prednisone 20 Mg Tablet 50 Mg PO DAILY 5 07/09/16 Rx Diazepam 5 Mg Tablet 5 Mg PO HS 07/06/16 Reported Simvastatin 5 Mg Tablet 5 Mg PO HS 07/06/16 Reported Pepcid (Famotidine) 20 Mg Tablet 20 Mg PO HS 07/06/16 Reported Cymbalta (Duloxetine Hcl) 60 Mg Capsule.dr 60 Mg PO DAILY 07/06/16 Reported Carvedilol 3.125 Mg Tablet 1 Tab PO BID 07/06/16 Reported Klor-Con M20 (Potassium Chloride) 20 Meq Tab.er.prt 20 Meq PO BID 07/06/16 Reported Furosemide 20 Mg Tablet 20 Mg PO DAILY 07/06/16 Reported Comments IMPRESSION: 1. Mild cardiomegaly. 2. Mild ongoing bilateral infrahilar atelectasis and/or pneumonitis. Impression . 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 PRN BIPAP PT DOING BETTER LOOKS GOOD DOING WELL ON 2 LITER NO NEED FOR BIPAP QHS UNLESS PT IN DISTRESS ANTIBX PRED 20 DVT AND GI PROPH MELISSA GRIFFIN MD Dec 13, 2016 16:24
[2016-12-13] MEDS: HYDROcodone/APAP 5/325MG 1 TAB TABLET PO PRN ×2 (17:38→21:29)
[2016-12-13 19:42] VITALS: BP 103/47
[2016-12-13] MEDS: diazePAM 5 MG TABLET PO SCH (21:19)
[2016-12-13] MEDS: FAMOTIDINE 20 MG TABLET. PO SCH (21:19)
[2016-12-13] MEDS: SIMVASTATIN 10 MG TABLET PO SCH (21:20)
[2016-12-13 23:35] VITALS: BP 109/43
[2016-12-14] MEDS: CEFEPIME HCL 1 GM in IV NORMAL SALINE 50ML 50 ML IV SCH ×3 (05:37→21:11)
[2016-12-14 06:28] LABS: ALBUMIN 2.2 g/dL (3.4-5.0); ALBUMIN/GLOBULIN RATIO 0.8 (1.0-1.7); ALK PHOS 47 U/L (46-116); ALT (SGPT) 70 U/L (14-59); AST (SGOT) 17 U/L (15-37); BLOOD UREA NITROGEN 19 mg/dL (7-20); BUN/CREATININE RATIO 48 (6-20); CALCIUM 7.4 mg/dL (8.5-10.1); CARBON DIOXIDE 40 mmol/L (21-32); CHLORIDE 105 mmol/L (98-107); CREATININE 0.4 mg/dL (0.6-1.0); GFR 156.5; GLUCOSE 91 mg/dL (70-99); POTASSIUM 4.4 mmol/L (3.5-5.1); SODIUM 143 mmol/L (136-145); TOTAL BILIRUBIN 0.3 mg/dL (0.2-1.0); TOTAL PROTEIN 4.9 g/dL (6.4-8.2)
[2016-12-14 06:31] LABS: HEMATOCRIT 37.9 % (36.0-47.0); HEMOGLOBIN 12.4 g/dL (12.0-15.5); RED BLOOD COUNT 4.4 x10^6/uL (3.50-5.40); RED CELL DISTRIBUTION WIDTH 14.2 % (11.5-14.5); WHITE BLOOD COUNT 8.1 x10^3/uL (4.0-11.0)
[2016-12-14 07:05] VITALS: BP 97/51
[2016-12-14] MEDS: IPRATRPIUM/ALBUTEROL 0.5/2.5MG 3 ML NEBU. NEB SCH ×4 (07:31→19:36)
[2016-12-14] MEDS: CARVEDILOL 3.125 MG TABLET. PO SCH ×2 (08:00→16:05)
[2016-12-14] MEDS: predniSONE 20 MG TABLET PO SCH (08:34)
[2016-12-14] MEDS: DULoxetine HCL 30 MG CAPSULE.DR PO SCH (08:34)
[2016-12-14] MEDS: FUROSEMIDE 20 MG TABLET PO SCH (08:34)
[2016-12-14] MEDS: POTASSIUM CHLORIDE 20 MEQ TABLET.ER. PO SCH ×2 (08:35→16:04)
[2016-12-14] MEDS: ENOXAPARIN 40 MG/0.4 ML SYRINGE. SQ SCH ×2 (08:38→21:11)
--- NOTE | 2016-12-14 09:25 | RAD ---
Examination: Single frontal view the chest History: History of respiratory failure Comparison: 12/13/2016 Findings Low lung volumes and technique accentuate heart size and pulmonary vascularity. Mild cardiomegaly unchanged. Left-sided PICC line is unchanged. Minimal bibasal lung airspace opacities. Impression: Minimal bibasal lung atelectasis.
[2016-12-14 11:13] VITALS: BP 98/50
--- NOTE | 2016-12-14 13:23 | PN ---
PROGRESS NOTES Subjective Subjective more awake alert denied any complaints The nursing staff did not voice any concern Objective Objective Vital Signs Date Time Temp Pulse Resp B/P (MAP) Pulse Ox O2 Delivery O2 Flow Rate FiO2 12/14/16 11:13 98.2 76 18 98/50 (66) 87 Nasal Cannula 2.0 98.2 Intake and Output 12/14/16 07:00 Intake Total 1830 ml Output Total 100 ml Balance 1730 ml Intake Oral 1830 ml Stool Total 100 ml # Voids 7 Physical Exam Physical Exam Afebrile Hemodynamiclly stable Mostlt bed bound COMMENT The patient has improved She is definitely more awake alert To continue with I V Cefipime Diagnosis DIAGNOSIS Acute respiratory failure with hypoxia and hypercapnia HCAP Metabolic encephalopathy COPD CAD asymptomatic Left Mastectomy colostomy for diverticular perforation PROBLEM LIST Problems Medical Problems: (1) Pneumonia Status: Acute Assessment Assessment Problems Medical Problems: (1) Pneumonia Status: Acute Plan Plan of Care To continue i v antibiotcs continue oxygen supplementation Comment Labs Laboratory Tests Test 12/13/16 05:30 12/14/16 05:40 White Blood Count 9.9 x10^3/uL (4.0-11.0) 8.1 x10^3/uL (4.0-11.0) Red Blood Count 4.41 x10^6/uL (3.50-5.40) 4.40 x10^6/uL (3.50-5.40) Hemoglobin 12.3 g/dL (12.0-15.5) 12.4 g/dL (12.0-15.5) Hematocrit 37.9 % (36.0-47.0) 37.9 % (36.0-47.0) Mean Corpuscular Volume 86 fL (79-100) 86 fL (79-100) Mean Corpuscular Hemoglobin 28 pg (25-35) 28 pg (25-35) Mean Corpuscular Hemoglobin Concent 32 g/dL (31-37) 33 g/dL (31-37) Red Cell Distribution Width 14.4 % (11.5-14.5) 14.2 % (11.5-14.5) Platelet Count 278 x10^3/uL (140-400) 253 x10^3/uL (140-400) Neutrophils (%) (Auto) 76 % (31-73) Lymphocytes (%) (Auto) 16 % (24-48) Monocytes (%) (Auto) 7 % (0-9) Eosinophils (%) (Auto) 0 % (0-3) Basophils (%) (Auto) 0 % (0-3) Neutrophils # (Auto) 7.5 x10^3uL (1.8-7.7) Lymphocytes # (Auto) 1.6 x10^3/uL (1.0-4.8) Monocytes # (Auto) 0.7 x10^3/uL (0.0-1.1) Eosinophils # (Auto) 0.0 x10^3/uL (0.0-0.7) Basophils # (Auto) 0.0 x10^3/uL (0.0-0.2) Sodium Level 142 mmol/L (136-145) 143 mmol/L (136-145) Potassium Level 4.1 mmol/L (3.5-5.1) 4.4 mmol/L (3.5-5.1) Chloride Level 104 mmol/L (98-107) 105 mmol/L (98-107) Carbon Dioxide Level 38 mmol/L (21-32) 40 mmol/L (21-32) Anion Gap 0 (6-14) (6-14) Blood Urea Nitrogen 20 mg/dL (7-20) 19 mg/dL (7-20) Creatinine 0.4 mg/dL (0.6-1.0) 0.4 mg/dL (0.6-1.0) Estimated GFR (Cockcroft-Gault) 156.5 156.5 BUN/Creatinine Ratio 50 (6-20) 48 (6-20) Glucose Level 89 mg/dL (70-99) 91 mg/dL (70-99) Calcium Level 8.2 mg/dL (8.5-10.1) 7.4 mg/dL (8.5-10.1) Total Bilirubin 0.3 mg/dL (0.2-1.0) 0.3 mg/dL (0.2-1.0) Aspartate Amino Transf (AST/SGOT) 37 U/L (15-37) 17 U/L (15-37) Alanine Aminotransferase (ALT/SGPT) 101 U/L (14-59) 70 U/L (14-59) Alkaline Phosphatase 51 U/L (46-116) 47 U/L (46-116) Total Protein 5.1 g/dL (6.4-8.2) 4.9 g/dL (6.4-8.2) Albumin 2.3 g/dL (3.4-5.0) 2.2 g/dL (3.4-5.0) Albumin/Globulin Ratio 0.8 (1.0-1.7) 0.8 (1.0-1.7) Laboratory Tests Test 12/14/16 05:40 White Blood Count 8.1 x10^3/uL (4.0-11.0) Red Blood Count 4.40 x10^6/uL (3.50-5.40) Hemoglobin 12.4 g/dL (12.0-15.5) Hematocrit 37.9 % (36.0-47.0) Mean Corpuscular Volume 86 fL (79-100) Mean Corpuscular Hemoglobin 28 pg (25-35) Mean Corpuscular Hemoglobin Concent 33 g/dL (31-37) Red Cell Distribution Width 14.2 % (11.5-14.5) Platelet Count 253 x10^3/uL (140-400) Sodium Level 143 mmol/L (136-145) Potassium Level 4.4 mmol/L (3.5-5.1) Chloride Level 105 mmol/L (98-107) Carbon Dioxide Level 40 mmol/L (21-32) Anion Gap (6-14) Blood Urea Nitrogen 19 mg/dL (7-20) Creatinine 0.4 mg/dL (0.6-1.0) Estimated GFR (Cockcroft-Gault) 156.5 BUN/Creatinine Ratio 48 (6-20) Glucose Level 91 mg/dL (70-99) Calcium Level 7.4 mg/dL (8.5-10.1) Total Bilirubin 0.3 mg/dL (0.2-1.0) Aspartate Amino Transf (AST/SGOT) 17 U/L (15-37) Alanine Aminotransferase (ALT/SGPT) 70 U/L (14-59) Alkaline Phosphatase 47 U/L (46-116) Total Protein 4.9 g/dL (6.4-8.2) Albumin 2.2 g/dL (3.4-5.0) Albumin/Globulin Ratio 0.8 (1.0-1.7) Microbiology 12/07/16 Blood Culture - Final, Complete NO GROWTH AFTER 5 DAYS 12/08/16 Gram Stain - Final, Complete Medications Current Medications Sodium Chloride 1,000 ml @ 1,000 mls/hr 1X ONCE IV Last administered on 19:30; Start 12/07/16 at 19:30; Stop 12/07/16 at 20:29; Status DC Iohexol (Omnipaque 300 Mg/ml) 75 ml 1X ONCE IV Last administered on 12/07/16 20:37; Start 12/07/16 at 20:15; Stop 12/07/16 at 20:17; Status DC Cefepime HCl 1 gm/ Sodium Chloride 50 ml @ 100 mls/hr Q8HRS IV Last administered on 12/14/16 13:14; Start 12/07/16 at 22:00 Vancomycin HCl (Vanco Per Pharmacy) 1 each PRN DAILY PRN MC SEE COMMENTS Last administered on 12/12/16 12:33; Start 12/07/16 at 21:00; Stop 12/12/16 at 16:21; Status DC Ondansetron HCl (Zofran) 4 mg PRN Q8HRS PRN IV NAUSEA/VOMITING; Start 12/07/16 at 21:00; Stop 12/08/16 at 20:59; Status DC Morphine Sulfate 4 mg PRN Q2HR PRN IV PAIN; Start 12/07/16 at 21:00; Stop at 20:59; Status DC Acetaminophen (Tylenol) 650 mg PRN Q4HRS PRN PO FEVER; Start 12/07/16 at 21:00; Stop 12/08/16 at 20:59; Status DC Vancomycin HCl 2 gm/Sodium Chloride 500 ml @ 250 mls/hr 1X ONCE IV Last administered on 12/07/16 22:08; Start 12/07/16 at 21:30; Stop 12/07/16 at 23:29; Status DC Albuterol/ Ipratropium (Duoneb) 3 ml RTQID NEB Last administered on 12/14/16 11 :06; Start 12/08/16 at 08:00 Albuterol Sulfate (Ventolin Neb Soln) 2.5 mg PRN QID PRN NEB SHORTNESS OF BREATH; Start 12/07/16 at 22:30 Sodium Chloride 1,000 ml @ 75 mls/hr [id number] IV Last administered on 12/10/16 18:26; Start 12/07/16 at 22:30; Stop 12/11/16 at 13:18; Status DC Methylprednisolone Sodium Succinate (SOLU-Medrol 125MG VIAL) 80 mg Q8HRS IV Last administered on 12/11/16 14:40; Start 12/08/16 at 06:00; Stop 12/11/16 at 16: 16; Status DC Carvedilol (Coreg) 3.125 mg BIDWMEALS PO Last administered on 12/13/16 17:35; Start 12/08/16 at 08:00 Diazepam (Valium) 5 mg HS PO Last administered on 12/13/16 21:19; Start at 23:00 Famotidine (Pepcid) 20 mg HS PO Last administered on 12/13/16 21:19; Start 12/07 at 23:00 Furosemide (Lasix) 20 mg DAILY PO Last administered on 12/14/16 08:34; Start at 09:00 Potassium Chloride (Klor-Con) 20 meq BIDWMEALS PO Last administered on 08:35; Start 12/08/16 at 08:00 Simvastatin (Zocor) 5 mg HS PO Last administered on 12/13/16 21:20; Start at 21:00 Duloxetine HCl (Cymbalta) 60 mg DAILY PO Last administered on 12/14/16 08:34; Start 12/08/16 at 09:00 Acetaminophen/ Hydrocodone Bitart (Lortab 5/325) 1 tab PRN Q4HRS PRN PO MILD PAIN Last administered on 12/13/16 21:29; Start 12/07/16 at 22:15 Enoxaparin Sodium (Lovenox 40mg Syringe) 40 mg Q24H SQ Last administered on 12/08 00:21; Start 12/07/16 at 22:30; Stop 12/08/16 at 10:29; Status DC Vancomycin HCl 1.75 gm/Sodium Chloride 500 ml @ 250 mls/hr Q12H IV Last administered on 12/12/16 12:45; Start 12/08/16 at 10:00; Stop 12/12/16 at 16:17; Status DC Vancomycin HCl 1 each 1X ONCE MC ; Start 12/09/16 at 09:30; Stop 12/09/16 at 09: 31; Status DC Enoxaparin Sodium (Lovenox 40mg Syringe) 40 mg BID SQ Last administered on 08:38; Start 12/08/16 at 21:00 Amino Acids/ Glycerin/ Electrolytes 1,000 ml @ 80 mls/hr [id number] IV ; Start 12/09/16 at 10:30; Stop 12/09/16 at 21:59; Status DC Info 1 each PRN DAILY PRN MC SEE COMMENTS Last administered on 12/11/16 10:50; Start 12/09/16 at 10:30; Stop 12/11/16 at 13:18; Status DC Sodium Chloride 40 meq/Potassium Chloride 40 meq/ Potassium Phosphate 13.6 mmol/ Magnesium Sulfate 10 meq/ Calcium Gluconate 10 meq/ Multivitamins 10 ml/Chromium / Copper/Manganese/ Seleni/Zn 1 ml/ Total Parenteral Nutrition/Amino Acids/ Dextrose/ Fat Emulsion Intravenous 1,512 ml @ 63 mls/hr TPN CONT IV Last administered on 12/09/16 22:48; Start 12/09/16 at 22:00; Stop 12/10/16 at 21:59; Status DC Sodium Chloride 40 meq/Potassium Chloride 40 meq/ Potassium Phosphate 13.6 mmol/ Magnesium Sulfate 10 meq/ Calcium Gluconate 10 meq/ Multivitamins 10 ml/Chromium / Copper/Manganese/ Seleni/Zn 1 ml/ Total Parenteral Nutrition/Amino Acids/ Dextrose/ Fat Emulsion Intravenous 1,512 ml @ 63 mls/hr TPN CONT IV ; Start at 22:00; Stop 12/11/16 at 13:19; Status DC Methylprednisolone Sodium Succinate (SOLU-Medrol 125MG VIAL) 80 mg BID IV Last administered on 12/12/16 08:47; Start 12/11/16 at 21:00; Stop 12/12/16 at 16:17; Status DC Prednisone (Prednisone) 20 mg DAILY PO Last administered on 12/14/16 08:34; Start 12/13/16 at 09:00 Active Scripts Active Prednisone 20 Mg Tablet 50 Mg PO DAILY 5 Days Reported Diazepam 5 Mg Tablet 5 Mg PO HS Simvastatin 5 Mg Tablet 5 Mg PO HS Pepcid (Famotidine) 20 Mg Tablet 20 Mg PO HS Cymbalta (Duloxetine Hcl) 60 Mg Capsule.dr 60 Mg PO DAILY Carvedilol 3.125 Mg Tablet 1 Tab PO BID Klor-Con M20 (Potassium Chloride) 20 Meq Tab.er.prt 20 Meq PO BID Furosemide 20 Mg Tablet 20 Mg PO DAILY Vitals/I & O Vital Sign - Last 24 Hours 12/13/16 12/13/16 12/13/16 12/13/16 15:06 15:20 17:35 17:38 Temp 97.7 97.7 Pulse 81 81 Resp 19 16 B/P (MAP) 112/55 (74) 112/55 Pulse Ox 96 96 O2 Delivery Nasal Cannula Nasal Cannula Nasal Cannula O2 Flow Rate 2.0 2.0 2.0 12/13/16 12/13/16 12/13/16 12/13/16 18:38 19:36 19:42 20:10 Temp 98.3 98.3 Pulse 72 Resp 16 B/P (MAP) 103/47 (65) Pulse Ox 95 94 O2 Delivery Nasal Cannula Nasal Cannula Nasal Cannula Nasal Cannula O2 Flow Rate 2.0 2.0 2.0 12/13/16 12/14/16 12/14/16 12/14/16 23:35 03:35 07:05 07:32 Temp 97.6 97.9 97.6 97.9 Pulse 70 73 Resp 16 16 17 B/P (MAP) 109/43 (65) 97/51 (66) Pulse Ox 95 96 98 O2 Delivery Room Air Nasal Cannula Room Air Nasal Cannula O2 Flow Rate 2.0 2.0 12/14/16 12/14/16 12/14/16 12/14/16 08:00 08:00 11:08 11:13 Temp 98.2 98.2 Pulse 73 76 Resp 18 B/P (MAP) 97/51 98/50 (66) Pulse Ox 94 87 O2 Delivery Nasal Cannula Nasal Cannula Nasal Cannula O2 Flow Rate 2.0 2.0 2.0 Intake and Output 12/13/16 12/13/16 12/14/16 15:00 23:00 07:00 Intake Total 1250 ml 580 ml Output Total 100 ml Balance 1150 ml 580 ml ANDERSON,AHMED M MD Dec 14, 2016 13:23
[2016-12-14 15:04] VITALS: BP 116/68
--- NOTE | 2016-12-14 16:44 | PDOC ---
PULMONARY PROGRESS NOTES Subjective PT ON 02 N/C NO COMPLAINTS Vitals Vital Signs Date Time Temp Pulse Resp B/P (MAP) Pulse Ox O2 Delivery O2 Flow Rate FiO2 12/14/16 16:05 90 116/68 12/14/16 15:04 98.7 18 95 Nasal Cannula 2.0 98.7 ROS: No Nausea, No Chest Pain, No Abdominal Pain, No Increase Cough General: Alert Lungs: Clear Cardiovascular: S1 Abdomen: Soft Neuro Exam: Alert Extremities: No Edema Labs Laboratory Tests Test 12/13/16 05:30 12/14/16 05:40 White Blood Count 9.9 x10^3/uL (4.0-11.0) 8.1 x10^3/uL (4.0-11.0) Red Blood Count 4.41 x10^6/uL (3.50-5.40) 4.40 x10^6/uL (3.50-5.40) Hemoglobin 12.3 g/dL (12.0-15.5) 12.4 g/dL (12.0-15.5) Hematocrit 37.9 % (36.0-47.0) 37.9 % (36.0-47.0) Mean Corpuscular Volume 86 fL (79-100) 86 fL (79-100) Mean Corpuscular Hemoglobin 28 pg (25-35) 28 pg (25-35) Mean Corpuscular Hemoglobin Concent 32 g/dL (31-37) 33 g/dL (31-37) Red Cell Distribution Width 14.4 % (11.5-14.5) 14.2 % (11.5-14.5) Platelet Count 278 x10^3/uL (140-400) 253 x10^3/uL (140-400) Neutrophils (%) (Auto) 76 % (31-73) Lymphocytes (%) (Auto) 16 % (24-48) Monocytes (%) (Auto) 7 % (0-9) Eosinophils (%) (Auto) 0 % (0-3) Basophils (%) (Auto) 0 % (0-3) Neutrophils # (Auto) 7.5 x10^3uL (1.8-7.7) Lymphocytes # (Auto) 1.6 x10^3/uL (1.0-4.8) Monocytes # (Auto) 0.7 x10^3/uL (0.0-1.1) Eosinophils # (Auto) 0.0 x10^3/uL (0.0-0.7) Basophils # (Auto) 0.0 x10^3/uL (0.0-0.2) Sodium Level 142 mmol/L (136-145) 143 mmol/L (136-145) Potassium Level 4.1 mmol/L (3.5-5.1) 4.4 mmol/L (3.5-5.1) Chloride Level 104 mmol/L (98-107) 105 mmol/L (98-107) Carbon Dioxide Level 38 mmol/L (21-32) 40 mmol/L (21-32) Anion Gap 0 (6-14) (6-14) Blood Urea Nitrogen 20 mg/dL (7-20) 19 mg/dL (7-20) Creatinine 0.4 mg/dL (0.6-1.0) 0.4 mg/dL (0.6-1.0) Estimated GFR (Cockcroft-Gault) 156.5 156.5 BUN/Creatinine Ratio 50 (6-20) 48 (6-20) Glucose Level 89 mg/dL (70-99) 91 mg/dL (70-99) Calcium Level 8.2 mg/dL (8.5-10.1) 7.4 mg/dL (8.5-10.1) Total Bilirubin 0.3 mg/dL (0.2-1.0) 0.3 mg/dL (0.2-1.0) Aspartate Amino Transf (AST/SGOT) 37 U/L (15-37) 17 U/L (15-37) Alanine Aminotransferase (ALT/SGPT) 101 U/L (14-59) 70 U/L (14-59) Alkaline Phosphatase 51 U/L (46-116) 47 U/L (46-116) Total Protein 5.1 g/dL (6.4-8.2) 4.9 g/dL (6.4-8.2) Albumin 2.3 g/dL (3.4-5.0) 2.2 g/dL (3.4-5.0) Albumin/Globulin Ratio 0.8 (1.0-1.7) 0.8 (1.0-1.7) Laboratory Tests Test 7/9/17 05:40 White Blood Count 8.1 x10^3/uL (4.0-11.0) Red Blood Count 4.40 x10^6/uL (3.50-5.40) Hemoglobin 12.4 g/dL (12.0-15.5) Hematocrit 37.9 % (36.0-47.0) Mean Corpuscular Volume 86 fL (79-100) Mean Corpuscular Hemoglobin 28 pg (25-35) Mean Corpuscular Hemoglobin Concent 33 g/dL (31-37) Red Cell Distribution Width 14.2 % (11.5-14.5) Platelet Count 253 x10^3/uL (140-400) Sodium Level 143 mmol/L (136-145) Potassium Level 4.4 mmol/L (3.5-5.1) Chloride Level 105 mmol/L (98-107) Carbon Dioxide Level 40 mmol/L (21-32) Anion Gap (6-14) Blood Urea Nitrogen 19 mg/dL (7-20) Creatinine 0.4 mg/dL (0.6-1.0) Estimated GFR (Cockcroft-Gault) 156.5 BUN/Creatinine Ratio 48 (6-20) Glucose Level 91 mg/dL (70-99) Calcium Level 7.4 mg/dL (8.5-10.1) Total Bilirubin 0.3 mg/dL (0.2-1.0) Aspartate Amino Transf (AST/SGOT) 17 U/L (15-37) Alanine Aminotransferase (ALT/SGPT) 70 U/L (14-59) Alkaline Phosphatase 47 U/L (46-116) Total Protein 4.9 g/dL (6.4-8.2) Albumin 2.2 g/dL (3.4-5.0) Albumin/Globulin Ratio 0.8 (1.0-1.7) Medications Active Scripts Medications Dose Route/Sig Max Daily Dose Days Date Category Prednisone 20 Mg Tablet 50 Mg PO DAILY 5 07/09/16 Rx Diazepam 5 Mg Tablet 5 Mg PO HS 07/06/16 Reported Simvastatin 5 Mg Tablet 5 Mg PO HS 07/06/16 Reported Pepcid (Famotidine) 20 Mg Tablet 20 Mg PO HS 07/06/16 Reported Cymbalta (Duloxetine Hcl) 60 Mg Capsule.dr 60 Mg PO DAILY 1/29/17 Reported Carvedilol 3.125 Mg Tablet 1 Tab PO BID 07/06/16 Reported Klor-Con M20 (Potassium Chloride) 20 Meq Tab.er.prt 20 Meq PO BID 07/06/16 Reported Furosemide 20 Mg Tablet 20 Mg PO DAILY 07/06/16 Reported Comments IMPRESSION: 1. Mild cardiomegaly. 2. Mild ongoing bilateral infrahilar atelectasis and/or pneumonitis. Impression . 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 RESP STATUS IS COMPENSATED PRN BIPAP PT DOING BETTER LOOKS GOOD DOING WELL ON 2 LITER NO NEED FOR BIPAP QHS UNLESS PT IN DISTRESS ANTIBX PRED 20 DVT AND GI PROPH MELISSA GRIFFIN MD Dec 14, 2016 16:44
[2016-12-14] MEDS: HYDROcodone/APAP 5/325MG 1 TAB TABLET PO PRN (17:57)
[2016-12-14 19:58] VITALS: BP 121/69
[2016-12-14] MEDS: FAMOTIDINE 20 MG TABLET. PO SCH (21:09)
[2016-12-14] MEDS: diazePAM 5 MG TABLET PO SCH (21:09)
[2016-12-14] MEDS: SIMVASTATIN 10 MG TABLET PO SCH (21:10)
[2016-12-14 23:03] VITALS: BP 117/52
[2016-12-15] MEDS: CEFEPIME HCL 1 GM in IV NORMAL SALINE 50ML 50 ML IV SCH ×3 (05:33→21:45)
[2016-12-15] MEDS: HYDROcodone/APAP 5/325MG 1 TAB TABLET PO PRN (06:34)
[2016-12-15 07:32] VITALS: BP 112/49
--- NOTE | 2016-12-15 07:45 | RAD ---
Portable chest, 2016: History: Respiratory failure Comparison is made to a study from 12/14/2016. A left PICC remains in place extending into the superior vena cava. The heart is mildly enlarged. The pulmonary vascularity is normal. There are mild ongoing streaky basilar opacities compatible with atelectasis and/or scarring. No new pulmonary abnormality is seen. There is no evidence of pleural fluid. IMPRESSION: No significant change since yesterday's study.
[2016-12-15] MEDS: IPRATRPIUM/ALBUTEROL 0.5/2.5MG 3 ML NEBU. NEB SCH ×4 (07:56→19:53)
[2016-12-15] MEDS: ENOXAPARIN 40 MG/0.4 ML SYRINGE. SQ SCH ×2 (09:23→21:43)
[2016-12-15] MEDS: POTASSIUM CHLORIDE 20 MEQ TABLET.ER. PO SCH ×2 (09:24→17:49)
[2016-12-15] MEDS: FUROSEMIDE 20 MG TABLET PO SCH (09:24)
[2016-12-15] MEDS: CARVEDILOL 3.125 MG TABLET. PO SCH ×2 (09:24→17:48)
[2016-12-15] MEDS: DULoxetine HCL 30 MG CAPSULE.DR PO SCH (09:24)
[2016-12-15] MEDS: predniSONE 20 MG TABLET PO SCH (09:24)
--- NOTE | 2016-12-15 10:25 | PDOC ---
PROGRESS NOTES Subjective Subjective She does not feel as good today. Objective Objective Vital Signs Date Time Temp Pulse Resp B/P (MAP) Pulse Ox O2 Delivery O2 Flow Rate FiO2 12/15/16 09:24 70 112/49 12/15/16 09:22 96 Nasal Cannula 1.5 12/15/16 07:32 97.9 20 97.9 Intake and Output 12/15/16 07:00 Intake Total 1940 ml Balance 1940 ml Intake Oral 1940 ml # Voids 9 Physical Exam Physical Exam She is alert and and does not seem to be in any distress.She is supine in bed and receiving oxygen by nasal canula. Assessment Assessment Problems Medical Problems: (1) Pneumonia Status: Acute Plan Plan of Care To NH when medically stable. Comment Review of Relevant I have reviewed the following items rivas (where applicable) has been applied. Labs Laboratory Tests Test 12/14/16 05:40 White Blood Count 8.1 x10^3/uL (4.0-11.0) Red Blood Count 4.40 x10^6/uL (3.50-5.40) Hemoglobin 12.4 g/dL (12.0-15.5) Hematocrit 37.9 % (36.0-47.0) Mean Corpuscular Volume 86 fL (79-100) Mean Corpuscular Hemoglobin 28 pg (25-35) Mean Corpuscular Hemoglobin Concent 33 g/dL (31-37) Red Cell Distribution Width 14.2 % (11.5-14.5) Platelet Count 253 x10^3/uL (140-400) Sodium Level 143 mmol/L (136-145) Potassium Level 4.4 mmol/L (3.5-5.1) Chloride Level 105 mmol/L (98-107) Carbon Dioxide Level 40 mmol/L (21-32) Anion Gap (6-14) Blood Urea Nitrogen 19 mg/dL (7-20) Creatinine 0.4 mg/dL (0.6-1.0) Estimated GFR (Cockcroft-Gault) 156.5 BUN/Creatinine Ratio 48 (6-20) Glucose Level 91 mg/dL (70-99) Calcium Level 7.4 mg/dL (8.5-10.1) Total Bilirubin 0.3 mg/dL (0.2-1.0) Aspartate Amino Transf (AST/SGOT) 17 U/L (15-37) Alanine Aminotransferase (ALT/SGPT) 70 U/L (14-59) Alkaline Phosphatase 47 U/L (46-116) Total Protein 4.9 g/dL (6.4-8.2) Albumin 2.2 g/dL (3.4-5.0) Albumin/Globulin Ratio 0.8 (1.0-1.7) Microbiology 12/07/16 Blood Culture - Final, Complete NO GROWTH AFTER 5 DAYS 12/08/16 Gram Stain - Final, Complete Medications Current Medications Sodium Chloride 1,000 ml @ 1,000 mls/hr 1X ONCE IV Last administered on 19:30; Start 12/07/16 at 19:30; Stop 12/07/16 at 20:29; Status DC Iohexol (Omnipaque 300 Mg/ml) 75 ml 1X ONCE IV Last administered on 12/07/16 20:37; Start 12/07/16 at 20:15; Stop 12/07/16 at 20:17; Status DC Cefepime HCl 1 gm/ Sodium Chloride 50 ml @ 100 mls/hr Q8HRS IV Last administered on 12/15/16 05:33; Start 12/07/16 at 22:00 Vancomycin HCl (Vanco Per Pharmacy) 1 each PRN DAILY PRN MC SEE COMMENTS Last administered on 12/12/16 12:33; Start 12/07/16 at 21:00; Stop 12/12/16 at 16:21; Status DC Ondansetron HCl (Zofran) 4 mg PRN Q8HRS PRN IV NAUSEA/VOMITING; Start 12/07/16 at 21:00; Stop 12/08/16 at 20:59; Status DC Morphine Sulfate 4 mg PRN Q2HR PRN IV PAIN; Start 12/07/16 at 21:00; Stop at 20:59; Status DC Acetaminophen (Tylenol) 650 mg PRN Q4HRS PRN PO FEVER; Start 12/07/16 at 21:00; Stop 12/08/16 at 20:59; Status DC Vancomycin HCl 2 gm/Sodium Chloride 500 ml @ 250 mls/hr 1X ONCE IV Last administered on 12/07/16 22:08; Start 12/07/16 at 21:30; Stop 12/07/16 at 23:29; Status DC Albuterol/ Ipratropium (Duoneb) 3 ml RTQID NEB Last administered on 12/15/16 07:56; Start 12/08/16 at 08:00 Albuterol Sulfate (Ventolin Neb Soln) 2.5 mg PRN QID PRN NEB SHORTNESS OF BREATH; Start 12/07/16 at 22:30 Sodium Chloride 1,000 ml @ 75 mls/hr [id number] IV Last administered on 12/10/16 18:26; Start 12/07/16 at 22:30; Stop 12/11/16 at 13:18; Status DC Methylprednisolone Sodium Succinate (SOLU-Medrol 125MG VIAL) 80 mg Q8HRS IV Last administered on 12/11/16 14:40; Start 12/08/16 at 06:00; Stop 12/11/16 at 16: 16; Status DC Carvedilol (Coreg) 3.125 mg BIDWMEALS PO Last administered on 12/15/16 09:24; Start 12/08/16 at 08:00 Diazepam (Valium) 5 mg HS PO Last administered on 12/14/16 21:09; Start at 23:00 Famotidine (Pepcid) 20 mg HS PO Last administered on 12/14/16 21:09; Start 12/07 at 23:00 Furosemide (Lasix) 20 mg DAILY PO Last administered on 12/15/16 09:24; Start 12/08/16 at 09:00 Potassium Chloride (Klor-Con) 20 meq BIDWMEALS PO Last administered on 09:24; Start 12/08/16 at 08:00 Simvastatin (Zocor) 5 mg HS PO Last administered on 12/14/16 21:10; Start at 21:00 Duloxetine HCl (Cymbalta) 60 mg DAILY PO Last administered on 12/15/16 09:24; Start 12/08/16 at 09:00 Acetaminophen/ Hydrocodone Bitart (Lortab 5/325) 1 tab PRN Q4HRS PRN PO MILD PAIN Last administered on 12/15/16 06:34; Start 12/07/16 at 22:15 Enoxaparin Sodium (Lovenox 40mg Syringe) 40 mg Q24H SQ Last administered on 12/08 00:21; Start 12/07/16 at 22:30; Stop 12/08/16 at 10:29; Status DC Vancomycin HCl 1.75 gm/Sodium Chloride 500 ml @ 250 mls/hr Q12H IV Last administered on 12/12/16 12:45; Start 12/08/16 at 10:00; Stop 12/12/16 at 16:17; Status DC Vancomycin HCl 1 each 1X ONCE MC ; Start 12/09/16 at 09:30; Stop 12/09/16 at 09: 31; Status DC Enoxaparin Sodium (Lovenox 40mg Syringe) 40 mg BID SQ Last administered on 12/15 09:23; Start 12/08/16 at 21:00 Amino Acids/ Glycerin/ Electrolytes 1,000 ml @ 80 mls/hr [id number] IV ; Start 12/09/16 at 10:30; Stop 12/09/16 at 21:59; Status DC Info 1 each PRN DAILY PRN MC SEE COMMENTS Last administered on 12/11/16 10:50; Start 12/09/16 at 10:30; Stop 12/11/16 at 13:18; Status DC Sodium Chloride 40 meq/Potassium Chloride 40 meq/ Potassium Phosphate 13.6 mmol/ Magnesium Sulfate 10 meq/ Calcium Gluconate 10 meq/ Multivitamins 10 ml/Chromium / Copper/Manganese/ Seleni/Zn 1 ml/ Total Parenteral Nutrition/Amino Acids/ Dextrose/ Fat Emulsion Intravenous 1,512 ml @ 63 mls/hr TPN CONT IV Last administered on 12/09/16 22:48; Start 12/09/16 at 22:00; Stop 12/10/16 at 21:59; Status DC Sodium Chloride 40 meq/Potassium Chloride 40 meq/ Potassium Phosphate 13.6 mmol/ Magnesium Sulfate 10 meq/ Calcium Gluconate 10 meq/ Multivitamins 10 ml/Chromium / Copper/Manganese/ Seleni/Zn 1 ml/ Total Parenteral Nutrition/Amino Acids/ Dextrose/ Fat Emulsion Intravenous 1,512 ml @ 63 mls/hr TPN CONT IV ; Start at 22:00; Stop 12/11/16 at 13:19; Status DC Methylprednisolone Sodium Succinate (SOLU-Medrol 125MG VIAL) 80 mg BID IV Last administered on 12/12/16 08:47; Start 12/11/16 at 21:00; Stop 12/12/16 at 16:17; Status DC Prednisone (Prednisone) 20 mg DAILY PO Last administered on 12/15/16 09:24; Start 12/13/16 at 09:00 Active Scripts Active Prednisone 20 Mg Tablet 50 Mg PO DAILY 5 Days Reported Diazepam 5 Mg Tablet 5 Mg PO HS Simvastatin 5 Mg Tablet 5 Mg PO HS Pepcid (Famotidine) 20 Mg Tablet 20 Mg PO HS Cymbalta (Duloxetine Hcl) 60 Mg Capsule.dr 60 Mg PO DAILY Carvedilol 3.125 Mg Tablet 1 Tab PO BID Klor-Con M20 (Potassium Chloride) 20 Meq Tab.er.prt 20 Meq PO BID Furosemide 20 Mg Tablet 20 Mg PO DAILY Vitals/I & O Vital Sign - Last 24 Hours 12/14/16 12/14/16 12/14/16 12/14/16 11:08 11:13 14:54 15:04 Temp 98.2 98.7 98.2 98.7 Pulse 76 90 Resp 18 18 B/P (MAP) 98/50 (66) 116/68 (84) Pulse Ox 94 87 94 95 O2 Delivery Nasal Cannula Nasal Cannula Nasal Cannula Nasal Cannula O2 Flow Rate 2.0 2.0 2.0 2.0 12/14/16 12/14/16 12/14/16 12/14/16 16:05 17:57 19:38 19:58 Temp 89.0 89.0 Pulse 90 83 Resp 24 B/P (MAP) 116/68 121/69 (86) Pulse Ox 94 93 O2 Delivery Nasal Cannula Nasal Cannula Nasal Cannula O2 Flow Rate 2.0 2.0 2.0 12/14/16 12/14/16 12/15/16 12/15/16 20:15 23:03 03:35 06:34 Temp 98.4 98.4 Pulse 76 Resp 20 20 20 B/P (MAP) 117/52 (73) Pulse Ox 96 O2 Delivery Nasal Cannula Nasal Cannula Nasal Cannula Nasal Cannula O2 Flow Rate 2.0 2.0 1.0 12/15/16 12/15/16 12/15/16 12/15/16 07:32 07:58 08:00 09:22 Temp 97.9 97.9 Pulse 70 Resp 20 B/P (MAP) 112/49 (70) Pulse Ox 95 96 96 O2 Delivery Nasal Cannula Nasal Cannula Nasal Cannula Nasal Cannula O2 Flow Rate 2.0 1.5 1.5 1.5 12/15/16 09:24 Pulse 70 B/P (MAP) 112/49 Intake and Output 12/14/16 12/14/16 12/15/16 15:00 23:00 07:00 Intake Total 1500 ml 440 ml Balance 1500 ml 440 ml TONYA BONILLA MD Dec 15, 2016 10:25
[2016-12-15 10:35] VITALS: BP 103/46
--- NOTE | 2016-12-15 12:25 | PDOC ---
PULMONARY PROGRESS NOTES Subjective PT ON 02 N/C NO COMPLAINTS Vitals Vital Signs Date Time Temp Pulse Resp B/P (MAP) Pulse Ox O2 Delivery O2 Flow Rate FiO2 12/15/16 11:39 96 Nasal Cannula 1.5 12/15/16 10:35 96.4 78 24 103/46 (65) 96.4 ROS: No Nausea, No Chest Pain, No Abdominal Pain, No Increase Cough General: Alert Lungs: Clear Cardiovascular: S1 Abdomen: Soft Neuro Exam: Alert Extremities: No Edema Labs Laboratory Tests Test 12/14/16 05:40 White Blood Count 8.1 x10^3/uL (4.0-11.0) Red Blood Count 4.40 x10^6/uL (3.50-5.40) Hemoglobin 12.4 g/dL (12.0-15.5) Hematocrit 37.9 % (36.0-47.0) Mean Corpuscular Volume 86 fL (79-100) Mean Corpuscular Hemoglobin 28 pg (25-35) Mean Corpuscular Hemoglobin Concent 33 g/dL (31-37) Red Cell Distribution Width 14.2 % (11.5-14.5) Platelet Count 253 x10^3/uL (140-400) Sodium Level 143 mmol/L (136-145) Potassium Level 4.4 mmol/L (3.5-5.1) Chloride Level 105 mmol/L (98-107) Carbon Dioxide Level 40 mmol/L (21-32) Anion Gap (6-14) Blood Urea Nitrogen 19 mg/dL (7-20) Creatinine 0.4 mg/dL (0.6-1.0) Estimated GFR (Cockcroft-Gault) 156.5 BUN/Creatinine Ratio 48 (6-20) Glucose Level 91 mg/dL (70-99) Calcium Level 7.4 mg/dL (8.5-10.1) Total Bilirubin 0.3 mg/dL (0.2-1.0) Aspartate Amino Transf (AST/SGOT) 17 U/L (15-37) Alanine Aminotransferase (ALT/SGPT) 70 U/L (14-59) Alkaline Phosphatase 47 U/L (46-116) Total Protein 4.9 g/dL (6.4-8.2) Albumin 2.2 g/dL (3.4-5.0) Albumin/Globulin Ratio 0.8 (1.0-1.7) Medications Active Scripts Medications Dose Route/Sig Max Daily Dose Days Date Category Prednisone 20 Mg Tablet 50 Mg PO DAILY 5 07/09/16 Rx Diazepam 5 Mg Tablet 5 Mg PO HS 07/06/16 Reported Simvastatin 5 Mg Tablet 5 Mg PO HS 07/06/16 Reported Pepcid (Famotidine) 20 Mg Tablet 20 Mg PO HS 07/06/16 Reported Cymbalta (Duloxetine Hcl) 60 Mg Capsule.dr 60 Mg PO DAILY 07/06/16 Reported Carvedilol 3.125 Mg Tablet 1 Tab PO BID 07/06/16 Reported Klor-Con M20 (Potassium Chloride) 20 Meq Tab.er.prt 20 Meq PO BID 07/06/16 Reported Furosemide 20 Mg Tablet 20 Mg PO DAILY 07/06/16 Reported Comments IMPRESSION: 1. Mild cardiomegaly. 2. Mild ongoing bilateral infrahilar atelectasis and/or pneumonitis. Impression . 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 RESP STATUS IS COMPENSATED PRN BIPAP PT DOING BETTER ON 2 LITER NO NEED FOR BIPAP QHS UNLESS PT IN DISTRESS ANTIBX PRED TAPER DVT AND GI PROPH JENNY TRIPP MD Dec 15, 2016 12:25
--- NOTE | 2016-12-15 13:43 | PN ---
PROGRESS NOTES Subjective Subjective Setting propped up in bed in NAD Denied any complaints Does not want to go back to the retirement and would like to stay here Refused to recognize my credentials Objective Objective Vital Signs Date Time Temp Pulse Resp B/P (MAP) Pulse Ox O2 Delivery O2 Flow Rate FiO2 12/15/16 11:39 96 Nasal Cannula 1.5 12/15/16 10:35 96.4 78 24 103/46 (65) 96.4 Intake and Output 12/15/16 07:00 Intake Total 1940 ml Balance 1940 ml Intake Oral 1940 ml # Voids 9 Physical Exam Physical Exam Vitals stable The rset of physical exam is stable and unchanged COMMENT The patient is definietly better To continue ABX Tapering course of steroids BIPAP as needed Diagnosis DIAGNOSIS A/C HYPOXIC HYPERCAPNIC RESPIRATORY FAILURE AECOPD Pneumonia Morbid obesity/POOJA Breast Cancer PROBLEM LIST Problems Medical Problems: (1) Pneumonia Status: Acute Assessment Assessment Problems Medical Problems: (1) Pneumonia Status: Acute Comment Review of Relevant I have reviewed the following items rivas (where applicable) has been applied. Labs Laboratory Tests Test 12/14/16 05:40 White Blood Count 8.1 x10^3/uL (4.0-11.0) Red Blood Count 4.40 x10^6/uL (3.50-5.40) Hemoglobin 12.4 g/dL (12.0-15.5) Hematocrit 37.9 % (36.0-47.0) Mean Corpuscular Volume 86 fL (79-100) Mean Corpuscular Hemoglobin 28 pg (25-35) Mean Corpuscular Hemoglobin Concent 33 g/dL (31-37) Red Cell Distribution Width 14.2 % (11.5-14.5) Platelet Count 253 x10^3/uL (140-400) Sodium Level 143 mmol/L (136-145) Potassium Level 4.4 mmol/L (3.5-5.1) Chloride Level 105 mmol/L (98-107) Carbon Dioxide Level 40 mmol/L (21-32) Anion Gap (6-14) Blood Urea Nitrogen 19 mg/dL (7-20) Creatinine 0.4 mg/dL (0.6-1.0) Estimated GFR (Cockcroft-Gault) 156.5 BUN/Creatinine Ratio 48 (6-20) Glucose Level 91 mg/dL (70-99) Calcium Level 7.4 mg/dL (8.5-10.1) Total Bilirubin 0.3 mg/dL (0.2-1.0) Aspartate Amino Transf (AST/SGOT) 17 U/L (15-37) Alanine Aminotransferase (ALT/SGPT) 70 U/L (14-59) Alkaline Phosphatase 47 U/L (46-116) Total Protein 4.9 g/dL (6.4-8.2) Albumin 2.2 g/dL (3.4-5.0) Albumin/Globulin Ratio 0.8 (1.0-1.7) Microbiology 12/07/16 Blood Culture - Final, Complete NO GROWTH AFTER 5 DAYS 12/08/16 Gram Stain - Final, Complete Medications Current Medications Sodium Chloride 1,000 ml @ 1,000 mls/hr 1X ONCE IV Last administered on 19:30; Start 12/07/16 at 19:30; Stop 12/07/16 at 20:29; Status DC Iohexol (Omnipaque 300 Mg/ml) 75 ml 1X ONCE IV Last administered on 12/07/16 20:37; Start 12/07/16 at 20:15; Stop 12/07/16 at 20:17; Status DC Cefepime HCl 1 gm/ Sodium Chloride 50 ml @ 100 mls/hr Q8HRS IV Last administered on 12/15/16 05:33; Start 12/07/16 at 22:00 Vancomycin HCl (Vanco Per Pharmacy) 1 each PRN DAILY PRN MC SEE COMMENTS Last administered on 12/12/16 12:33; Start 12/07/16 at 21:00; Stop 12/12/16 at 16:21; Status DC Ondansetron HCl (Zofran) 4 mg PRN Q8HRS PRN IV NAUSEA/VOMITING; Start 12/07/16 at 21:00; Stop 12/08/16 at 20:59; Status DC Morphine Sulfate 4 mg PRN Q2HR PRN IV PAIN; Start 12/07/16 at 21:00; Stop at 20:59; Status DC Acetaminophen (Tylenol) 650 mg PRN Q4HRS PRN PO FEVER; Start 12/07/16 at 21:00; Stop 12/08/16 at 20:59; Status DC Vancomycin HCl 2 gm/Sodium Chloride 500 ml @ 250 mls/hr 1X ONCE IV Last administered on 12/07/16 22:08; Start 12/07/16 at 21:30; Stop 12/07/16 at 23:29; Status DC Albuterol/ Ipratropium (Duoneb) 3 ml RTQID NEB Last administered on 12/15/16 11:37; Start 12/08/16 at 08:00 Albuterol Sulfate (Ventolin Neb Soln) 2.5 mg PRN QID PRN NEB SHORTNESS OF BREATH; Start 12/07/16 at 22:30 Sodium Chloride 1,000 ml @ 75 mls/hr [id number] IV Last administered on 12/10/16 18:26; Start 12/07/16 at 22:30; Stop 12/11/16 at 13:18; Status DC Methylprednisolone Sodium Succinate (SOLU-Medrol 125MG VIAL) 80 mg Q8HRS IV Last administered on 12/11/16 14:40; Start 12/08/16 at 06:00; Stop 12/11/16 at 16: 16; Status DC Carvedilol (Coreg) 3.125 mg BIDWMEALS PO Last administered on 12/15/16 09:24; Start 12/08/16 at 08:00 Diazepam (Valium) 5 mg HS PO Last administered on 12/14/16 21:09; Start at 23:00 Famotidine (Pepcid) 20 mg HS PO Last administered on 12/14/16 21:09; Start 12/07 at 23:00 Furosemide (Lasix) 20 mg DAILY PO Last administered on 12/15/16 09:24; Start 12/08/16 at 09:00 Potassium Chloride (Klor-Con) 20 meq BIDWMEALS PO Last administered on 09:24; Start 12/08/16 at 08:00 Simvastatin (Zocor) 5 mg HS PO Last administered on 12/14/16 21:10; Start at 21:00 Duloxetine HCl (Cymbalta) 60 mg DAILY PO Last administered on 12/15/16 09:24; Start 12/08/16 at 09:00 Acetaminophen/ Hydrocodone Bitart (Lortab 5/325) 1 tab PRN Q4HRS PRN PO MILD PAIN Last administered on 12/15/16 06:34; Start 12/07/16 at 22:15 Enoxaparin Sodium (Lovenox 40mg Syringe) 40 mg Q24H SQ Last administered on 12/08 00:21; Start 12/07/16 at 22:30; Stop 12/08/16 at 10:29; Status DC Vancomycin HCl 1.75 gm/Sodium Chloride 500 ml @ 250 mls/hr Q12H IV Last administered on 12/12/16 12:45; Start 12/08/16 at 10:00; Stop 12/12/16 at 16:17; Status DC Vancomycin HCl 1 each 1X ONCE MC ; Start 12/09/16 at 09:30; Stop 12/09/16 at 09: 31; Status DC Enoxaparin Sodium (Lovenox 40mg Syringe) 40 mg BID SQ Last administered on 12/15 09:23; Start 12/08/16 at 21:00 Amino Acids/ Glycerin/ Electrolytes 1,000 ml @ 80 mls/hr [id number] IV ; Start 12/09/16 at 10:30; Stop 12/09/16 at 21:59; Status DC Info 1 each PRN DAILY PRN MC SEE COMMENTS Last administered on 12/11/16 10:50; Start 12/09/16 at 10:30; Stop 12/11/16 at 13:18; Status DC Sodium Chloride 40 meq/Potassium Chloride 40 meq/ Potassium Phosphate 13.6 mmol/ Magnesium Sulfate 10 meq/ Calcium Gluconate 10 meq/ Multivitamins 10 ml/Chromium / Copper/Manganese/ Seleni/Zn 1 ml/ Total Parenteral Nutrition/Amino Acids/ Dextrose/ Fat Emulsion Intravenous 1,512 ml @ 63 mls/hr TPN CONT IV Last administered on 12/09/16 22:48; Start 12/09/16 at 22:00; Stop 12/10/16 at 21:59; Status DC Sodium Chloride 40 meq/Potassium Chloride 40 meq/ Potassium Phosphate 13.6 mmol/ Magnesium Sulfate 10 meq/ Calcium Gluconate 10 meq/ Multivitamins 10 ml/Chromium / Copper/Manganese/ Seleni/Zn 1 ml/ Total Parenteral Nutrition/Amino Acids/ Dextrose/ Fat Emulsion Intravenous 1,512 ml @ 63 mls/hr TPN CONT IV ; Start at 22:00; Stop 12/11/16 at 13:19; Status DC Methylprednisolone Sodium Succinate (SOLU-Medrol 125MG VIAL) 80 mg BID IV Last administered on 12/12/16 08:47; Start 12/11/16 at 21:00; Stop 12/12/16 at 16:17; Status DC Prednisone (Prednisone) 20 mg DAILY PO Last administered on 12/15/16 09:24; Start 12/13/16 at 09:00 Active Scripts Active Prednisone 20 Mg Tablet 50 Mg PO DAILY 5 Days Reported Diazepam 5 Mg Tablet 5 Mg PO HS Simvastatin 5 Mg Tablet 5 Mg PO HS Pepcid (Famotidine) 20 Mg Tablet 20 Mg PO HS Cymbalta (Duloxetine Hcl) 60 Mg Capsule.dr 60 Mg PO DAILY Carvedilol 3.125 Mg Tablet 1 Tab PO BID Klor-Con M20 (Potassium Chloride) 20 Meq Tab.er.prt 20 Meq PO BID Furosemide 20 Mg Tablet 20 Mg PO DAILY Vitals/I & O Vital Sign - Last 24 Hours 12/14/16 12/14/16 12/14/16 12/14/16 14:54 15:04 16:05 17:57 Temp 98.7 98.7 Pulse 90 90 Resp 18 B/P (MAP) 116/68 (84) 116/68 Pulse Ox 94 95 O2 Delivery Nasal Cannula Nasal Cannula Nasal Cannula O2 Flow Rate 2.0 2.0 2.0 12/14/16 12/14/16 12/14/16 12/14/16 19:38 19:58 20:15 23:03 Temp 89.0 98.4 89.0 98.4 Pulse 83 76 Resp 24 20 B/P (MAP) 121/69 (86) 117/52 (73) Pulse Ox 94 93 96 O2 Delivery Nasal Cannula Nasal Cannula Nasal Cannula Nasal Cannula O2 Flow Rate 2.0 2.0 2.0 12/15/16 12/15/16 12/15/16 12/15/16 03:35 06:34 07:32 07:58 Temp 97.9 97.9 Pulse 70 Resp 20 20 20 B/P (MAP) 112/49 (70) Pulse Ox 95 96 O2 Delivery Nasal Cannula Nasal Cannula Nasal Cannula Nasal Cannula O2 Flow Rate 2.0 1.0 2.0 1.5 12/15/16 12/15/16 12/15/16 12/15/16 08:00 09:22 09:24 10:35 Temp 96.4 96.4 Pulse 70 78 Resp 24 B/P (MAP) 112/49 103/46 (65) Pulse Ox 96 94 O2 Delivery Nasal Cannula Nasal Cannula Nasal Cannula O2 Flow Rate 1.5 1.5 2.0 12/15/16 11:39 Pulse Ox 96 O2 Delivery Nasal Cannula O2 Flow Rate 1.5 Intake and Output 12/14/16 12/14/16 12/15/16 15:00 23:00 07:00 Intake Total 1500 ml 440 ml Balance 1500 ml 440 ml GEOVANNA BARRON MD Dec 15, 2016 13:43
[2016-12-15 15:00] VITALS: BP 125/61
[2016-12-15 19:00] VITALS: BP 103/43
[2016-12-15] MEDS: FAMOTIDINE 20 MG TABLET. PO SCH (21:41)
[2016-12-15] MEDS: diazePAM 5 MG TABLET PO SCH (21:41)
[2016-12-15] MEDS: SIMVASTATIN 10 MG TABLET PO SCH (21:41)
[2016-12-15 23:00] VITALS: BP 116/45
[2016-12-16 03:00] VITALS: BP 119/58
[2016-12-16] MEDS: CEFEPIME HCL 1 GM in IV NORMAL SALINE 50ML 50 ML IV SCH ×2 (06:13→14:40)
[2016-12-16 07:00] VITALS: BP 112/51
[2016-12-16] MEDS: IPRATRPIUM/ALBUTEROL 0.5/2.5MG 3 ML NEBU. NEB SCH ×2 (07:31→11:53)
[2016-12-16] MEDS: CARVEDILOL 3.125 MG TABLET. PO SCH (08:52)
[2016-12-16] MEDS: ENOXAPARIN 40 MG/0.4 ML SYRINGE. SQ SCH (08:52)
[2016-12-16] MEDS: DULoxetine HCL 30 MG CAPSULE.DR PO SCH (08:52)
[2016-12-16] MEDS: POTASSIUM CHLORIDE 20 MEQ TABLET.ER. PO SCH (08:53)
[2016-12-16] MEDS: FUROSEMIDE 20 MG TABLET PO SCH (08:53)
[2016-12-16] MEDS: predniSONE 20 MG TABLET PO SCH (09:00)
--- NOTE | 2016-12-16 10:25 | PDOC ---
PROGRESS NOTES Subjective Subjective back to base line ,feeling better Objective Objective Vital Signs Date Time Temp Pulse Resp B/P (MAP) Pulse Ox O2 Delivery O2 Flow Rate FiO2 12/16/16 08:52 70 112/51 12/16/16 08:00 Nasal Cannula 2.0 12/16/16 07:32 97 12/16/16 07:00 97.7 18 97.7 Intake and Output 12/16/16 07:00 Intake Total 1050 ml Balance 1050 ml Intake Oral 1000 ml IV Total 50 ml # Voids 3 # Bowel Movements 1 Physical Exam Abdomen: Normal bowel sounds, Soft, No tenderness, No masses Heart: Regular rate, Normal S1, Normal S2, No murmurs Extremities: No clubbing, No cyanosis, No edema General: Alert, Oriented X3, Cooperative, No acute distress HEENT: Atraumatic, PERRLA, EOMI Lungs: Clear to auscultation MUSCULOSKELETAL: No joint tenderness, Abnormal active ROM of Neck: Supple, No JVD, No thyromegaly Neuro: Normal gait, Normal tone Psych/Mental Status: Mental status NL Skin: No rashes, No breakdown COMMENT oxygen N/C Diagnosis Problem List Problems Medical Problems: (1) Pneumonia Status: Acute Assessment Assessment Problems Medical Problems: (1) Pneumonia Status: Acute Assessment 1.Acute resp failure with hypoxia and hypercapnia. 2.Health care associated Pneumonia. 3.Encephalopathy due to resp failure 4.Ch COPD 5.CAD stable 6.Left mastectomy for breast ca 7. H/o Colostomy for diverticular perforation Plan Plan: oral meds today prednisone oral taper d/c back to [facility] today spojke with RN and social service For more details regarding further plans, please refer to the orders. Problems: Plan Plan of Care Problems Medical Problems: (1) Pneumonia Status: Acute Comment Review of Relevant I have reviewed the following items rivas (where applicable) has been applied. Labs Microbiology 12/07/16 Blood Culture - Final, Complete NO GROWTH AFTER 5 DAYS 12/08/16 Gram Stain - Final, Complete Vitals/I & O Vital Sign - Last 24 Hours 12/15/16 12/15/16 12/15/16 12/15/16 10:35 11:39 15:00 16:36 Temp 96.4 97.9 96.4 97.9 Pulse 78 77 Resp 24 24 B/P (MAP) 103/46 (65) 125/61 (82) Pulse Ox 94 96 97 O2 Delivery Nasal Cannula Nasal Cannula Nasal Cannula Nasal Cannula O2 Flow Rate 2.0 1.5 2.0 1.5 12/15/16 12/15/16 12/15/16 12/15/16 17:48 19:00 19:53 20:00 Temp 97.7 97.7 Pulse 77 80 Resp 16 B/P (MAP) 125/61 103/43 (63) Pulse Ox 94 O2 Delivery Nasal Cannula Nasal Cannula Nasal Cannula O2 Flow Rate 2.0 1.5 2.0 12/15/16 12/15/16 12/16/16 12/16/16 20:20 23:00 03:00 07:00 Temp 97.5 97.9 97.7 97.5 97.9 97.7 Pulse 75 76 70 Resp 16 16 18 B/P (MAP) 116/45 (68) 119/58 (78) 112/51 (71) Pulse Ox 94 98 95 O2 Delivery Nasal Cannula Nasal Cannula Nasal Cannula Nasal Cannula O2 Flow Rate 2.0 2.0 2.0 1.5 12/16/16 12/16/16 12/16/16 07:32 08:00 08:52 Pulse 70 B/P (MAP) 112/51 Pulse Ox 97 O2 Delivery Nasal Cannula Nasal Cannula O2 Flow Rate 1.5 2.0 Intake and Output 12/15/16 12/15/16 12/16/16 15:00 23:00 07:00 Intake Total 50 ml 1000 ml Balance 50 ml 1000 ml YUE WYMAN MD Dec 16, 2016 10:25
--- NOTE | 2016-12-16 10:44 | PDOC ---
PROGRESS NOTES Subjective Subjective No new complaints. Objective Objective Vital Signs Date Time Temp Pulse Resp B/P (MAP) Pulse Ox O2 Delivery O2 Flow Rate FiO2 12/16/16 08:52 70 112/51 12/16/16 08:00 Nasal Cannula 2.0 12/16/16 07:32 97 12/16/16 07:00 97.7 18 97.7 Intake and Output 12/16/16 07:00 Intake Total 1050 ml Balance 1050 ml Intake Oral 1000 ml IV Total 50 ml # Voids 3 # Bowel Movements 1 Physical Exam Physical Exam She is alert,comfortable supine in bed. Assessment Assessment Problems Medical Problems: (1) Pneumonia Status: Acute Plan Plan of Care Agree with plans for transfer to [place] when medically ready. Comment Review of Relevant I have reviewed the following items rivas (where applicable) has been applied. Labs Microbiology 12/07/16 Blood Culture - Final, Complete NO GROWTH AFTER 5 DAYS 12/08/16 Gram Stain - Final, Complete Medications Current Medications Sodium Chloride 1,000 ml @ 1,000 mls/hr 1X ONCE IV Last administered on 19:30; Start 12/07/16 at 19:30; Stop 12/07/16 at 20:29; Status DC Iohexol (Omnipaque 300 Mg/ml) 75 ml 1X ONCE IV Last administered on 12/07/16 20:37; Start 12/07/16 at 20:15; Stop 12/07/16 at 20:17; Status DC Cefepime HCl 1 gm/ Sodium Chloride 50 ml @ 100 mls/hr Q8HRS IV Last administered on 12/16/16 06:13; Start 12/07/16 at 22:00 Vancomycin HCl (Vanco Per Pharmacy) 1 each PRN DAILY PRN MC SEE COMMENTS Last administered on 12/12/16 12:33; Start 12/07/16 at 21:00; Stop 12/12/16 at 16:21; Status DC Ondansetron HCl (Zofran) 4 mg PRN Q8HRS PRN IV NAUSEA/VOMITING; Start 12/07/16 at 21:00; Stop 12/08/16 at 20:59; Status DC Morphine Sulfate 4 mg PRN Q2HR PRN IV PAIN; Start 12/07/16 at 21:00; Stop at 20:59; Status DC Acetaminophen (Tylenol) 650 mg PRN Q4HRS PRN PO FEVER; Start 12/07/16 at 21:00; Stop 12/08/16 at 20:59; Status DC Vancomycin HCl 2 gm/Sodium Chloride 500 ml @ 250 mls/hr 1X ONCE IV Last administered on 12/07/16 22:08; Start 12/07/16 at 21:30; Stop 12/07/16 at 23:29; Status DC Albuterol/ Ipratropium (Duoneb) 3 ml RTQID NEB Last administered on 12/16/16 07:31; Start 12/08/16 at 08:00 Albuterol Sulfate (Ventolin Neb Soln) 2.5 mg PRN QID PRN NEB SHORTNESS OF BREATH; Start 12/07/16 at 22:30 Sodium Chloride 1,000 ml @ 75 mls/hr [id number] IV Last administered on 12/10/16 18:26; Start 12/07/16 at 22:30; Stop 12/11/16 at 13:18; Status DC Methylprednisolone Sodium Succinate (SOLU-Medrol 125MG VIAL) 80 mg Q8HRS IV Last administered on 12/11/16 14:40; Start 12/08/16 at 06:00; Stop 12/11/16 at 16: 16; Status DC Carvedilol (Coreg) 3.125 mg BIDWMEALS PO Last administered on 12/16/16 08:52; Start 12/08/16 at 08:00 Diazepam (Valium) 5 mg HS PO Last administered on 12/15/16 21:41; Start at 23:00 Famotidine (Pepcid) 20 mg HS PO Last administered on 12/15/16 21:41; Start 12/07/16 at 23:00 Furosemide (Lasix) 20 mg DAILY PO Last administered on 12/16/16 08:53; Start 12/08/16 at 09:00 Potassium Chloride (Klor-Con) 20 meq BIDWMEALS PO Last administered on 08:53; Start 12/08/16 at 08:00 Simvastatin (Zocor) 5 mg HS PO Last administered on 12/15/16 21:41; Start 12/07 at 21:00 Duloxetine HCl (Cymbalta) 60 mg DAILY PO Last administered on 12/16/16 08:52; Start 12/08/16 at 09:00 Acetaminophen/ Hydrocodone Bitart (Lortab 5/325) 1 tab PRN Q4HRS PRN PO MILD PAIN Last administered on 12/15/16 06:34; Start 12/07/16 at 22:15 Enoxaparin Sodium (Lovenox 40mg Syringe) 40 mg Q24H SQ Last administered on 12/08 00:21; Start 12/07/16 at 22:30; Stop 12/08/16 at 10:29; Status DC Vancomycin HCl 1.75 gm/Sodium Chloride 500 ml @ 250 mls/hr Q12H IV Last administered on 12/12/16 12:45; Start 12/08/16 at 10:00; Stop 12/12/16 at 16:17; Status DC Vancomycin HCl 1 each 1X ONCE MC ; Start 12/09/16 at 09:30; Stop 12/09/16 at 09: 31; Status DC Enoxaparin Sodium (Lovenox 40mg Syringe) 40 mg BID SQ Last administered on 12/16 08:52; Start 12/08/16 at 21:00 Amino Acids/ Glycerin/ Electrolytes 1,000 ml @ 80 mls/hr [id number] IV ; Start 12/09/16 at 10:30; Stop 12/09/16 at 21:59; Status DC Info 1 each PRN DAILY PRN MC SEE COMMENTS Last administered on 12/11/16 10:50; Start 12/09/16 at 10:30; Stop 12/11/16 at 13:18; Status DC Sodium Chloride 40 meq/Potassium Chloride 40 meq/ Potassium Phosphate 13.6 mmol/ Magnesium Sulfate 10 meq/ Calcium Gluconate 10 meq/ Multivitamins 10 ml/Chromium / Copper/Manganese/ Seleni/Zn 1 ml/ Total Parenteral Nutrition/Amino Acids/ Dextrose/ Fat Emulsion Intravenous 1,512 ml @ 63 mls/hr TPN CONT IV Last administered on 12/09/16 22:48; Start 12/09/16 at 22:00; Stop 12/10/16 at 21:59; Status DC Sodium Chloride 40 meq/Potassium Chloride 40 meq/ Potassium Phosphate 13.6 mmol/ Magnesium Sulfate 10 meq/ Calcium Gluconate 10 meq/ Multivitamins 10 ml/Chromium / Copper/Manganese/ Seleni/Zn 1 ml/ Total Parenteral Nutrition/Amino Acids/ Dextrose/ Fat Emulsion Intravenous 1,512 ml @ 63 mls/hr TPN CONT IV ; Start at 22:00; Stop 12/11/16 at 13:19; Status DC Methylprednisolone Sodium Succinate (SOLU-Medrol 125MG VIAL) 80 mg BID IV Last administered on 12/12/16 08:47; Start 12/11/16 at 21:00; Stop 12/12/16 at 16:17; Status DC Prednisone (Prednisone) 20 mg DAILY PO Last administered on 12/16/16 09:00; Start 12/13/16 at 09:00 Active Scripts Active Prednisone 20 Mg Tablet 50 Mg PO DAILY 5 Days Reported Diazepam 5 Mg Tablet 5 Mg PO HS Simvastatin 5 Mg Tablet 5 Mg PO HS Pepcid (Famotidine) 20 Mg Tablet 20 Mg PO HS Cymbalta (Duloxetine Hcl) 60 Mg Capsule.dr 60 Mg PO DAILY Carvedilol 3.125 Mg Tablet 1 Tab PO BID Klor-Con M20 (Potassium Chloride) 20 Meq Tab.er.prt 20 Meq PO BID Furosemide 20 Mg Tablet 20 Mg PO DAILY Vitals/I & O Vital Sign - Last 24 Hours 12/15/16 12/15/16 12/15/16 12/15/16 11:39 15:00 16:36 17:48 Temp 97.9 97.9 Pulse 77 77 Resp 24 B/P (MAP) 125/61 (82) 125/61 Pulse Ox 96 97 O2 Delivery Nasal Cannula Nasal Cannula Nasal Cannula O2 Flow Rate 1.5 2.0 1.5 12/15/16 12/15/16 12/15/16 12/15/16 19:00 19:53 20:00 20:20 Temp 97.7 97.7 Pulse 80 Resp 16 B/P (MAP) 103/43 (63) Pulse Ox 94 O2 Delivery Nasal Cannula Nasal Cannula Nasal Cannula Nasal Cannula O2 Flow Rate 2.0 1.5 2.0 2.0 12/15/16 12/16/16 12/16/16 12/16/16 23:00 03:00 07:00 07:32 Temp 97.5 97.9 97.7 97.5 97.9 97.7 Pulse 75 76 70 Resp 16 16 18 B/P (MAP) 116/45 (68) 119/58 (78) 112/51 (71) Pulse Ox 94 98 95 97 O2 Delivery Nasal Cannula Nasal Cannula Nasal Cannula Nasal Cannula O2 Flow Rate 2.0 2.0 1.5 1.5 12/16/16 12/16/16 08:00 08:52 Pulse 70 B/P (MAP) 112/51 O2 Delivery Nasal Cannula O2 Flow Rate 2.0 Intake and Output 12/15/16 12/15/16 12/16/16 15:00 23:00 07:00 Intake Total 50 ml 1000 ml Balance 50 ml 1000 ml TONYA BONILLA MD Dec 16, 2016 10:44
[2016-12-16 11:00] VITALS: BP 107/48
--- NOTE | 2016-12-16 11:51 | PDOC ---
PULMONARY PROGRESS NOTES Subjective PT ON 02 N/C NO COMPLAINTS Vitals Vital Signs Date Time Temp Pulse Resp B/P (MAP) Pulse Ox O2 Delivery O2 Flow Rate FiO2 12/16/16 11:00 97.7 76 16 107/48 (67) 95 Room Air 2.0 97.7 ROS: No Nausea, No Chest Pain, No Abdominal Pain, No Increase Cough General: Alert Lungs: Clear Cardiovascular: S1 Abdomen: Soft Neuro Exam: Alert Extremities: No Edema Medications Active Scripts Medications Dose Route/Sig Max Daily Dose Days Date Category Prednisone 20 Mg Tablet 50 Mg PO DAILY 5 07/09/16 Rx Diazepam 5 Mg Tablet 5 Mg PO HS 07/06/16 Reported Simvastatin 5 Mg Tablet 5 Mg PO HS 07/06/16 Reported Pepcid (Famotidine) 20 Mg Tablet 20 Mg PO HS 07/06/16 Reported Cymbalta (Duloxetine Hcl) 60 Mg Capsule.dr 60 Mg PO DAILY 07/06/16 Reported Carvedilol 3.125 Mg Tablet 1 Tab PO BID 07/06/16 Reported Klor-Con M20 (Potassium Chloride) 20 Meq Tab.er.prt 20 Meq PO BID 07/06/16 Reported Furosemide 20 Mg Tablet 20 Mg PO DAILY 07/06/16 Reported Comments IMPRESSION: 1. Mild cardiomegaly. 2. Mild ongoing bilateral infrahilar atelectasis and/or pneumonitis. Impression . ACUTE/ CHRONIC HYPERCAPNIA RESP FAILURE/ COMPENSATED AECOPD PNEUMONIA , CLINICALLY RESOLVED. 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 RESP STATUS IS COMPENSATED PRN BIPAP PT DOING BETTER ON 2 LITER NO NEED FOR BIPAP QHS UNLESS PT IN DISTRESS ANTIBX CAN BE CHANGED TO PO PRED TAPER DVT AND GI PROPH OK WITH DC TO REHAB JENNY TRIPP MD Dec 16, 2016 11:51
[2016-12-16] MEDS: HYDROcodone/APAP 5/325MG 1 TAB TABLET PO PRN (13:04)
--- NOTE | 2016-12-20 10:28 | PDOC3 ---
IM DISCHARGE SUMMARY Date of Admission Date of Admission Date of Admission: Dec 07, 2016 at 20:37 Date of Discharge Date of Discharge 12/16/16 Primary Diagnosis Primary Diagnosis Problems Medical Problems: (1) Pneumonia Status: Acute Problems: Consults Consults pulmonary -dr [facility] - dr Zepeda Procedures Procedures CTA -neg for PE Brief hospital course Brief hospital course This year 71 yr old female has been admitted with a chief complaint of sob, mental status changes, found to have bilateral pneumonia.Pt was placed on BIPAP , more lethargic,was transfer to ICU. pt from [place] ,[facility], h/o severe copd.cough and congestion for last couple of days.Pt was placed on BIPAP and TPN for nutrition, seen by pulmonary.Pt was given iv solumedrol and iv antibiotics. pt was moved out of icu after 4 days stay and seen by rehab.CTA -neg for PE. pt condition improved and she was discharged back to [place], she is on home oxygen, For more details regarding the past history, family history, social history, surgical history and other details, please refer to History and Physical. Allergy Allergies Coded Allergies Type Severity Reaction Last Updated Verified KAMERON Inhibitors Allergy Severe angioedema 07/09/16 Yes aspirin Allergy Intermediate 09/10/15 Yes Follow up in 5 days. DISPOSITION: Jail facility Comments Discharge Management - 35 minutes. For other details please refer to discharge instructions YUE WYMAN MD Dec 20, 2016 10:28
== END 2016-12-16 16:35 | DRG 189 ==
LOC: ER 18:54 → 6 SOUTH 20:37 → 1 WEST ICU 12-08 10:21 → 6 SOUTH 12-11 15:10
PROVIDERS: ADMIT Internal Medicine; ATTEND Internal Medicine
PROC: 5A09457 Assistance with Respiratory Ventilation, 24-96 Consecutive Hours, Continuous Positive Airway Pressure (ICD-10-PCS; principal; 2016-12-08)
DX: J96.01 Acute respiratory failure with hypoxia (principal); G92 Toxic encephalopathy; J18.9 Pneumonia, unspecified organism; Z68.42 Body mass index [BMI] 45.0-49.9, adult; J44.0 Chronic obstructive pulmonary disease with (acute) lower respiratory infection; J44.1 Chronic obstructive pulmonary disease with (acute) exacerbation; J96.02 Acute respiratory failure with hypercapnia; E66.9 Obesity, unspecified; E78.5 Hyperlipidemia, unspecified; G62.9 Polyneuropathy, unspecified; G89.29 Other chronic pain; I11.0 Hypertensive heart disease with heart failure; I25.10 Atherosclerotic heart disease of native coronary artery without angina pectoris; I50.9 Heart failure, unspecified; K21.9 Gastro-esophageal reflux disease without esophagitis; M17.0 Bilateral primary osteoarthritis of knee; Y95 Nosocomial condition; Z85.3 Personal history of malignant neoplasm of breast; Z87.891 Personal history of nicotine dependence; Z90.12 Acquired absence of left breast and nipple; Z93.3 Colostomy status; Z88.6 Allergy status to analgesic agent; Z87.440 Personal history of urinary (tract) infections; Z79.899 Other long term (current) drug therapy
CPT/HCPCS: 36415; 36569; 36600; 51701; 71010; 71275; 80048; 80053; 80202; 81001; 82805; 83605; 83690; 83735; 84100; 84484; 85007; 85027; 87040; 87070; 87205; 87641; 87804; 93005; 94640; 94660; 94760; 96360; 96361; A6539; J0610; J0692; J1650; J2930; J3370; J3475; J7030; J7040; J7512; J7620; Q9967; 99285-25